=== PATIENT | male | born 1940 | race Hispanic/Latino ===

== ENCOUNTER → 2018-01-30 | Outpatient (CLI) | payer OTHER ==
[~2018-01-30] MED LIST: AMLODIPINE BESY10 MG PO; ASPIR 8181 MG PO; ATORVASTATIN CA40 MG PO; CLOPIDOGREL75 MG PO; FAMOTIDINE20 MG PO; HYDROCHLOROTHIA25 MG PO; IOPAMIDOL 370 MG/ML 200 ML INFUS..BTL INJ ONE; ISOSORBIDE MONO60 MG PO; KLOR-CON 1010 MEQ PO; LASIX20 MG PO; LEVAQUIN500 MG PO; LEVEMIR100 UNIT/1 SQ; LISINOPRIL10 MG PO; METOPROLOL TART25 MG PO; NITROGLYCERIN0.4 MG SL; NOVOLOG100 UNITS1 SQ; POTASSIUM PO; SODIUM CHLORIDE 0.9% 100 ML 100 ML ONE; SODIUM CHLORIDE 0.9% 250ML 250 ML ONE; SODIUM CHLORIDE 0.9% 500ML 500 ML ONE; TAMSULOSIN HCL0.4 MG PO; VITAMIN D PO
[2018-01-30 08:06] LABS: CREATININE, SERUM 1.9 mg/dL (0.72-1.25)
--- NOTE | 2018-01-30 14:52 | Diagnostic Imaging Report ---
PROCEDURE:CTA ABD/PEL/BILATERAL LOWER EXT RUNOFF COMPARISON:None. INDICATIONS:Pseudoaneurysm TECHNIQUE: Multi-detector CT technology with Dose Reduction was employed. Images were obtained after the administration of 100 cc intravenously. For optimization of anatomic evaluation, multiplanar and volume rendering reconstructions were performed. Advanced 3-D off-line postprocessing were performed on a dedicated stand-alone workstation under the direct supervision of the interpreting physician. ESTIMATED DOSE: DLP: 1221 mGy-cm FINDINGS: Aortic and visceral branch vessels: There is a small to moderate amount of plaque throughout the abdominal aorta and branch vessels. There is no aortic aneurysm or dissection. Suprarenal abdominal aorta measures up to 2.5 cm and the infrarenal abdominal aorta measures up to 1.9 cm. The celiac, inferior mesenteric, and renal arteries are patent without significant narrowing. There is a focal dissection flap at the origin of the superior mesenteric artery (series 3, image 28) with mild luminal narrowing. There is a replaced hepatic artery off the SMA which gives rise to the right and left hepatic arteries. There are two right and a single left renal artery. Pelvic vessels: Right common iliac artery: There is a focal dissection flap of the distal right common iliac artery extending into the proximal right external iliac artery (series 3, image 72). The bilateral common, external and internal iliac arteries are patent with scattered atherosclerotic changes. No significant areas of narrowing. Right lower extremity: There is a partially thrombosed pseudoaneurysm arising from the right common femoral artery measuring up to 2.6 x 3.4 x 3.1 cm (AP x TV x SI) on axial series 3 image 106 and coronal series 403 image 59. The neck is not well opacified but measures approximately 2 mm in width and 8 mm in length. The right common femoral, superficial femoral, deep femoral, and popliteal arteries are patent. Mild atherosclerotic changes in the distal popliteal artery. There is a 3 vessel patent run off to the right leg. Left lower extremity: The left common femoral, superficial femoral, deep femoral, and popliteal arteries are patent. Mild atherosclerotic changes in the distal popliteal artery. There is a 3 vessel patent run off to the left leg. There is subcutaneous edema throughout the left lower leg and foot. Surgical clips are present in the left medial thigh. Abdominal and Pelvic soft-tissues and organs: Lung bases: Coronary atherosclerosis. Liver: No focal hepatic lesions on arterial phase imaging. No biliary ductal dilatation. Spleen: No splenomegaly. Pancreas: No pancreatic ductal dilatation. Subcentimeter hypodensity in the pancreatic head, likely side branch IPMN. Adrenal Glands: No evidence of nodule. Kidneys: No evidence of hydronephrosis or stone. A 3 cm hypodense cyst (18 HU) is present in the left mid pole kidney. Lymph nodes: No lymphadenopathy. GI: No bowel distention or wall thickening. Normal appendix. Peritoneum/Retroperitoneum: No free air or fluid. Pelvis: Bladder is unremarkable. Musculoskeletal: Fat containing ventral hernia. Subcutaneous stranding/edema is present in the anterior abdominal wall. Scattered degenerative endplate changes in the lumbar spine. Grade 1 anterolisthesis of L4 on L5. 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 Neck measuring 2 mm in width and approximately 8 mm in length. 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 Incidental focal dissection involving the distal right common iliac artery extending into the proximal right external iliac artery. Scattered atherosclerotic changes as above without significant visceral or lower extremity vascular narrowing or aneurysm. Three vessel runoff to bilateral lower extremities. Dictated by: ANGELA REESE M.D. on 01/30/2018 at 10:38 Electronically approved by: ANGELA REESE M.D. on 01/30/2018 at 10:38
== END ==
LOC: CT 07:20
DX: I72.8 Aneurysm of other specified arteries (principal)
CPT/HCPCS: 36415; 75635; 82565; 82948; 84520; J7040; J7050; Q9967

== ENCOUNTER 2019-09-19 15:37 | Inpatient (IN) | payer OTHER ==
[~2019-09-19] VITALS: Ht 170.2 cm; Wt 86.0 kg
[~2019-09-19 15:37] MED LIST changes: -IOPAMIDOL 370 MG/ML 200 ML INFUS..BTL INJ ONE; -SODIUM CHLORIDE 0.9% 100 ML 100 ML ONE; -SODIUM CHLORIDE 0.9% 250ML 250 ML ONE; -SODIUM CHLORIDE 0.9% 500ML 500 ML ONE
--- OUTSIDE RECORDS SUMMARY | 2019-09-19 15:42 | XMS REPORT | Summary of Care ---
Author Author VENU FLOR Organization Unknown Address Unknown Phone Unavailable Care Team Providers Care Graphite Grinder Name Role Phone IVY Oliveira, DAYSI Unavailable Unavailable VENU FLOR Unavailable Unavailable TAQUERIA TOLLIVER MD Unavailable Unavailable DAYSI HAYNES MD Unavailable Unavailable BRYAN KOCH, TREY Mendenhall Unavailable Unavailable HEMATGREGORY KOCH [place], KEYA Unavailable Unavailable JUANCARLOS KOCH, GRANT Grover Unavailable Unavailable Unavailable Unavailable Functional Status Name Dates Details Functional status health issues are not documented Status: Name Dates Details Cognitive status health issues are not documented Status: Problems Name Dates Details Diabetes mellitus (250.00, E11.9) Status: Active Atrial fibrillation (427.31, I48.91) Status: Active Fatigue (780.79, R53.83) Status: Active CKD (chronic kidney disease) (585.9, N18.9) Status: Active Type 2 diabetes mellitus with other circulatory complication, 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 Active Levemir FlexTouch 100 UNIT/ML Subcutaneous Solution Pen-injector INJECT 38-40 UNIT EVERY NIGHT; may titrate up to 60 units a day * Quantity: 4 Refills: 1 IVY M.D., DAYSI Active 5 x 3 ML Pen NovoLOG FlexPen 100 UNIT/ML Subcutaneous Solution Pen-injector INJECT 13-16 UNIT Before meals; 2 for snacks; CF 40; up to 80 units a day * Quantity: 5 Refills: 1 IVY M.D., DAYSI Active 5 x 3 ML Pen Atorvastatin Calcium 80 MG Oral Tablet Per inspector paper products * Refills: 0 IVY M.D., DAYSI Active Vitamin D 50 MCG (1999) Oral Tablet TAKE 1 TABLET DAILY * Refills: 0 Active Furosemide 40 MG Oral Tablet * Refills: 0 IVY M.D., DAYSI Active Xarelto 15 MG Oral Tablet * Refills: 0 DAYSI HAYNES M.D. * Start : 18-May-2017 Active Metoprolol Tartrate 25 MG Oral Tablet * Refills: 0 DAYSI HAYNES M.D. * Start : 18-May-2017 Active Pen [place] 32G X 4 MM 6 a day * Quantity: 500 Refills: 4 DAYSI HAYNES M.D. * Start : 18-May-2017 Active OneTouch Verio In Vitro Strip CHECK BLOOD GLUCOSE 3-4 TIMES A DAY * Quantity: 300 Refills: 3 DAYSI HAYNES M.D. * Start : 18-May-2017 Active OneTouch Delica Lancets 33G USE DIRECTED THREE TIMES DAILY OR FOUR TIMES DAILY * Quantity: 4 Refills: 0 DAYSI HAYNES M.D. * Start : 18-May-2017 Active Each Clopidogrel Bisulfate 75 MG Oral Tablet * Refills: 0 DAYSI HAYNES M.D. * Start : 06-Nov-2017 Active Tylenol with Codeine #3 300-30 MG Oral Tablet Not taking * Refills: 0 DAYSI HAYNES M.D. * Start : 06-Feb-2018 Active Nitroglycerin 0.4 MG Sublingual Tablet Sublingual * Refills: 0 DAYSI HAYNES M.D. * Start : 06-Feb-2018 Active Ranexa 500 MG Oral Tablet Extended Release 12 Hour * Refills: 0 DAYSI HAYNES M.D. * Start : 06-Feb-2018 Active Famotidine 20 MG Oral Tablet * Refills: 0 DAYSI HAYNES M.D. * Start : 06-Feb-2018 Active hydrALAZINE HCl - 25 MG Oral Tablet * Refills: 0 DAYSI HAYNES M.D. * Start : 25-May-2018 Active Aspirin Adult Low Dose 81 MG Oral Tablet Delayed Release * Refills: 0 DAYSI HAYNES M.D. * Start : 24-Dec-2018 Active metOLazone 5 MG Oral Tablet * Refills: 0 DAYSI HAYNES M.D. * Start : 24-Dec-2018 Active Potassium Chloride ER 10 MEQ Oral Capsule Extended Release * Refills: 0 DAYSI HAYNES M.D. * Start : 24-Dec-2018 Active Ferrous Sulfate 325 (65 Fe) MG Oral Tablet * Refills: 0 IVY M.D., DAYSI * Start : 24-Dec-2018 Active Allopurinol 100 MG Oral Tablet * Refills: 0 IVY Oliveira, DAYSI * Start : 17-May-2019 Active Colcrys 0.6 MG Oral Tablet * Refills: 0 IVY Oliveira, DAYSI * Start : 17-May-2019 Active Allergies and Adverse Reactions Name Dates Details No Known Drug Allergies (Allergy) Status: Active Past Medical History Name Dates Details History of BPH (V13.89, Z87.438) Status: Resolved History of coronary atherosclerosis (V12.59, Z86.79) Status: Resolved Procedures Procedure Dates Details [[facility]] HEMOGLOBIN A1c Date: 17-May-2019 [[facility]] LIPID PANEL Date: 17-May-2019 History of Coronary artery bypass graft Completed History of Percutaneous transluminal coronary angioplasty Completed History of Prostate resection transurethral Completed History of PTCA Completed History of Implantable Cardioverter-Defibrillator Completed Immunization Name Dates Details Influenza Comments: Approx [id number] Influenza on: 09-May-2019 Family History Name Dates Details Family history of diabetes mellitus (V18.0, Z83.3) Status: Active Name Dates Details Family history of coronary artery disease (V17.3, Z82.49) Status: Active Name Dates Details Family history of diabetes mellitus (V18.0, Z83.3) Status: Active Name Dates Details Family history of diabetes mellitus (V18.0, Z83.3) Status: Active Social History Name Dates Details - Status: Name Dates Details Never smoker Vital Signs Date Test Result Details No Known Vitals to report Results Date Description Value Details 22-Feb-20196:00 Positive Retinal Eye Exam (Diabetic) Positive Diabetic Eye Screening [id number] (Abnormal) Plan of Care Name Dates Details Planned Observations Planned Goals not documented Planned Encounters Appointment; VENU FLOR On: 20-Jun-2019 9:00 Appointment; GRANT BAUER M.D. On: 22-Jul-2019 13:45 Appointment; DAYSI HAYNES M.D. On: 11-Sep-2019 14:45 Instructions Name Dates Details Instructions not documented Encounters Appointment; DAYSI HAYNES M.D. Encounter Diagnosis: Problem not documented On: 08-Aug-2017 14:15 Appointment; DAYSI HAYNES M.D. Encounter Diagnosis: Problem not documented On: 06-Nov-2017 15:15 Appointment; DAYSI HAYNES M.D. Encounter Diagnosis: Problem not documented On: 06-Feb-2018 15:15 Appointment; DAYSI HAYNES M.D. Encounter Diagnosis: Problem not documented On: 25-May-2018 13:30 Appointment; DAYSI HAYNES M.D. Encounter Diagnosis: Problem not documented On: 23-Aug-2018 14:15 Appointment; DAYSI HAYNES M.D. Encounter Diagnosis: Problem not documented On: 24-Dec-2018 13:00 Appointment; KEYA MAGALLON Encounter Diagnosis: Problem not documented On: 05-Feb-2019 9:45 Appointment; JOANA, RAJAT Encounter Diagnosis: Problem not documented On: 26-Mar-2019 14:30 Appointment; DAYSI HAYNES M.D. Encounter Diagnosis: Problem not documented On: 17-May-2019 13:00 Appointment; VENU FLOR Encounter Diagnosis: Problem not documented On: 18-Jun-2019 10:30
--- OUTSIDE RECORDS SUMMARY | 2019-09-19 15:42 | XMS REPORT ---
[facility] Address Unknown Phone Unavailable Care Team Providers Care Public Health Educator Name Role Phone NICOLA MCCALL Unavailable Unavailable Payers Payer Name Policy Type Policy Number Effective Date Expiration Date Problems This patient has no known problems. Allergies, Adverse Reactions, Alerts Allergy Name Allergy Type Status Severity Reaction(s) Onset Date Inactive Date Treating Clinician Comments No Known Allergies DA Active U 2019-08-31 00:00:00 No Known Allergies DA Active U 2019-08-30 00:00:00 No Known Allergies DA Active U 2018-01-30 00:00:00 Medications This patient has no known medications. Results Test Description Test Time Test Comments Text Results Atomic Results Result Comments GLUBED 2019-09-12 11:45:00 GLUBED (test code=GLUBED) 137 mg/dL 74-106 Performed by certified dog food shredder operator at [facility] BASIC METABOLIC [id number] 07:30:00* Test Item Value Reference Range Comments SODIUM (test code=NA) 133 mmol/L 136-145 POTASSIUM (test code=K) 4.3 mmol/L 3.5-5.1 CHLORIDE (test code=CL) 101.0 mmol/L 98-107 CARBON DIOXIDE (test code=CO2) 23.0 mmol/L 21-32 ANION GAP (test code=GAP) 13.3 10-20 GLUCOSE (test code=GLU) 120 mg/dL 74-106 BLOOD UREA NITROGEN (test code=BUN) 84 mg/dL 7-18 GLOMERULAR FILTRATION RATE (test code=GFR) 25 mL/min >=60 Estimated GFR by using Modified MDRD formula.Chronic kidney disease is defined as either kidney damageor GFR <60 mL/min/1.73 m2 for >3 months. CREATININE (test code=CREAT) 2.50 mg/dL 0.7-1.3 BUN/CREATININE RATIO (test code=BUN/CREA) 33.6 10-20 CALCIUM (test code=CA) 8.3 mg/dL 8.5-10.1 BASIC METABOLIC [id number] 07:25:00* Test Item Value Reference Range Comments SODIUM (test code=NA) 133 mmol/L 136-145 POTASSIUM (test code=K) 4.3 mmol/L 3.5-5.1 CHLORIDE (test code=CL) 101.0 mmol/L 98-107 CARBON DIOXIDE (test code=CO2) mmol/L 21-32 ANION GAP (test code=GAP) 10-20 GLUCOSE (test code=GLU) mg/dL 74-106 BLOOD UREA NITROGEN (test code=BUN) mg/dL 7-18 GLOMERULAR FILTRATION RATE (test code=GFR) mL/min >=60 CREATININE (test code=CREAT) mg/dL 0.7-1.3 BUN/CREATININE RATIO (test code=BUN/CREA) 10-20 CALCIUM (test code=CA) mg/dL 8.5-10.1 CBC W/AUTO [id number] 06:58:00* Test Item Value Reference Range Comments WHITE BLOOD CELL (test code=WBC) 15.8 K/mm3 4.5-12.5 RED BLOOD CELL (test code=RBC) 3.17 mill/mm3 4.0-5.8 HEMOGLOBIN (test code=HGB) 9.5 gram/dL 13.0-17.5 HEMATOCRIT (test code=HCT) 28.6 % 42.0-52.0 MEAN CELL VOLUME (test code=MCV) 90.2 fL 80-98 MEAN CELL HGB (test code=MCH) 30.0 picogram 27.0-33.0 MEAN CELL HGB CONCETRATION (test code=MCHC) 33.2 gram/dL 33.0-36.0 RED CELL DISTRIBUTION WIDTH (test code=RDW) 17.3 % 11.6-16.2 RED CELL DISTRIBUTION WIDTH SD (test code=RDW-SD) 55.2 fL 37.0-51.0 PLATELET COUNT (test code=PLT) 208 K/mm3 150-450 MEAN PLATELET VOLUME (test code=MPV) 12.7 fL 6.7-11.0 NEUTROPHIL % (test code=NT%) 76.0 % 39.0-69.0 IMMATURE GRANULOCYTE % (test code=IG%) 2.0 % 0.0-5.0 LYMPHOCYTE % (test code=LY%) 8.5 % 25.0-55.0 MONOCYTE % (test code=MO%) 11.1 % 0.0-10.0 EOSINOPHIL % (test code=EO%) 2.3 % 0.0-5.0 BASOPHIL % (test code=BA%) 0.1 % 0.0-1.0 NUCLEATED RBC % (test code=NRBC%) 0.9 % 0-0 NEUTROPHIL # (test code=NT#) 12.03 K/mm3 1.8-7.7 IMMATURE GRANULOCYTE # (test code=IG#) 0.31 x10 3/uL 0-0.03 LYMPHOCYTE # (test code=LY#) 1.34 K/mm3 1.0-5.0 MONOCYTE # (test code=MO#) 1.76 K/mm3 0-0.8 EOSINOPHIL # (test code=EO#) 0.37 K/mm3 0.0-0.5 BASOPHIL # (test code=BA#) 0.02 K/mm3 0.0-0.2 NUCLEATED RBC # (test code=NRBC#) 0.15 K/mm3 0.0-0.1 MANUAL DIFF REQUIRED (test code=MDIFF) NO [id number] 05:43:00* Test Item Value Reference Range Comments GLUBED (test code=GLUBED) 127 mg/dL 74-106 Performed by certified dog food shredder operator at [facility] [id number] 21:17:00* Test Item Value Reference Range Comments GLUBED (test code=GLUBED) 251 mg/dL 74-106 Performed by certified dog food shredder operator at [facility] [id number] 14:58:00* Test Item Value Reference Range Comments GLUBED (test code=GLUBED) 131 mg/dL 74-106 Performed by certified dog food shredder operator at [facility] [id number] 10:57:00* Test Item Value Reference Range Comments GLUBED (test code=GLUBED) 131 mg/dL 74-106 Performed by certified dog food shredder operator at [facility] URINALYSIS [id number] 10:11:00* Test Item Value Reference Range Comments UA COLOR (test code=COLU) YELLOW YELLOW UA APPEARANCE (test code=APPU) CLEAR CLEAR UA GLUCOSE DIPSTICK (test code=DGLUU) NEGATIVE mg/dL NEGATIVE UA BILIRUBIN DIPSTICK (test code=BILU) NEGATIVE mg/dL NEGATIVE UA KETONE DIPSTICK (test code=KETU) NEGATIVE mg/dL NEGATIVE UA SPECIFIC GRAVITY (test code=SGU) 1.013 1.001-1.035 UA BLOOD DIPSTICK (test code=TIFF) 0.1 mg/dL (1+) mg/dL NEGATIVE UA PH DIPSTICK (test code=CRISTOFER) 5.0 5.0-8.0 UA PROTEIN DIPSTICK (test code=PROU) NEGATIVE mg/dL NEGATIVE UA UROBILINIOGEN DIPSTICK (test code=URO) Normal mg/dL NEGATIVE UA NITRITE DIPSTICK (test code=GENET) NEGATIVE NEGATIVE UA LEUKOCYTE ESTERASE W REFLEX (test code=LEUUR) 250 Isael/uL (2+) Isael/uL NEGATIVE UA WBC (test code=WBCU) 21-50 per HPF 0-5 UA RBC (test code=RBCU) 6-10 #/HPF 0-5 UA EPITHELIAL CELLS (test code=EPIU) FEW per HPF FEW UA BACTERIA (test code=BACU) FEW #/HPF NONE SPECIMEN COMMENTS: CLEAN CATCHUrine Source? Clean CatchURINALYSIS COMPLETE 2019-09-11 10:10:00* Test Item Value Reference Range Comments UA COLOR (test code=COLU) YELLOW YELLOW UA APPEARANCE (test code=APPU) CLEAR CLEAR UA GLUCOSE DIPSTICK (test code=DGLUU) NEGATIVE mg/dL NEGATIVE UA BILIRUBIN DIPSTICK (test code=BILU) NEGATIVE mg/dL NEGATIVE UA KETONE DIPSTICK (test code=KETU) NEGATIVE mg/dL NEGATIVE UA SPECIFIC GRAVITY (test code=SGU) 1.013 1.001-1.035 UA BLOOD DIPSTICK (test code=TIFF) 0.1 mg/dL (1+) mg/dL NEGATIVE UA PH DIPSTICK (test code=CRISTOFER) 5.0 5.0-8.0 UA PROTEIN DIPSTICK (test code=PROU) NEGATIVE mg/dL NEGATIVE UA UROBILINIOGEN DIPSTICK (test code=URO) Normal mg/dL NEGATIVE UA NITRITE DIPSTICK (test code=GENET) NEGATIVE NEGATIVE UA LEUKOCYTE ESTERASE W REFLEX (test code=LEUUR) 250 Isael/uL (2+) Isael/uL NEGATIVE UA WBC (test code=WBCU) per HPF 0-5 UA RBC (test code=RBCU) per HPF 0-5 UA EPITHELIAL CELLS (test code=EPIU) per HPF Few UA BACTERIA (test code=BACU) per HPF NONE SPECIMEN COMMENTS: CLEAN CATCHUrine Source? Clean CatchCBC W/MANUAL DIFF 2019-09-11 06:46:00* Test Item Value Reference Range Comments WHITE BLOOD CELL (test code=WBC) 20.0 K/mm3 4.5-12.5 RED BLOOD CELL (test code=RBC) 3.48 mill/mm3 4.0-5.8 HEMOGLOBIN (test code=HGB) 10.3 gram/dL 13.0-17.5 HEMATOCRIT (test code=HCT) 31.4 % 42.0-52.0 MEAN CELL VOLUME (test code=MCV) 90.2 fL 80-98 MEAN CELL HGB (test code=MCH) 29.6 picogram 27.0-33.0 MEAN CELL HGB CONCETRATION (test code=MCHC) 32.8 gram/dL 33.0-36.0 RED CELL DISTRIBUTION WIDTH (test code=RDW) 16.9 % 11.6-16.2 RED CELL DISTRIBUTION WIDTH SD (test code=RDW-SD) 53.8 fL 37.0-51.0 PLATELET COUNT (test code=PLT) 242 K/mm3 150-450 MEAN PLATELET VOLUME (test code=MPV) 12.5 fL 6.7-11.0 NEUTROPHIL % (test code=NT%) 71.0 % 39.0-69.0 IMMATURE GRANULOCYTE % (test code=IG%) 2.2 % 0.0-5.0 LYMPHOCYTE % (test code=LY%) 13.2 % 25.0-55.0 MONOCYTE % (test code=MO%) 11.4 % 0.0-10.0 EOSINOPHIL % (test code=EO%) 2.0 % 0.0-5.0 BASOPHIL % (test code=BA%) 0.2 % 0.0-1.0 NUCLEATED RBC % (test code=NRBC%) 1.8 % 0-0 NEUTROPHIL # (test code=NT#) 14.21 K/mm3 1.8-7.7 IMMATURE GRANULOCYTE # (test code=IG#) 0.43 x10 3/uL 0-0.03 LYMPHOCYTE # (test code=LY#) 2.63 K/mm3 1.0-5.0 MONOCYTE # (test code=MO#) 2.27 K/mm3 0-0.8 EOSINOPHIL # (test code=EO#) 0.39 K/mm3 0.0-0.5 BASOPHIL # (test code=BA#) 0.04 K/mm3 0.0-0.2 NUCLEATED RBC # (test code=NRBC#) 0.36 K/mm3 0.0-0.1 MANUAL DIFF REQUIRED (test code=MDIFF) DIFF NEEDED STAIN ACCEPTABILITY (test code=STN ACCEPTABLE) STAIN ACCEPTABLE TOTAL CELLS COUNTED (test code=TCC) 114 #CELLS SEGMENTED NEUTROPHILS (test code=SEG) 75.4 % 39-69 BAND NEUTROPHIL (test code=BAND) 0 % 0-10 LYMPHOCYTE (test code=LYMPH) 11.4 % 25-55 REACTIVE LYMPH (test code=RELYMPH) 0 % MONOCYTE (test code=MON) 7.9 % 0-10 EOSINOPHIL (test code=EOS) 5.3 % 0.0-5.0 BASOPHIL (test code=BASO) 0 % 0-1.0 METAMYELOCYTE (test code=META) 0 % 0-0 MYELOCYTE (test code=MYELO) 0 % 0.0-0.0 PROMYELOCYTE (test code=PROM) 0 % 0-0 POLYCHROMASIA (test code=POLC) 2+ ANISOCYTOSIS (test code=ANISO) 1+ MICROCYTOSIS (test code=MICR) 1+ PLATELET ESTIMATE (test code=PLTEST) ADEQUATE PLATELET MORPHOLOGY (test code=PLTMORPH) NORMAL IMMATURE FORMS (test code=IMMAT) 0 % 0-0 CBC W/MANUAL [id number] 06:35:00* Test Item Value Reference Range Comments WHITE BLOOD CELL (test code=WBC) 20.0 K/mm3 4.5-12.5 RED BLOOD CELL (test code=RBC) 3.48 mill/mm3 4.0-5.8 HEMOGLOBIN (test code=HGB) 10.3 gram/dL 13.0-17.5 HEMATOCRIT (test code=HCT) 31.4 % 42.0-52.0 MEAN CELL VOLUME (test code=MCV) 90.2 fL 80-98 MEAN CELL HGB (test code=MCH) 29.6 picogram 27.0-33.0 MEAN CELL HGB CONCETRATION (test code=MCHC) 32.8 gram/dL 33.0-36.0 RED CELL DISTRIBUTION WIDTH (test code=RDW) 16.9 % 11.6-16.2 RED CELL DISTRIBUTION WIDTH SD (test code=RDW-SD) 53.8 fL 37.0-51.0 PLATELET COUNT (test code=PLT) 242 K/mm3 150-450 MEAN PLATELET VOLUME (test code=MPV) 12.5 fL 6.7-11.0 NEUTROPHIL % (test code=NT%) 71.0 % 39.0-69.0 IMMATURE GRANULOCYTE % (test code=IG%) 2.2 % 0.0-5.0 LYMPHOCYTE % (test code=LY%) 13.2 % 25.0-55.0 MONOCYTE % (test code=MO%) 11.4 % 0.0-10.0 EOSINOPHIL % (test code=EO%) 2.0 % 0.0-5.0 BASOPHIL % (test code=BA%) 0.2 % 0.0-1.0 NUCLEATED RBC % (test code=NRBC%) 1.8 % 0-0 NEUTROPHIL # (test code=NT#) 14.21 K/mm3 1.8-7.7 IMMATURE GRANULOCYTE # (test code=IG#) 0.43 x10 3/uL 0-0.03 LYMPHOCYTE # (test code=LY#) 2.63 K/mm3 1.0-5.0 MONOCYTE # (test code=MO#) 2.27 K/mm3 0-0.8 EOSINOPHIL # (test code=EO#) 0.39 K/mm3 0.0-0.5 BASOPHIL # (test code=BA#) 0.04 K/mm3 0.0-0.2 NUCLEATED RBC # (test code=NRBC#) 0.36 K/mm3 0.0-0.1 MANUAL DIFF REQUIRED (test code=MDIFF) DIFF NEEDED STAIN ACCEPTABILITY (test code=STN ACCEPTABLE) TOTAL CELLS COUNTED (test code=TCC) #CELLS SEGMENTED NEUTROPHILS (test code=SEG) % 39-69 LYMPHOCYTE (test code=LYMPH) % 25-55 MONOCYTE (test code=MON) % 0-10 EOSINOPHIL (test code=EOS) % 0.0-5.0 CABOT RINGS (test code=CAB) MORPHOLOGY COMMENT (test code=MOC) PLATELET ESTIMATE (test code=PLTEST) PLATELET MORPHOLOGY (test code=PLTMORPH) CBC W/MANUAL [id number] 06:35:00* Test Item Value Reference Range Comments WHITE BLOOD CELL (test code=WBC) 20.0 K/mm3 4.5-12.5 RED BLOOD CELL (test code=RBC) 3.48 mill/mm3 4.0-5.8 HEMOGLOBIN (test code=HGB) 10.3 gram/dL 13.0-17.5 HEMATOCRIT (test code=HCT) 31.4 % 42.0-52.0 MEAN CELL VOLUME (test code=MCV) 90.2 fL 80-98 MEAN CELL HGB (test code=MCH) 29.6 picogram 27.0-33.0 MEAN CELL HGB CONCETRATION (test code=MCHC) 32.8 gram/dL 33.0-36.0 RED CELL DISTRIBUTION WIDTH (test code=RDW) 16.9 % 11.6-16.2 RED CELL DISTRIBUTION WIDTH SD (test code=RDW-SD) 53.8 fL 37.0-51.0 PLATELET COUNT (test code=PLT) 242 K/mm3 150-450 MEAN PLATELET VOLUME (test code=MPV) 12.5 fL 6.7-11.0 NEUTROPHIL % (test code=NT%) 71.0 % 39.0-69.0 IMMATURE GRANULOCYTE % (test code=IG%) 2.2 % 0.0-5.0 LYMPHOCYTE % (test code=LY%) 13.2 % 25.0-55.0 MONOCYTE % (test code=MO%) 11.4 % 0.0-10.0 EOSINOPHIL % (test code=EO%) 2.0 % 0.0-5.0 BASOPHIL % (test code=BA%) 0.2 % 0.0-1.0 NUCLEATED RBC % (test code=NRBC%) 1.8 % 0-0 NEUTROPHIL # (test code=NT#) 14.21 K/mm3 1.8-7.7 IMMATURE GRANULOCYTE # (test code=IG#) 0.43 x10 3/uL 0-0.03 LYMPHOCYTE # (test code=LY#) 2.63 K/mm3 1.0-5.0 MONOCYTE # (test code=MO#) 2.27 K/mm3 0-0.8 EOSINOPHIL # (test code=EO#) 0.39 K/mm3 0.0-0.5 BASOPHIL # (test code=BA#) 0.04 K/mm3 0.0-0.2 NUCLEATED RBC # (test code=NRBC#) 0.36 K/mm3 0.0-0.1 MANUAL DIFF REQUIRED (test code=MDIFF) DIFF NEEDED STAIN ACCEPTABILITY (test code=STN ACCEPTABLE) TOTAL CELLS COUNTED (test code=TCC) #CELLS SEGMENTED NEUTROPHILS (test code=SEG) % 39-69 LYMPHOCYTE (test code=LYMPH) % 25-55 MONOCYTE (test code=MON) % 0-10 EOSINOPHIL (test code=EOS) % 0.0-5.0 CABOT RINGS (test code=CAB) MORPHOLOGY COMMENT (test code=MOC) PLATELET ESTIMATE (test code=PLTEST) PLATELET MORPHOLOGY (test code=PLTMORPH) CBC W/MANUAL [id number] 06:35:00* Test Item Value Reference Range Comments WHITE BLOOD CELL (test code=WBC) 20.0 K/mm3 4.5-12.5 RED BLOOD CELL (test code=RBC) 3.48 mill/mm3 4.0-5.8 HEMOGLOBIN (test code=HGB) 10.3 gram/dL 13.0-17.5 HEMATOCRIT (test code=HCT) 31.4 % 42.0-52.0 MEAN CELL VOLUME (test code=MCV) 90.2 fL 80-98 MEAN CELL HGB (test code=MCH) 29.6 picogram 27.0-33.0 MEAN CELL HGB CONCETRATION (test code=MCHC) 32.8 gram/dL 33.0-36.0 RED CELL DISTRIBUTION WIDTH (test code=RDW) 16.9 % 11.6-16.2 RED CELL DISTRIBUTION WIDTH SD (test code=RDW-SD) 53.8 fL 37.0-51.0 PLATELET COUNT (test code=PLT) 242 K/mm3 150-450 MEAN PLATELET VOLUME (test code=MPV) 12.5 fL 6.7-11.0 NEUTROPHIL % (test code=NT%) 71.0 % 39.0-69.0 IMMATURE GRANULOCYTE % (test code=IG%) 2.2 % 0.0-5.0 LYMPHOCYTE % (test code=LY%) 13.2 % 25.0-55.0 MONOCYTE % (test code=MO%) 11.4 % 0.0-10.0 EOSINOPHIL % (test code=EO%) 2.0 % 0.0-5.0 BASOPHIL % (test code=BA%) 0.2 % 0.0-1.0 NUCLEATED RBC % (test code=NRBC%) 1.8 % 0-0 NEUTROPHIL # (test code=NT#) 14.21 K/mm3 1.8-7.7 IMMATURE GRANULOCYTE # (test code=IG#) 0.43 x10 3/uL 0-0.03 LYMPHOCYTE # (test code=LY#) 2.63 K/mm3 1.0-5.0 MONOCYTE # (test code=MO#) 2.27 K/mm3 0-0.8 EOSINOPHIL # (test code=EO#) 0.39 K/mm3 0.0-0.5 BASOPHIL # (test code=BA#) 0.04 K/mm3 0.0-0.2 NUCLEATED RBC # (test code=NRBC#) 0.36 K/mm3 0.0-0.1 MANUAL DIFF REQUIRED (test code=MDIFF) DIFF NEEDED STAIN ACCEPTABILITY (test code=STN ACCEPTABLE) TOTAL CELLS COUNTED (test code=TCC) #CELLS SEGMENTED NEUTROPHILS (test code=SEG) % 39-69 LYMPHOCYTE (test code=LYMPH) % 25-55 MONOCYTE (test code=MON) % 0-10 EOSINOPHIL (test code=EOS) % 0.0-5.0 MORPHOLOGY COMMENT (test code=MOC) PLATELET ESTIMATE (test code=PLTEST) PLATELET MORPHOLOGY (test code=PLTMORPH) CBC W/MANUAL [id number] 06:35:00* Test Item Value Reference Range Comments WHITE BLOOD CELL (test code=WBC) 20.0 K/mm3 4.5-12.5 RED BLOOD CELL (test code=RBC) 3.48 mill/mm3 4.0-5.8 HEMOGLOBIN (test code=HGB) 10.3 gram/dL 13.0-17.5 HEMATOCRIT (test code=HCT) 31.4 % 42.0-52.0 MEAN CELL VOLUME (test code=MCV) 90.2 fL 80-98 MEAN CELL HGB (test code=MCH) 29.6 picogram 27.0-33.0 MEAN CELL HGB CONCETRATION (test code=MCHC) 32.8 gram/dL 33.0-36.0 RED CELL DISTRIBUTION WIDTH (test code=RDW) 16.9 % 11.6-16.2 RED CELL DISTRIBUTION WIDTH SD (test code=RDW-SD) 53.8 fL 37.0-51.0 PLATELET COUNT (test code=PLT) 242 K/mm3 150-450 MEAN PLATELET VOLUME (test code=MPV) 12.5 fL 6.7-11.0 NEUTROPHIL % (test code=NT%) 71.0 % 39.0-69.0 IMMATURE GRANULOCYTE % (test code=IG%) 2.2 % 0.0-5.0 LYMPHOCYTE % (test code=LY%) 13.2 % 25.0-55.0 MONOCYTE % (test code=MO%) 11.4 % 0.0-10.0 EOSINOPHIL % (test code=EO%) 2.0 % 0.0-5.0 BASOPHIL % (test code=BA%) 0.2 % 0.0-1.0 NUCLEATED RBC % (test code=NRBC%) 1.8 % 0-0 NEUTROPHIL # (test code=NT#) 14.21 K/mm3 1.8-7.7 IMMATURE GRANULOCYTE # (test code=IG#) 0.43 x10 3/uL 0-0.03 LYMPHOCYTE # (test code=LY#) 2.63 K/mm3 1.0-5.0 MONOCYTE # (test code=MO#) 2.27 K/mm3 0-0.8 EOSINOPHIL # (test code=EO#) 0.39 K/mm3 0.0-0.5 BASOPHIL # (test code=BA#) 0.04 K/mm3 0.0-0.2 NUCLEATED RBC # (test code=NRBC#) 0.36 K/mm3 0.0-0.1 MANUAL DIFF REQUIRED (test code=MDIFF) DIFF NEEDED STAIN ACCEPTABILITY (test code=STN ACCEPTABLE) TOTAL CELLS COUNTED (test code=TCC) #CELLS SEGMENTED NEUTROPHILS (test code=SEG) % 39-69 LYMPHOCYTE (test code=LYMPH) % 25-55 MONOCYTE (test code=MON) % 0-10 MORPHOLOGY COMMENT (test code=MOC) PLATELET ESTIMATE (test code=PLTEST) PLATELET MORPHOLOGY (test code=PLTMORPH) CBC W/MANUAL [id number] 06:35:00* Test Item Value Reference Range Comments WHITE BLOOD CELL (test code=WBC) 20.0 K/mm3 4.5-12.5 RED BLOOD CELL (test code=RBC) 3.48 mill/mm3 4.0-5.8 HEMOGLOBIN (test code=HGB) 10.3 gram/dL 13.0-17.5 HEMATOCRIT (test code=HCT) 31.4 % 42.0-52.0 MEAN CELL VOLUME (test code=MCV) 90.2 fL 80-98 MEAN CELL HGB (test code=MCH) 29.6 picogram 27.0-33.0 MEAN CELL HGB CONCETRATION (test code=MCHC) 32.8 gram/dL 33.0-36.0 RED CELL DISTRIBUTION WIDTH (test code=RDW) 16.9 % 11.6-16.2 RED CELL DISTRIBUTION WIDTH SD (test code=RDW-SD) 53.8 fL 37.0-51.0 PLATELET COUNT (test code=PLT) 242 K/mm3 150-450 MEAN PLATELET VOLUME (test code=MPV) 12.5 fL 6.7-11.0 NEUTROPHIL % (test code=NT%) 71.0 % 39.0-69.0 IMMATURE GRANULOCYTE % (test code=IG%) 2.2 % 0.0-5.0 LYMPHOCYTE % (test code=LY%) 13.2 % 25.0-55.0 MONOCYTE % (test code=MO%) 11.4 % 0.0-10.0 EOSINOPHIL % (test code=EO%) 2.0 % 0.0-5.0 BASOPHIL % (test code=BA%) 0.2 % 0.0-1.0 NUCLEATED RBC % (test code=NRBC%) 1.8 % 0-0 NEUTROPHIL # (test code=NT#) 14.21 K/mm3 1.8-7.7 IMMATURE GRANULOCYTE # (test code=IG#) 0.43 x10 3/uL 0-0.03 LYMPHOCYTE # (test code=LY#) 2.63 K/mm3 1.0-5.0 MONOCYTE # (test code=MO#) 2.27 K/mm3 0-0.8 EOSINOPHIL # (test code=EO#) 0.39 K/mm3 0.0-0.5 BASOPHIL # (test code=BA#) 0.04 K/mm3 0.0-0.2 NUCLEATED RBC # (test code=NRBC#) 0.36 K/mm3 0.0-0.1 MANUAL DIFF REQUIRED (test code=MDIFF) DIFF NEEDED STAIN ACCEPTABILITY (test code=STN ACCEPTABLE) TOTAL CELLS COUNTED (test code=TCC) #CELLS SEGMENTED NEUTROPHILS (test code=SEG) % 39-69 LYMPHOCYTE (test code=LYMPH) % 25-55 MONOCYTE (test code=MON) % 0-10 EOSINOPHIL (test code=EOS) % 0.0-5.0 CABOT RINGS (test code=CAB) MORPHOLOGY COMMENT (test code=MOC) PLATELET ESTIMATE (test code=PLTEST) PLATELET MORPHOLOGY (test code=PLTMORPH) BASIC METABOLIC [id number] 06:23:00* Test Item Value Reference Range Comments SODIUM (test code=NA) 130 mmol/L 136-145 POTASSIUM (test code=K) 3.6 mmol/L 3.5-5.1 CHLORIDE (test code=CL) 98.0 mmol/L 98-107 CARBON DIOXIDE (test code=CO2) 24.0 mmol/L 21-32 ANION GAP (test code=GAP) 11.6 10-20 GLUCOSE (test code=GLU) 66 mg/dL 74-106 BLOOD UREA NITROGEN (test code=BUN) 98 mg/dL 7-18 GLOMERULAR FILTRATION RATE (test code=GFR) 23 mL/min >=60 Estimated GFR by using Modified MDRD formula.Chronic kidney disease is defined as either kidney damageor GFR <60 mL/min/1.73 m2 for >3 months. CREATININE (test code=CREAT) 2.70 mg/dL 0.7-1.3 BUN/CREATININE RATIO (test code=BUN/CREA) 36.3 10-20 CALCIUM (test code=CA) 8.4 mg/dL 8.5-10.1 BASIC METABOLIC [id number] 06:14:00* Test Item Value Reference Range Comments SODIUM (test code=NA) 130 mmol/L 136-145 POTASSIUM (test code=K) 3.6 mmol/L 3.5-5.1 CHLORIDE (test code=CL) 98.0 mmol/L 98-107 CARBON DIOXIDE (test code=CO2) mmol/L 21-32 ANION GAP (test code=GAP) 10-20 GLUCOSE (test code=GLU) mg/dL 74-106 BLOOD UREA NITROGEN (test code=BUN) mg/dL 7-18 GLOMERULAR FILTRATION RATE (test code=GFR) mL/min >=60 CREATININE (test code=CREAT) mg/dL 0.7-1.3 BUN/CREATININE RATIO (test code=BUN/CREA) 10-20 CALCIUM (test code=CA) mg/dL 8.5-10.1 [id number] 05:32:00* Test Item Value Reference Range Comments GLUBED (test code=GLUBED) 60 mg/dL 74-106 Performed by certified dog food shredder operator at [facility] [id number] 21:07:00* Test Item Value Reference Range Comments GLUBED (test code=GLUBED) 95 mg/dL 74-106 Performed by certified dog food shredder operator at [facility] [id number] 16:28:00* Test Item Value Reference Range Comments GLUBED (test code=GLUBED) 172 mg/dL 74-106 Performed by certified dog food shredder operator at [facility] [id number] 16:28:00* Test Item Value Reference Range Comments GLUBED (test code=GLUBED) 120 mg/dL 74-106 Performed by certified dog food shredder operator at [facility] BASIC METABOLIC [id number] 06:16:00* Test Item Value Reference Range Comments SODIUM (test code=NA) 132 mmol/L 136-145 POTASSIUM (test code=K) 3.4 mmol/L 3.5-5.1 CHLORIDE (test code=CL) 99.0 mmol/L 98-107 CARBON DIOXIDE (test code=CO2) 23.0 mmol/L 21-32 ANION GAP (test code=GAP) 13.4 10-20 GLUCOSE (test code=GLU) 80 mg/dL 74-106 BLOOD UREA NITROGEN (test code=BUN) 107 mg/dL 7-18 GLOMERULAR FILTRATION RATE (test code=GFR) 18 mL/min >=60 Estimated GFR by using Modified MDRD formula.Chronic kidney disease is defined as either kidney damageor GFR <60 mL/min/1.73 m2 for >3 months. CREATININE (test code=CREAT) 3.30 mg/dL 0.7-1.3 BUN/CREATININE RATIO (test code=BUN/CREA) 32.4 10-20 CALCIUM (test code=CA) 8.4 mg/dL 8.5-10.1 FE W/TOTAL IRON BINDING CAP.2019-09-10 06:16:00* Test Item Value Reference Range Comments SERUM IRON (test code=IRON) 15 ug/dL 50-175 TOTAL IRON BINDING CAPACITY (test code=TIBC) 286 mcg/dL 250-450 IRON SATURATION (test code=FESAT) 5.24 % 13-45 [id number] 06:16:00* Test Item Value Reference Range Comments FERRITIN (test code=SILVIA) 55 ng/mL 8-388 CBC W/MANUAL [id number] 06:12:00* Test Item Value Reference Range Comments WHITE BLOOD CELL (test code=WBC) 18.0 K/mm3 4.5-12.5 RED BLOOD CELL (test code=RBC) 3.32 mill/mm3 4.0-5.8 HEMOGLOBIN (test code=HGB) 9.8 gram/dL 13.0-17.5 HEMATOCRIT (test code=HCT) 29.6 % 42.0-52.0 MEAN CELL VOLUME (test code=MCV) 89.2 fL 80-98 MEAN CELL HGB (test code=MCH) 29.5 picogram 27.0-33.0 MEAN CELL HGB CONCETRATION (test code=MCHC) 33.1 gram/dL 33.0-36.0 RED CELL DISTRIBUTION WIDTH (test code=RDW) 17.2 % 11.6-16.2 RED CELL DISTRIBUTION WIDTH SD (test code=RDW-SD) 53.7 fL 37.0-51.0 PLATELET COUNT (test code=PLT) 214 K/mm3 150-450 MEAN PLATELET VOLUME (test code=MPV) 12.0 fL 6.7-11.0 NEUTROPHIL % (test code=NT%) 70.4 % 39.0-69.0 IMMATURE GRANULOCYTE % (test code=IG%) 1.7 % 0.0-5.0 LYMPHOCYTE % (test code=LY%) 13.0 % 25.0-55.0 MONOCYTE % (test code=MO%) 12.6 % 0.0-10.0 EOSINOPHIL % (test code=EO%) 2.1 % 0.0-5.0 BASOPHIL % (test code=BA%) 0.2 % 0.0-1.0 NUCLEATED RBC % (test code=NRBC%) 2.3 % 0-0 NEUTROPHIL # (test code=NT#) 12.64 K/mm3 1.8-7.7 IMMATURE GRANULOCYTE # (test code=IG#) 0.30 x10 3/uL 0-0.03 LYMPHOCYTE # (test code=LY#) 2.33 K/mm3 1.0-5.0 MONOCYTE # (test code=MO#) 2.27 K/mm3 0-0.8 EOSINOPHIL # (test code=EO#) 0.38 K/mm3 0.0-0.5 BASOPHIL # (test code=BA#) 0.03 K/mm3 0.0-0.2 NUCLEATED RBC # (test code=NRBC#) 0.42 K/mm3 0.0-0.1 MANUAL DIFF REQUIRED (test code=MDIFF) DIFF NEEDED STAIN ACCEPTABILITY (test code=STN ACCEPTABLE) STAIN ACCEPTABLE TOTAL CELLS COUNTED (test code=TCC) 115 #CELLS SEGMENTED NEUTROPHILS (test code=SEG) 73.2 % 39-69 BAND NEUTROPHIL (test code=BAND) 0 % 0-10 LYMPHOCYTE (test code=LYMPH) 17.0 % 25-55 REACTIVE LYMPH (test code=RELYMPH) 0 % MONOCYTE (test code=MON) 7.1 % 0-10 EOSINOPHIL (test code=EOS) 2.7 % 0.0-5.0 BASOPHIL (test code=BASO) 0 % 0-1.0 METAMYELOCYTE (test code=META) 0 % 0-0 MYELOCYTE (test code=MYELO) 0 % 0.0-0.0 PROMYELOCYTE (test code=PROM) 0 % 0-0 POLYCHROMASIA (test code=POLC) 1+ POIKILOCYTOSIS (test code=POIK) 1+ ANISOCYTOSIS (test code=ANISO) 1+ MACROCYTOSIS (test code=MACR) 1+ OVALOCYTES (test code=OVAL) 1+ MORPHOLOGY COMMENT (test code=MOC) TEST NOT PERFORMED PLATELET ESTIMATE (test code=PLTEST) ADEQUATE PLATELET MORPHOLOGY (test code=PLTMORPH) NORMAL IMMATURE FORMS (test code=IMMAT) 0 % 0-0 BASIC METABOLIC [id number] 06:07:00* Test Item Value Reference Range Comments SODIUM (test code=NA) 132 mmol/L 136-145 POTASSIUM (test code=K) 3.4 mmol/L 3.5-5.1 CHLORIDE (test code=CL) 99.0 mmol/L 98-107 CARBON DIOXIDE (test code=CO2) mmol/L 21-32 ANION GAP (test code=GAP) 10-20 GLUCOSE (test code=GLU) mg/dL 74-106 BLOOD UREA NITROGEN (test code=BUN) mg/dL 7-18 GLOMERULAR FILTRATION RATE (test code=GFR) mL/min >=60 CREATININE (test code=CREAT) mg/dL 0.7-1.3 BUN/CREATININE RATIO (test code=BUN/CREA) 10-20 CALCIUM (test code=CA) mg/dL 8.5-10.1 FE W/TOTAL IRON BINDING CAP.2019-09-10 06:07:00* Test Item Value Reference Range Comments SERUM IRON (test code=IRON) ug/dL 50-175 TOTAL IRON BINDING CAPACITY (test code=TIBC) mcg/dL 250-450 IRON SATURATION (test code=FESAT) % 13-45 [id number] 06:07:00* Test Item Value Reference Range Comments FERRITIN (test code=SILVIA) ng/mL 8-388 CBC W/MANUAL [id number] 05:51:00* Test Item Value Reference Range Comments WHITE BLOOD CELL (test code=WBC) 18.0 K/mm3 4.5-12.5 RED BLOOD CELL (test code=RBC) 3.32 mill/mm3 4.0-5.8 HEMOGLOBIN (test code=HGB) 9.8 gram/dL 13.0-17.5 HEMATOCRIT (test code=HCT) 29.6 % 42.0-52.0 MEAN CELL VOLUME (test code=MCV) 89.2 fL 80-98 MEAN CELL HGB (test code=MCH) 29.5 picogram 27.0-33.0 MEAN CELL HGB CONCETRATION (test code=MCHC) 33.1 gram/dL 33.0-36.0 RED CELL DISTRIBUTION WIDTH (test code=RDW) 17.2 % 11.6-16.2 RED CELL DISTRIBUTION WIDTH SD (test code=RDW-SD) 53.7 fL 37.0-51.0 PLATELET COUNT (test code=PLT) 214 K/mm3 150-450 MEAN PLATELET VOLUME (test code=MPV) 12.0 fL 6.7-11.0 NEUTROPHIL % (test code=NT%) 70.4 % 39.0-69.0 IMMATURE GRANULOCYTE % (test code=IG%) 1.7 % 0.0-5.0 LYMPHOCYTE % (test code=LY%) 13.0 % 25.0-55.0 MONOCYTE % (test code=MO%) 12.6 % 0.0-10.0 EOSINOPHIL % (test code=EO%) 2.1 % 0.0-5.0 BASOPHIL % (test code=BA%) 0.2 % 0.0-1.0 NUCLEATED RBC % (test code=NRBC%) 2.3 % 0-0 NEUTROPHIL # (test code=NT#) 12.64 K/mm3 1.8-7.7 IMMATURE GRANULOCYTE # (test code=IG#) 0.30 x10 3/uL 0-0.03 LYMPHOCYTE # (test code=LY#) 2.33 K/mm3 1.0-5.0 MONOCYTE # (test code=MO#) 2.27 K/mm3 0-0.8 EOSINOPHIL # (test code=EO#) 0.38 K/mm3 0.0-0.5 BASOPHIL # (test code=BA#) 0.03 K/mm3 0.0-0.2 NUCLEATED RBC # (test code=NRBC#) 0.42 K/mm3 0.0-0.1 MANUAL DIFF REQUIRED (test code=MDIFF) DIFF NEEDED STAIN ACCEPTABILITY (test code=STN ACCEPTABLE) TOTAL CELLS COUNTED (test code=TCC) #CELLS SEGMENTED NEUTROPHILS (test code=SEG) % 39-69 LYMPHOCYTE (test code=LYMPH) % 25-55 MONOCYTE (test code=MON) % 0-10 EOSINOPHIL (test code=EOS) % 0.0-5.0 CABOT RINGS (test code=CAB) MORPHOLOGY COMMENT (test code=MOC) PLATELET ESTIMATE (test code=PLTEST) PLATELET MORPHOLOGY (test code=PLTMORPH) CBC W/MANUAL [id number] 05:51:00* Test Item Value Reference Range Comments WHITE BLOOD CELL (test code=WBC) 18.0 K/mm3 4.5-12.5 RED BLOOD CELL (test code=RBC) 3.32 mill/mm3 4.0-5.8 HEMOGLOBIN (test code=HGB) 9.8 gram/dL 13.0-17.5 HEMATOCRIT (test code=HCT) 29.6 % 42.0-52.0 MEAN CELL VOLUME (test code=MCV) 89.2 fL 80-98 MEAN CELL HGB (test code=MCH) 29.5 picogram 27.0-33.0 MEAN CELL HGB CONCETRATION (test code=MCHC) 33.1 gram/dL 33.0-36.0 RED CELL DISTRIBUTION WIDTH (test code=RDW) 17.2 % 11.6-16.2 RED CELL DISTRIBUTION WIDTH SD (test code=RDW-SD) 53.7 fL 37.0-51.0 PLATELET COUNT (test code=PLT) 214 K/mm3 150-450 MEAN PLATELET VOLUME (test code=MPV) 12.0 fL 6.7-11.0 NEUTROPHIL % (test code=NT%) 70.4 % 39.0-69.0 IMMATURE GRANULOCYTE % (test code=IG%) 1.7 % 0.0-5.0 LYMPHOCYTE % (test code=LY%) 13.0 % 25.0-55.0 MONOCYTE % (test code=MO%) 12.6 % 0.0-10.0 EOSINOPHIL % (test code=EO%) 2.1 % 0.0-5.0 BASOPHIL % (test code=BA%) 0.2 % 0.0-1.0 NUCLEATED RBC % (test code=NRBC%) 2.3 % 0-0 NEUTROPHIL # (test code=NT#) 12.64 K/mm3 1.8-7.7 IMMATURE GRANULOCYTE # (test code=IG#) 0.30 x10 3/uL 0-0.03 LYMPHOCYTE # (test code=LY#) 2.33 K/mm3 1.0-5.0 MONOCYTE # (test code=MO#) 2.27 K/mm3 0-0.8 EOSINOPHIL # (test code=EO#) 0.38 K/mm3 0.0-0.5 BASOPHIL # (test code=BA#) 0.03 K/mm3 0.0-0.2 NUCLEATED RBC # (test code=NRBC#) 0.42 K/mm3 0.0-0.1 MANUAL DIFF REQUIRED (test code=MDIFF) DIFF NEEDED STAIN ACCEPTABILITY (test code=STN ACCEPTABLE) TOTAL CELLS COUNTED (test code=TCC) #CELLS SEGMENTED NEUTROPHILS (test code=SEG) % 39-69 LYMPHOCYTE (test code=LYMPH) % 25-55 MONOCYTE (test code=MON) % 0-10 EOSINOPHIL (test code=EOS) % 0.0-5.0 CABOT RINGS (test code=CAB) MORPHOLOGY COMMENT (test code=MOC) PLATELET ESTIMATE (test code=PLTEST) PLATELET MORPHOLOGY (test code=PLTMORPH) CBC W/MANUAL [id number] 05:51:00* Test Item Value Reference Range Comments WHITE BLOOD CELL (test code=WBC) 18.0 K/mm3 4.5-12.5 RED BLOOD CELL (test code=RBC) 3.32 mill/mm3 4.0-5.8 HEMOGLOBIN (test code=HGB) 9.8 gram/dL 13.0-17.5 HEMATOCRIT (test code=HCT) 29.6 % 42.0-52.0 MEAN CELL VOLUME (test code=MCV) 89.2 fL 80-98 MEAN CELL HGB (test code=MCH) 29.5 picogram 27.0-33.0 MEAN CELL HGB CONCETRATION (test code=MCHC) 33.1 gram/dL 33.0-36.0 RED CELL DISTRIBUTION WIDTH (test code=RDW) 17.2 % 11.6-16.2 RED CELL DISTRIBUTION WIDTH SD (test code=RDW-SD) 53.7 fL 37.0-51.0 PLATELET COUNT (test code=PLT) 214 K/mm3 150-450 MEAN PLATELET VOLUME (test code=MPV) 12.0 fL 6.7-11.0 NEUTROPHIL % (test code=NT%) 70.4 % 39.0-69.0 IMMATURE GRANULOCYTE % (test code=IG%) 1.7 % 0.0-5.0 LYMPHOCYTE % (test code=LY%) 13.0 % 25.0-55.0 MONOCYTE % (test code=MO%) 12.6 % 0.0-10.0 EOSINOPHIL % (test code=EO%) 2.1 % 0.0-5.0 BASOPHIL % (test code=BA%) 0.2 % 0.0-1.0 NUCLEATED RBC % (test code=NRBC%) 2.3 % 0-0 NEUTROPHIL # (test code=NT#) 12.64 K/mm3 1.8-7.7 IMMATURE GRANULOCYTE # (test code=IG#) 0.30 x10 3/uL 0-0.03 LYMPHOCYTE # (test code=LY#) 2.33 K/mm3 1.0-5.0 MONOCYTE # (test code=MO#) 2.27 K/mm3 0-0.8 EOSINOPHIL # (test code=EO#) 0.38 K/mm3 0.0-0.5 BASOPHIL # (test code=BA#) 0.03 K/mm3 0.0-0.2 NUCLEATED RBC # (test code=NRBC#) 0.42 K/mm3 0.0-0.1 MANUAL DIFF REQUIRED (test code=MDIFF) DIFF NEEDED STAIN ACCEPTABILITY (test code=STN ACCEPTABLE) TOTAL CELLS COUNTED (test code=TCC) #CELLS SEGMENTED NEUTROPHILS (test code=SEG) % 39-69 LYMPHOCYTE (test code=LYMPH) % 25-55 MONOCYTE (test code=MON) % 0-10 EOSINOPHIL (test code=EOS) % 0.0-5.0 MORPHOLOGY COMMENT (test code=MOC) PLATELET ESTIMATE (test code=PLTEST) PLATELET MORPHOLOGY (test code=PLTMORPH) CBC W/MANUAL [id number] 05:51:00* Test Item Value Reference Range Comments WHITE BLOOD CELL (test code=WBC) 18.0 K/mm3 4.5-12.5 RED BLOOD CELL (test code=RBC) 3.32 mill/mm3 4.0-5.8 HEMOGLOBIN (test code=HGB) 9.8 gram/dL 13.0-17.5 HEMATOCRIT (test code=HCT) 29.6 % 42.0-52.0 MEAN CELL VOLUME (test code=MCV) 89.2 fL 80-98 MEAN CELL HGB (test code=MCH) 29.5 picogram 27.0-33.0 MEAN CELL HGB CONCETRATION (test code=MCHC) 33.1 gram/dL 33.0-36.0 RED CELL DISTRIBUTION WIDTH (test code=RDW) 17.2 % 11.6-16.2 RED CELL DISTRIBUTION WIDTH SD (test code=RDW-SD) 53.7 fL 37.0-51.0 PLATELET COUNT (test code=PLT) 214 K/mm3 150-450 MEAN PLATELET VOLUME (test code=MPV) 12.0 fL 6.7-11.0 NEUTROPHIL % (test code=NT%) 70.4 % 39.0-69.0 IMMATURE GRANULOCYTE % (test code=IG%) 1.7 % 0.0-5.0 LYMPHOCYTE % (test code=LY%) 13.0 % 25.0-55.0 MONOCYTE % (test code=MO%) 12.6 % 0.0-10.0 EOSINOPHIL % (test code=EO%) 2.1 % 0.0-5.0 BASOPHIL % (test code=BA%) 0.2 % 0.0-1.0 NUCLEATED RBC % (test code=NRBC%) 2.3 % 0-0 NEUTROPHIL # (test code=NT#) 12.64 K/mm3 1.8-7.7 IMMATURE GRANULOCYTE # (test code=IG#) 0.30 x10 3/uL 0-0.03 LYMPHOCYTE # (test code=LY#) 2.33 K/mm3 1.0-5.0 MONOCYTE # (test code=MO#) 2.27 K/mm3 0-0.8 EOSINOPHIL # (test code=EO#) 0.38 K/mm3 0.0-0.5 BASOPHIL # (test code=BA#) 0.03 K/mm3 0.0-0.2 NUCLEATED RBC # (test code=NRBC#) 0.42 K/mm3 0.0-0.1 MANUAL DIFF REQUIRED (test code=MDIFF) DIFF NEEDED STAIN ACCEPTABILITY (test code=STN ACCEPTABLE) TOTAL CELLS COUNTED (test code=TCC) #CELLS SEGMENTED NEUTROPHILS (test code=SEG) % 39-69 LYMPHOCYTE (test code=LYMPH) % 25-55 MONOCYTE (test code=MON) % 0-10 MORPHOLOGY COMMENT (test code=MOC) PLATELET ESTIMATE (test code=PLTEST) PLATELET MORPHOLOGY (test code=PLTMORPH) CBC W/MANUAL [id number] 05:51:00* Test Item Value Reference Range Comments WHITE BLOOD CELL (test code=WBC) 18.0 K/mm3 4.5-12.5 RED BLOOD CELL (test code=RBC) 3.32 mill/mm3 4.0-5.8 HEMOGLOBIN (test code=HGB) 9.8 gram/dL 13.0-17.5 HEMATOCRIT (test code=HCT) 29.6 % 42.0-52.0 MEAN CELL VOLUME (test code=MCV) 89.2 fL 80-98 MEAN CELL HGB (test code=MCH) 29.5 picogram 27.0-33.0 MEAN CELL HGB CONCETRATION (test code=MCHC) 33.1 gram/dL 33.0-36.0 RED CELL DISTRIBUTION WIDTH (test code=RDW) 17.2 % 11.6-16.2 RED CELL DISTRIBUTION WIDTH SD (test code=RDW-SD) 53.7 fL 37.0-51.0 PLATELET COUNT (test code=PLT) 214 K/mm3 150-450 MEAN PLATELET VOLUME (test code=MPV) 12.0 fL 6.7-11.0 NEUTROPHIL % (test code=NT%) 70.4 % 39.0-69.0 IMMATURE GRANULOCYTE % (test code=IG%) 1.7 % 0.0-5.0 LYMPHOCYTE % (test code=LY%) 13.0 % 25.0-55.0 MONOCYTE % (test code=MO%) 12.6 % 0.0-10.0 EOSINOPHIL % (test code=EO%) 2.1 % 0.0-5.0 BASOPHIL % (test code=BA%) 0.2 % 0.0-1.0 NUCLEATED RBC % (test code=NRBC%) 2.3 % 0-0 NEUTROPHIL # (test code=NT#) 12.64 K/mm3 1.8-7.7 IMMATURE GRANULOCYTE # (test code=IG#) 0.30 x10 3/uL 0-0.03 LYMPHOCYTE # (test code=LY#) 2.33 K/mm3 1.0-5.0 MONOCYTE # (test code=MO#) 2.27 K/mm3 0-0.8 EOSINOPHIL # (test code=EO#) 0.38 K/mm3 0.0-0.5 BASOPHIL # (test code=BA#) 0.03 K/mm3 0.0-0.2 NUCLEATED RBC # (test code=NRBC#) 0.42 K/mm3 0.0-0.1 MANUAL DIFF REQUIRED (test code=MDIFF) DIFF NEEDED STAIN ACCEPTABILITY (test code=STN ACCEPTABLE) TOTAL CELLS COUNTED (test code=TCC) #CELLS SEGMENTED NEUTROPHILS (test code=SEG) % 39-69 LYMPHOCYTE (test code=LYMPH) % 25-55 MONOCYTE (test code=MON) % 0-10 EOSINOPHIL (test code=EOS) % 0.0-5.0 CABOT RINGS (test code=CAB) MORPHOLOGY COMMENT (test code=MOC) PLATELET ESTIMATE (test code=PLTEST) PLATELET MORPHOLOGY (test code=PLTMORPH) [id number] 05:48:00* Test Item Value Reference Range Comments GLUBED (test code=GLUBED) 77 mg/dL 74-106 Performed by certified dog food shredder operator at [facility] [id number] 20:55:00* Test Item Value Reference Range Comments GLUBED (test code=GLUBED) 138 mg/dL 74-106 Performed by certified dog food shredder operator at [facility] [id number] 16:34:00* Test Item Value Reference Range Comments GLUBED (test code=GLUBED) 199 mg/dL 74-106 Performed by certified dog food shredder operator at [facility] [id number] 16:34:00* Test Item Value Reference Range Comments GLUBED (test code=GLUBED) 171 mg/dL 74-106 Performed by certified dog food shredder operator at [facility] BASIC METABOLIC [id number] 07:30:00* Test Item Value Reference Range Comments SODIUM (test code=NA) 131 mmol/L 136-145 POTASSIUM (test code=K) 3.8 mmol/L 3.5-5.1 CHLORIDE (test code=CL) 99.0 mmol/L 98-107 CARBON DIOXIDE (test code=CO2) 20.0 mmol/L 21-32 ANION GAP (test code=GAP) 15.8 10-20 GLUCOSE (test code=GLU) 175 mg/dL 74-106 BLOOD UREA NITROGEN (test code=BUN) 108 mg/dL 7-18 GLOMERULAR FILTRATION RATE (test code=GFR) 16 mL/min >=60 Estimated GFR by using Modified MDRD formula.Chronic kidney disease is defined as either kidney damageor GFR <60 mL/min/1.73 m2 for >3 months. CREATININE (test code=CREAT) 3.80 mg/dL 0.7-1.3 BUN/CREATININE RATIO (test code=BUN/CREA) 28.4 10-20 CALCIUM (test code=CA) 8.4 mg/dL 8.5-10.1 CBC W/AUTO [id number] 07:22:00* Test Item Value Reference Range Comments WHITE BLOOD CELL (test code=WBC) 14.3 K/mm3 4.5-12.5 RED BLOOD CELL (test code=RBC) 3.10 mill/mm3 4.0-5.8 HEMOGLOBIN (test code=HGB) 9.2 gram/dL 13.0-17.5 HEMATOCRIT (test code=HCT) 28.4 % 42.0-52.0 MEAN CELL VOLUME (test code=MCV) 91.6 fL 80-98 MEAN CELL HGB (test code=MCH) 29.7 picogram 27.0-33.0 MEAN CELL HGB CONCETRATION (test code=MCHC) 32.4 gram/dL 33.0-36.0 RED CELL DISTRIBUTION WIDTH (test code=RDW) 17.2 % 11.6-16.2 RED CELL DISTRIBUTION WIDTH SD (test code=RDW-SD) 55.6 fL 37.0-51.0 PLATELET COUNT (test code=PLT) 200 K/mm3 150-450 MEAN PLATELET VOLUME (test code=MPV) 12.3 fL 6.7-11.0 NEUTROPHIL % (test code=NT%) 75.8 % 39.0-69.0 IMMATURE GRANULOCYTE % (test code=IG%) 1.0 % 0.0-5.0 LYMPHOCYTE % (test code=LY%) 11.3 % 25.0-55.0 MONOCYTE % (test code=MO%) 11.3 % 0.0-10.0 EOSINOPHIL % (test code=EO%) 0.5 % 0.0-5.0 BASOPHIL % (test code=BA%) 0.1 % 0.0-1.0 NUCLEATED RBC % (test code=NRBC%) 2.9 % 0-0 NEUTROPHIL # (test code=NT#) 10.81 K/mm3 1.8-7.7 IMMATURE GRANULOCYTE # (test code=IG#) 0.15 x10 3/uL 0-0.03 LYMPHOCYTE # (test code=LY#) 1.62 K/mm3 1.0-5.0 MONOCYTE # (test code=MO#) 1.62 K/mm3 0-0.8 EOSINOPHIL # (test code=EO#) 0.07 K/mm3 0.0-0.5 BASOPHIL # (test code=BA#) 0.02 K/mm3 0.0-0.2 NUCLEATED RBC # (test code=NRBC#) 0.41 K/mm3 0.0-0.1 MANUAL DIFF REQUIRED (test code=MDIFF) NO BASIC METABOLIC [id number] 07:22:00* Test Item Value Reference Range Comments SODIUM (test code=NA) 131 mmol/L 136-145 POTASSIUM (test code=K) 3.8 mmol/L 3.5-5.1 CHLORIDE (test code=CL) 99.0 mmol/L 98-107 CARBON DIOXIDE (test code=CO2) mmol/L 21-32 ANION GAP (test code=GAP) 10-20 GLUCOSE (test code=GLU) mg/dL 74-106 BLOOD UREA NITROGEN (test code=BUN) mg/dL 7-18 GLOMERULAR FILTRATION RATE (test code=GFR) mL/min >=60 CREATININE (test code=CREAT) mg/dL 0.7-1.3 BUN/CREATININE RATIO (test code=BUN/CREA) 10-20 CALCIUM (test code=CA) mg/dL 8.5-10.1 [id number] 05:09:00* Test Item Value Reference Range Comments GLUBED (test code=GLUBED) 187 mg/dL 74-106 Performed by certified dog food shredder operator at [facility] [id number] 21:04:00* Test Item Value Reference Range Comments GLUBED (test code=GLUBED) 216 mg/dL 74-106 Performed by certified dog food shredder operator at [facility] [id number] 17:29:00* Test Item Value Reference Range Comments GLUBED (test code=GLUBED) 235 mg/dL 74-106 Performed by certified dog food shredder operator at [facility] [id number] 12:37:00* Test Item Value Reference Range Comments GLUBED (test code=GLUBED) 294 mg/dL 74-106 Performed by certified dog food shredder operator at [facility] BASIC METABOLIC [id number] 12:36:00* Test Item Value Reference Range Comments SODIUM (test code=NA) 131 mmol/L 136-145 POTASSIUM (test code=K) 4.2 mmol/L 3.5-5.1 CHLORIDE (test code=CL) 100.0 mmol/L 98-107 CARBON DIOXIDE (test code=CO2) 18.0 mmol/L 21-32 ANION GAP (test code=GAP) 17.2 10-20 GLUCOSE (test code=GLU) 343 mg/dL 74-106 BLOOD UREA NITROGEN (test code=BUN) 104 mg/dL 7-18 GLOMERULAR FILTRATION RATE (test code=GFR) 14 mL/min >=60 Estimated GFR by using Modified MDRD formula.Chronic kidney disease is defined as either kidney damageor GFR <60 mL/min/1.73 m2 for >3 months. CREATININE (test code=CREAT) 4.20 mg/dL 0.7-1.3 BUN/CREATININE RATIO (test code=BUN/CREA) 24.8 10-20 CALCIUM (test code=CA) 8.4 mg/dL 8.5-10.1 PT IS A HARD STICK NURSE WILLY IS AWARE ([id number]) V.LAB.09/08/19 0945 BASIC METABOLIC [id number] 12:31:00* Test Item Value Reference Range Comments SODIUM (test code=NA) 131 mmol/L 136-145 POTASSIUM (test code=K) 4.2 mmol/L 3.5-5.1 CHLORIDE (test code=CL) 100.0 mmol/L 98-107 CARBON DIOXIDE (test code=CO2) mmol/L 21-32 ANION GAP (test code=GAP) 10-20 GLUCOSE (test code=GLU) mg/dL 74-106 BLOOD UREA NITROGEN (test code=BUN) mg/dL 7-18 GLOMERULAR FILTRATION RATE (test code=GFR) mL/min >=60 CREATININE (test code=CREAT) mg/dL 0.7-1.3 BUN/CREATININE RATIO (test code=BUN/CREA) 10-20 CALCIUM (test code=CA) mg/dL 8.5-10.1 PT IS A HARD STICK NURSE WILLY IS AWARE ([id number]) V.LAB.09/08/19 0945 GLUBED 2019-09-08 05:38:00* Test Item Value Reference Range Comments GLUBED (test code=GLUBED) 265 mg/dL 74-106 Performed by certified dog food shredder operator at [facility] [id number] 21:00:00* Test Item Value Reference Range Comments GLUBED (test code=GLUBED) 348 mg/dL 74-106 Performed by certified dog food shredder operator at [facility] [id number] 16:54:00* Test Item Value Reference Range Comments GLUBED (test code=GLUBED) 343 mg/dL 74-106 Performed by certified dog food shredder operator at [facility] [id number] 12:19:00* Test Item Value Reference Range Comments GLUBED (test code=GLUBED) 245 mg/dL 74-106 Performed by certified dog food shredder operator at [facility] [id number] 06:05:00* Test Item Value Reference Range Comments GLUBED (test code=GLUBED) 220 mg/dL 74-106 Performed by certified dog food shredder operator at [facility] BASIC METABOLIC [id number] 05:35:00* Test Item Value Reference Range Comments SODIUM (test code=NA) 137 mmol/L 136-145 POTASSIUM (test code=K) 4.4 mmol/L 3.5-5.1 CHLORIDE (test code=CL) 105.0 mmol/L 98-107 CARBON DIOXIDE (test code=CO2) 20.0 mmol/L 21-32 ANION GAP (test code=GAP) 16.4 10-20 GLUCOSE (test code=GLU) 209 mg/dL 74-106 BLOOD UREA NITROGEN (test code=BUN) 89 mg/dL 7-18 GLOMERULAR FILTRATION RATE (test code=GFR) 19 mL/min >=60 Estimated GFR by using Modified MDRD formula.Chronic kidney disease is defined as either kidney damageor GFR <60 mL/min/1.73 m2 for >3 months. CREATININE (test code=CREAT) 3.20 mg/dL 0.7-1.3 BUN/CREATININE RATIO (test code=BUN/CREA) 27.8 10-20 CALCIUM (test code=CA) 8.6 mg/dL 8.5-10.1 BASIC METABOLIC [id number] 05:23:00* Test Item Value Reference Range Comments SODIUM (test code=NA) 137 mmol/L 136-145 POTASSIUM (test code=K) 4.4 mmol/L 3.5-5.1 CHLORIDE (test code=CL) 105.0 mmol/L 98-107 CARBON DIOXIDE (test code=CO2) mmol/L 21-32 ANION GAP (test code=GAP) 10-20 GLUCOSE (test code=GLU) mg/dL 74-106 BLOOD UREA NITROGEN (test code=BUN) mg/dL 7-18 GLOMERULAR FILTRATION RATE (test code=GFR) mL/min >=60 CREATININE (test code=CREAT) mg/dL 0.7-1.3 BUN/CREATININE RATIO (test code=BUN/CREA) 10-20 CALCIUM (test code=CA) mg/dL 8.5-10.1 CBC W/AUTO [id number] 05:00:00* Test Item Value Reference Range Comments WHITE BLOOD CELL (test code=WBC) 9.3 K/mm3 4.5-12.5 RED BLOOD CELL (test code=RBC) 3.35 mill/mm3 4.0-5.8 HEMOGLOBIN (test code=HGB) 10.1 gram/dL 13.0-17.5 RESULT VERIFIED BY REPEAT ANALYSIS HEMATOCRIT (test code=HCT) 30.5 % 42.0-52.0 MEAN CELL VOLUME (test code=MCV) 91.0 fL 80-98 MEAN CELL HGB (test code=MCH) 30.1 picogram 27.0-33.0 MEAN CELL HGB CONCETRATION (test code=MCHC) 33.1 gram/dL 33.0-36.0 RED CELL DISTRIBUTION WIDTH (test code=RDW) 17.7 % 11.6-16.2 RED CELL DISTRIBUTION WIDTH SD (test code=RDW-SD) 55.5 fL 37.0-51.0 PLATELET COUNT (test code=PLT) 226 K/mm3 150-450 MEAN PLATELET VOLUME (test code=MPV) 12.7 fL 6.7-11.0 NEUTROPHIL % (test code=NT%) 87.3 % 39.0-69.0 IMMATURE GRANULOCYTE % (test code=IG%) 1.4 % 0.0-5.0 LYMPHOCYTE % (test code=LY%) 7.6 % 25.0-55.0 MONOCYTE % (test code=MO%) 3.6 % 0.0-10.0 EOSINOPHIL % (test code=EO%) 0.0 % 0.0-5.0 BASOPHIL % (test code=BA%) 0.1 % 0.0-1.0 NUCLEATED RBC % (test code=NRBC%) 1.1 % 0-0 RESULT VERIFIED BY REPEAT ANALYSIS NEUTROPHIL # (test code=NT#) 8.15 K/mm3 1.8-7.7 IMMATURE GRANULOCYTE # (test code=IG#) 0.13 x10 3/uL 0-0.03 LYMPHOCYTE # (test code=LY#) 0.71 K/mm3 1.0-5.0 MONOCYTE # (test code=MO#) 0.34 K/mm3 0-0.8 EOSINOPHIL # (test code=EO#) 0.00 K/mm3 0.0-0.5 BASOPHIL # (test code=BA#) 0.01 K/mm3 0.0-0.2 NUCLEATED RBC # (test code=NRBC#) 0.10 K/mm3 0.0-0.1 [id number] 21:13:00* Test Item Value Reference Range Comments GLUBED (test code=GLUBED) 218 mg/dL 74-106 Performed by certified dog food shredder operator at [facility] [id number] 18:12:00* Test Item Value Reference Range Comments GLUBED (test code=GLUBED) 170 mg/dL 74-106 Performed by certified dog food shredder operator at [facility] [id number] 15:12:00* Test Item Value Reference Range Comments GLUBED (test code=GLUBED) 153 mg/dL 74-106 Performed by certified dog food shredder operator at [facility] [id number] 12:11:00* Test Item Value Reference Range Comments GLUBED (test code=GLUBED) 169 mg/dL 74-106 Performed by certified dog food shredder operator at [facility] BASIC METABOLIC [id number] 08:33:00* Test Item Value Reference Range Comments SODIUM (test code=NA) 134 mmol/L 136-145 POTASSIUM (test code=K) 3.6 mmol/L 3.5-5.1 CHLORIDE (test code=CL) 102.0 mmol/L 98-107 CARBON DIOXIDE (test code=CO2) 22.0 mmol/L 21-32 ANION GAP (test code=GAP) 13.6 10-20 GLUCOSE (test code=GLU) 204 mg/dL 74-106 BLOOD UREA NITROGEN (test code=BUN) 90 mg/dL 7-18 GLOMERULAR FILTRATION RATE (test code=GFR) 20 mL/min >=60 Estimated GFR by using Modified MDRD formula.Chronic kidney disease is defined as either kidney damageor GFR <60 mL/min/1.73 m2 for >3 months. CREATININE (test code=CREAT) 3.10 mg/dL 0.7-1.3 BUN/CREATININE RATIO (test code=BUN/CREA) 29.0 10-20 CALCIUM (test code=CA) 8.7 mg/dL 8.5-10.1 CBC W/AUTO [id number] 08:27:00* Test Item Value Reference Range Comments WHITE BLOOD CELL (test code=WBC) 15.7 K/mm3 4.5-12.5 RED BLOOD CELL (test code=RBC) 2.49 mill/mm3 4.0-5.8 HEMOGLOBIN (test code=HGB) 7.6 gram/dL 13.0-17.5 HEMATOCRIT (test code=HCT) 23.6 % 42.0-52.0 MEAN CELL VOLUME (test code=MCV) 94.8 fL 80-98 MEAN CELL HGB (test code=MCH) 30.5 picogram 27.0-33.0 MEAN CELL HGB CONCETRATION (test code=MCHC) 32.2 gram/dL 33.0-36.0 RED CELL DISTRIBUTION WIDTH (test code=RDW) 17.9 % 11.6-16.2 RED CELL DISTRIBUTION WIDTH SD (test code=RDW-SD) 58.3 fL 37.0-51.0 PLATELET COUNT (test code=PLT) 242 K/mm3 150-450 MEAN PLATELET VOLUME (test code=MPV) 12.5 fL 6.7-11.0 NEUTROPHIL % (test code=NT%) 77.1 % 39.0-69.0 IMMATURE GRANULOCYTE % (test code=IG%) 1.1 % 0.0-5.0 LYMPHOCYTE % (test code=LY%) 9.2 % 25.0-55.0 MONOCYTE % (test code=MO%) 11.6 % 0.0-10.0 EOSINOPHIL % (test code=EO%) 0.6 % 0.0-5.0 BASOPHIL % (test code=BA%) 0.4 % 0.0-1.0 NUCLEATED RBC % (test code=NRBC%) 0.7 % 0-0 NEUTROPHIL # (test code=NT#) 12.11 K/mm3 1.8-7.7 IMMATURE GRANULOCYTE # (test code=IG#) 0.18 x10 3/uL 0-0.03 LYMPHOCYTE # (test code=LY#) 1.44 K/mm3 1.0-5.0 MONOCYTE # (test code=MO#) 1.82 K/mm3 0-0.8 EOSINOPHIL # (test code=EO#) 0.09 K/mm3 0.0-0.5 BASOPHIL # (test code=BA#) 0.06 K/mm3 0.0-0.2 NUCLEATED RBC # (test code=NRBC#) 0.11 K/mm3 0.0-0.1 [id number] 07:40:00* Test Item Value Reference Range Comments GLUBED (test code=GLUBED) 218 mg/dL 74-106 Performed by certified dog food shredder operator at [facility] [id number] 20:29:00* Test Item Value Reference Range Comments GLUBED (test code=GLUBED) 188 mg/dL 74-106 Performed by certified dog food shredder operator at [facility] [id number] 16:52:00* Test Item Value Reference Range Comments GLUBED (test code=GLUBED) 138 mg/dL 74-106 Performed by certified dog food shredder operator at [facility] [id number] 11:46:00* Test Item Value Reference Range Comments GLUBED (test code=GLUBED) 167 mg/dL 74-106 Performed by certified dog food shredder operator at [facility] BASIC METABOLIC [id number] 11:26:00* Test Item Value Reference Range Comments SODIUM (test code=NA) 134 mmol/L 136-145 POTASSIUM (test code=K) 3.5 mmol/L 3.5-5.1 CHLORIDE (test code=CL) 101.0 mmol/L 98-107 CARBON DIOXIDE (test code=CO2) 25.0 mmol/L 21-32 ANION GAP (test code=GAP) 11.5 10-20 GLUCOSE (test code=GLU) 190 mg/dL 74-106 BLOOD UREA NITROGEN (test code=BUN) 89 mg/dL 7-18 GLOMERULAR FILTRATION RATE (test code=GFR) 19 mL/min >=60 Estimated GFR by using Modified MDRD formula.Chronic kidney disease is defined as either kidney damageor GFR <60 mL/min/1.73 m2 for >3 months. CREATININE (test code=CREAT) 3.20 mg/dL 0.7-1.3 BUN/CREATININE RATIO (test code=BUN/CREA) 27.8 10-20 CALCIUM (test code=CA) 8.1 mg/dL 8.5-10.1 BASIC METABOLIC [id number] 11:23:00* Test Item Value Reference Range Comments SODIUM (test code=NA) 134 mmol/L 136-145 POTASSIUM (test code=K) 3.5 mmol/L 3.5-5.1 CHLORIDE (test code=CL) 101.0 mmol/L 98-107 CARBON DIOXIDE (test code=CO2) mmol/L 21-32 ANION GAP (test code=GAP) 10-20 GLUCOSE (test code=GLU) mg/dL 74-106 BLOOD UREA NITROGEN (test code=BUN) mg/dL 7-18 GLOMERULAR FILTRATION RATE (test code=GFR) mL/min >=60 CREATININE (test code=CREAT) mg/dL 0.7-1.3 BUN/CREATININE RATIO (test code=BUN/CREA) 10-20 CALCIUM (test code=CA) 8.1 mg/dL 8.5-10.1 [id number] 08:47:00* Test Item Value Reference Range Comments GLUBED (test code=GLUBED) 156 mg/dL 74-106 Performed by certified dog food shredder operator at [facility] [id number] 20:37:00* Test Item Value Reference Range Comments GLUBED (test code=GLUBED) 164 mg/dL 74-106 Performed by certified dog food shredder operator at [facility] [id number] 17:15:00* Test Item Value Reference Range Comments GLUBED (test code=GLUBED) 197 mg/dL 74-106 Performed by certified dog food shredder operator at [facility] [id number] 12:18:00* Test Item Value Reference Range Comments GLUBED (test code=GLUBED) 237 mg/dL 74-106 Performed by certified dog food shredder operator at [facility] BASIC METABOLIC [id number] 10:21:00* Test Item Value Reference Range Comments SODIUM (test code=NA) 133 mmol/L 136-145 POTASSIUM (test code=K) 3.7 mmol/L 3.5-5.1 CHLORIDE (test code=CL) 100.0 mmol/L 98-107 CARBON DIOXIDE (test code=CO2) 24.0 mmol/L 21-32 ANION GAP (test code=GAP) 12.7 10-20 GLUCOSE (test code=GLU) 173 mg/dL 74-106 BLOOD UREA NITROGEN (test code=BUN) 78 mg/dL 7-18 GLOMERULAR FILTRATION RATE (test code=GFR) 17 mL/min >=60 Estimated GFR by using Modified MDRD formula.Chronic kidney disease is defined as either kidney damageor GFR <60 mL/min/1.73 m2 for >3 months. CREATININE (test code=CREAT) 3.50 mg/dL 0.7-1.3 BUN/CREATININE RATIO (test code=BUN/CREA) 22.3 10-20 CALCIUM (test code=CA) 8.5 mg/dL 8.5-10.1 BASIC METABOLIC [id number] 10:17:00* Test Item Value Reference Range Comments SODIUM (test code=NA) 133 mmol/L 136-145 POTASSIUM (test code=K) 3.7 mmol/L 3.5-5.1 CHLORIDE (test code=CL) 100.0 mmol/L 98-107 CARBON DIOXIDE (test code=CO2) mmol/L 21-32 ANION GAP (test code=GAP) 10-20 GLUCOSE (test code=GLU) mg/dL 74-106 BLOOD UREA NITROGEN (test code=BUN) mg/dL 7-18 GLOMERULAR FILTRATION RATE (test code=GFR) mL/min >=60 CREATININE (test code=CREAT) mg/dL 0.7-1.3 BUN/CREATININE RATIO (test code=BUN/CREA) 10-20 CALCIUM (test code=CA) mg/dL 8.5-10.1 CBC W/AUTO [id number] 09:46:00* Test Item Value Reference Range Comments WHITE BLOOD CELL (test code=WBC) 16.5 K/mm3 4.5-12.5 RED BLOOD CELL (test code=RBC) 2.38 mill/mm3 4.0-5.8 HEMOGLOBIN (test code=HGB) 7.3 gram/dL 13.0-17.5 HEMATOCRIT (test code=HCT) 22.3 % 42.0-52.0 MEAN CELL VOLUME (test code=MCV) 93.7 fL 80-98 MEAN CELL HGB (test code=MCH) 30.7 picogram 27.0-33.0 MEAN CELL HGB CONCETRATION (test code=MCHC) 32.7 gram/dL 33.0-36.0 RED CELL DISTRIBUTION WIDTH (test code=RDW) 17.1 % 11.6-16.2 RED CELL DISTRIBUTION WIDTH SD (test code=RDW-SD) 56.0 fL 37.0-51.0 PLATELET COUNT (test code=PLT) 194 K/mm3 150-450 MEAN PLATELET VOLUME (test code=MPV) 12.2 fL 6.7-11.0 NEUTROPHIL % (test code=NT%) 74.0 % 39.0-69.0 IMMATURE GRANULOCYTE % (test code=IG%) 1.0 % 0.0-5.0 LYMPHOCYTE % (test code=LY%) 10.9 % 25.0-55.0 MONOCYTE % (test code=MO%) 11.7 % 0.0-10.0 EOSINOPHIL % (test code=EO%) 2.1 % 0.0-5.0 BASOPHIL % (test code=BA%) 0.3 % 0.0-1.0 NUCLEATED RBC % (test code=NRBC%) 0.2 % 0-0 NEUTROPHIL # (test code=NT#) 12.24 K/mm3 1.8-7.7 IMMATURE GRANULOCYTE # (test code=IG#) 0.16 x10 3/uL 0-0.03 LYMPHOCYTE # (test code=LY#) 1.81 K/mm3 1.0-5.0 MONOCYTE # (test code=MO#) 1.93 K/mm3 0-0.8 EOSINOPHIL # (test code=EO#) 0.34 K/mm3 0.0-0.5 BASOPHIL # (test code=BA#) 0.05 K/mm3 0.0-0.2 NUCLEATED RBC # (test code=NRBC#) 0.04 K/mm3 0.0-0.1 [id number] 08:17:00* Test Item Value Reference Range Comments GLUBED (test code=GLUBED) 154 mg/dL 74-106 Performed by certified dog food shredder operator at [facility] [id number] 20:57:00* Test Item Value Reference Range Comments GLUBED (test code=GLUBED) 214 mg/dL 74-106 Performed by certified dog food shredder operator at [facility] [id number] 15:50:00* Test Item Value Reference Range Comments GLUBED (test code=GLUBED) 180 mg/dL 74-106 Performed by certified dog food shredder operator at [facility] - US RETRO [id number] 14:58:00 Name: TRACI ZAMORA [facility] : 1940 Age/S: 78 / M [address] Unit #: [id number] Loc: [place] [address] Phys: Jt Low MD Acct: [id number] Dis Date: Status: ADM IN PHONE #: [phone] Exam Date: 09/03/2019 1230 FAX #: [phone] Reason: ОЛЬГА EXAMS: CPT CODE: [id number] US RETRO LTD [id number] REASON FOR EXAM: ОЛЬГА EXAM ORDER DATE: 09/03/2019 10:35 AM Attending M.D.: Jt Low MD PROCEDURE: - US RETRO LTD Comparison: CT of the abdomen and pelvis August 30, 2019 FINDINGS: Right kidney: parenchyma echogenicity: Normal echogenicity size: 10.2 x 4.6 x 4.4 cm. stones: none cysts/masses: none hydronephrosis: none Left kidney: parenchyma echogenicity: Normal echogenicity size: 10.8 x 4.5 x 4.4 cm. stones: none cysts/masses: Simple cyst measures up to 3.4 cm in size. This is likely benign and does not warrant further evaluation. hydronephrosis: none Urinary Bladder: Intraluminal masses/debris: Christopher balloon is present Wall thickness: Normal Outpouching: None IMPRESSION: Simple cortical cysts in the left kidney is likely benign. Otherwise sonographically unremarkable kidneys. Location: [facility] at 1458 Reported and signed by: Jez Lake MD PAGE 1 Signed Report (CONTINUED) Name: TRACI ZAMORA [facility] : 1940 Age/S: 78 / M [address] Unit #: [id number] Loc: [place] [address] Phys: Jt Low MD Acct: [id number] Dis Date: Status: ADM IN PHONE #: [phone] Exam Date: 09/03/2019 1230 FAX #: [phone] Reason: ОЛЬГА EXAMS: CPT CODE: [id number] [facility] [address] <Continued> CC: Taurus Stevenson; Jt Low MD; Parveen Sandoval Technologist: Sharri Kidd RDMS Trnflb Date/Time: 09/03/2019 (6525) [email or web address] Orig Print D/T: S: 09/03/2019 (3110) Probe: PAGE 2 Signed Report [id number] 11:56:00* Test Item Value Reference Range Comments GLUBED (test code=GLUBED) 212 mg/dL 74-106 Performed by certified dog food shredder operator at [facility] BASIC METABOLIC [id number] 10:05:00* Test Item Value Reference Range Comments SODIUM (test code=NA) 133 mmol/L 136-145 POTASSIUM (test code=K) 4.1 mmol/L 3.5-5.1 CHLORIDE (test code=CL) 98.0 mmol/L 98-107 CARBON DIOXIDE (test code=CO2) 24.0 mmol/L 21-32 ANION GAP (test code=GAP) 15.1 10-20 GLUCOSE (test code=GLU) 225 mg/dL 74-106 BLOOD UREA NITROGEN (test code=BUN) 76 mg/dL 7-18 RESULT VERIFIED BY REPEAT ANALYSIS GLOMERULAR FILTRATION RATE (test code=GFR) 14 mL/min >=60 Estimated GFR by using Modified MDRD formula.Chronic kidney disease is defined as either kidney damageor GFR <60 mL/min/1.73 m2 for >3 months. CREATININE (test code=CREAT) 4.10 mg/dL 0.7-1.3 BUN/CREATININE RATIO (test code=BUN/CREA) 18.5 10-20 CALCIUM (test code=CA) 8.5 mg/dL 8.5-10.1 BASIC METABOLIC [id number] 09:52:00* Test Item Value Reference Range Comments SODIUM (test code=NA) 133 mmol/L 136-145 POTASSIUM (test code=K) 4.1 mmol/L 3.5-5.1 CHLORIDE (test code=CL) 98.0 mmol/L 98-107 CARBON DIOXIDE (test code=CO2) mmol/L 21-32 ANION GAP (test code=GAP) 10-20 GLUCOSE (test code=GLU) mg/dL 74-106 BLOOD UREA NITROGEN (test code=BUN) mg/dL 7-18 GLOMERULAR FILTRATION RATE (test code=GFR) mL/min >=60 CREATININE (test code=CREAT) mg/dL 0.7-1.3 BUN/CREATININE RATIO (test code=BUN/CREA) 10-20 CALCIUM (test code=CA) mg/dL 8.5-10.1 CBC W/AUTO [id number] 09:18:00* Test Item Value Reference Range Comments WHITE BLOOD CELL (test code=WBC) 17.8 K/mm3 4.5-12.5 RED BLOOD CELL (test code=RBC) 2.46 mill/mm3 4.0-5.8 HEMOGLOBIN (test code=HGB) 7.5 gram/dL 13.0-17.5 HEMATOCRIT (test code=HCT) 22.6 % 42.0-52.0 MEAN CELL VOLUME (test code=MCV) 91.9 fL 80-98 MEAN CELL HGB (test code=MCH) 30.5 picogram 27.0-33.0 MEAN CELL HGB CONCETRATION (test code=MCHC) 33.2 gram/dL 33.0-36.0 RED CELL DISTRIBUTION WIDTH (test code=RDW) 16.7 % 11.6-16.2 RED CELL DISTRIBUTION WIDTH SD (test code=RDW-SD) 54.7 fL 37.0-51.0 PLATELET COUNT (test code=PLT) 189 K/mm3 150-450 MEAN PLATELET VOLUME (test code=MPV) 12.5 fL 6.7-11.0 NEUTROPHIL % (test code=NT%) 69.0 % 39.0-69.0 IMMATURE GRANULOCYTE % (test code=IG%) 0.9 % 0.0-5.0 LYMPHOCYTE % (test code=LY%) 17.6 % 25.0-55.0 MONOCYTE % (test code=MO%) 10.5 % 0.0-10.0 EOSINOPHIL % (test code=EO%) 1.5 % 0.0-5.0 BASOPHIL % (test code=BA%) 0.5 % 0.0-1.0 NUCLEATED RBC % (test code=NRBC%) 0.2 % 0-0 NEUTROPHIL # (test code=NT#) 12.28 K/mm3 1.8-7.7 IMMATURE GRANULOCYTE # (test code=IG#) 0.16 x10 3/uL 0-0.03 LYMPHOCYTE # (test code=LY#) 3.12 K/mm3 1.0-5.0 MONOCYTE # (test code=MO#) 1.87 K/mm3 0-0.8 EOSINOPHIL # (test code=EO#) 0.26 K/mm3 0.0-0.5 BASOPHIL # (test code=BA#) 0.08 K/mm3 0.0-0.2 NUCLEATED RBC # (test code=NRBC#) 0.03 K/mm3 0.0-0.1 MANUAL DIFF REQUIRED (test code=MDIFF) NO [id number] 08:48:00* Test Item Value Reference Range Comments GLUBED (test code=GLUBED) 222 mg/dL 74-106 Performed by certified dog food shredder operator at [facility] HGB [id number] 01:58:00* Test Item Value Reference Range Comments HEMOGLOBIN (test code=HGB) 8.4 gram/dL 13.0-17.5 HEMATOCRIT (test code=HCT) 25.6 % 42.0-52.0 [id number] 21:32:00* Test Item Value Reference Range Comments GLUBED (test code=GLUBED) 263 mg/dL 74-106 Performed by certified dog food shredder operator at [facility] HGB [id number] 19:14:00* Test Item Value Reference Range Comments HEMOGLOBIN (test code=HGB) 8.9 gram/dL 13.0-17.5 HEMATOCRIT (test code=HCT) 26.6 % 42.0-52.0 [id number] 18:47:00* Test Item Value Reference Range Comments GLUBED (test code=GLUBED) 260 mg/dL 74-106 Performed by certified dog food shredder operator at [facility] URINALYSIS [id number] 14:21:00* Test Item Value Reference Range Comments UA COLOR (test code=COLU) BLOODY YELLOW UA APPEARANCE (test code=APPU) BLOODY CLEAR UA GLUCOSE DIPSTICK (test code=DGLUU) INTER. SUBSTANCE mg/dL NEGATIVE UA BILIRUBIN DIPSTICK (test code=BILU) INTERFERING SUBST. NEGATIVE UA KETONE DIPSTICK (test code=KETU) INTERFERING SUBST. mg/dL NEGATIVE UA SPECIFIC GRAVITY (test code=SGU) INTER. SUBSTANCE 1.001-1.035 UA BLOOD DIPSTICK (test code=TIFF) 3+ (Large) NEGATIVE UA PH DIPSTICK (test code=CRISTOFER) INTER. SUBSTANCE 5.0-8.0 UA PROTEIN DIPSTICK (test code=PROU) INTERFERING SUBST. mg/dL Neg-15 UA UROBILINIOGEN DIPSTICK (test code=URO) INTERFERING SUBST. mg/dL 0.0-0.2 UA NITRITE DIPSTICK (test code=GENET) INTERFERING SUBST. NEGATIVE UA LEUKOCYTE ESTERASE W REFLEX (test code=LEUUR) INTERFERING SUBST NEGATIVE UA WBC (test code=WBCU) >100 per HPF 0-5 UA RBC (test code=RBCU) TNTC per HPF 0-5 UA EPITHELIAL CELLS (test code=EPIU) None seen per HPF Few UA BACTERIA (test code=BACU) FEW per HPF NONE Urine Source? CatheterURINALYSIS [id number] 14:19:00* Test Item Value Reference Range Comments UA COLOR (test code=COLU) BLOODY YELLOW UA APPEARANCE (test code=APPU) BLOODY CLEAR UA GLUCOSE DIPSTICK (test code=DGLUU) INTER. SUBSTANCE mg/dL NEGATIVE UA BILIRUBIN DIPSTICK (test code=BILU) INTERFERING SUBST. NEGATIVE UA KETONE DIPSTICK (test code=KETU) INTERFERING SUBST. mg/dL NEGATIVE UA SPECIFIC GRAVITY (test code=SGU) INTER. SUBSTANCE 1.001-1.035 UA BLOOD DIPSTICK (test code=TIFF) 3+ (Large) NEGATIVE UA PH DIPSTICK (test code=CRISTOFER) INTER. SUBSTANCE 5.0-8.0 UA PROTEIN DIPSTICK (test code=PROU) INTERFERING SUBST. mg/dL Neg-15 UA UROBILINIOGEN DIPSTICK (test code=URO) INTERFERING SUBST. mg/dL 0.0-0.2 UA NITRITE DIPSTICK (test code=GENET) INTERFERING SUBST. NEGATIVE UA LEUKOCYTE ESTERASE W REFLEX (test code=LEUUR) INTERFERING SUBST NEGATIVE UA WBC (test code=WBCU) per HPF 0-5 UA RBC (test code=RBCU) per HPF 0-5 UA EPITHELIAL CELLS (test code=EPIU) per HPF Few UA BACTERIA (test code=BACU) per HPF NONE Urine Source? CatheterBASIC METABOLIC [id number] 10:18:00* Test Item Value Reference Range Comments SODIUM (test code=NA) 134 mmol/L 136-145 POTASSIUM (test code=K) 3.5 mmol/L 3.5-5.1 CHLORIDE (test code=CL) 98.0 mmol/L 98-107 CARBON DIOXIDE (test code=CO2) 26.0 mmol/L 21-32 ANION GAP (test code=GAP) 13.5 10-20 GLUCOSE (test code=GLU) 229 mg/dL 74-106 BLOOD UREA NITROGEN (test code=BUN) 63 mg/dL 7-18 GLOMERULAR FILTRATION RATE (test code=GFR) 18 mL/min >=60 Estimated GFR by using Modified MDRD formula.Chronic kidney disease is defined as either kidney damageor GFR <60 mL/min/1.73 m2 for >3 months. CREATININE (test code=CREAT) 3.40 mg/dL 0.7-1.3 BUN/CREATININE RATIO (test code=BUN/CREA) 18.5 10-20 CALCIUM (test code=CA) 8.8 mg/dL 8.5-10.1 PROTHROMBIN [id number] 10:09:00* Test Item Value Reference Range Comments PROTHROMBIN TIME PATIENT (test code=PTP) 20.1 seconds 9.0-14.0 INTERNATIONAL NORMAL RATIO (test code=INR) 1.7 0.8-1.2 The therapeutic range for oral anticoagulant therapy formost indications is an international normalized ratio (INR)of between 2.0 and 3.0. The recommended therapeutic INRrange for various clinical situations is listed below: Clinical Situation INR range Pulmonary e mbolism treatment (2.0-3.0)Venous thrombosis treatmentVenous thrombosis prophylaxis (high risk surgery)Prevention of systemic embolism from: Acute myocardial infarction Valvular heart disease Atrial fibrillation Mechanical prosthetic heart valves (2.5-3.5) IS PATIENT ON ANTICOAGULANTS? YLIST ANTICOAGULANTS xareltoTHROMBOPLASTIN TIME [id number] 10:09:00* Test Item Value Reference Range Comments THROMBOPLASTIN TIME PARTIAL (test code=PTT) 33.0 seconds 25.0-36.5 IS PATIENT ON ANTICOAGULANTS? YLIST ANTICOAGULANTS xareltoCBC W/AUTO DIFF 2019-09-02 10:08:00* Test Item Value Reference Range Comments WHITE BLOOD CELL (test code=WBC) 12.8 K/mm3 4.5-12.5 RED BLOOD CELL (test code=RBC) 3.02 mill/mm3 4.0-5.8 HEMOGLOBIN (test code=HGB) 9.1 gram/dL 13.0-17.5 HEMATOCRIT (test code=HCT) 27.4 % 42.0-52.0 MEAN CELL VOLUME (test code=MCV) 90.7 fL 80-98 MEAN CELL HGB (test code=MCH) 30.1 picogram 27.0-33.0 MEAN CELL HGB CONCETRATION (test code=MCHC) 33.2 gram/dL 33.0-36.0 RED CELL DISTRIBUTION WIDTH (test code=RDW) 16.8 % 11.6-16.2 RED CELL DISTRIBUTION WIDTH SD (test code=RDW-SD) 55.5 fL 37.0-51.0 PLATELET COUNT (test code=PLT) 206 K/mm3 150-450 MEAN PLATELET VOLUME (test code=MPV) 12.1 fL 6.7-11.0 NEUTROPHIL % (test code=NT%) 74.9 % 39.0-69.0 IMMATURE GRANULOCYTE % (test code=IG%) 0.8 % 0.0-5.0 LYMPHOCYTE % (test code=LY%) 13.4 % 25.0-55.0 MONOCYTE % (test code=MO%) 9.5 % 0.0-10.0 EOSINOPHIL % (test code=EO%) 1.1 % 0.0-5.0 BASOPHIL % (test code=BA%) 0.3 % 0.0-1.0 NUCLEATED RBC % (test code=NRBC%) 0.0 % 0-0 NEUTROPHIL # (test code=NT#) 9.58 K/mm3 1.8-7.7 IMMATURE GRANULOCYTE # (test code=IG#) 0.10 x10 3/uL 0-0.03 LYMPHOCYTE # (test code=LY#) 1.71 K/mm3 1.0-5.0 MONOCYTE # (test code=MO#) 1.22 K/mm3 0-0.8 EOSINOPHIL # (test code=EO#) 0.14 K/mm3 0.0-0.5 BASOPHIL # (test code=BA#) 0.04 K/mm3 0.0-0.2 NUCLEATED RBC # (test code=NRBC#) 0.00 K/mm3 0.0-0.1 MANUAL DIFF REQUIRED (test code=MDIFF) NO URINALYSIS [id number] 05:32:00* Test Item Value Reference Range Comments UA COLOR (test code=COLU) RED YELLOW UA APPEARANCE (test code=APPU) TURBID CLEAR UA GLUCOSE DIPSTICK (test code=DGLUU) 30 (Trace) mg/dL NEGATIVE UA BILIRUBIN DIPSTICK (test code=BILU) NEGATIVE mg/dL NEGATIVE UA KETONE DIPSTICK (test code=KETU) NEGATIVE mg/dL NEGATIVE UA SPECIFIC GRAVITY (test code=SGU) 1.009 1.001-1.035 UA BLOOD DIPSTICK (test code=TIFF) >1.0 mg/dL NEGATIVE UA PH DIPSTICK (test code=CRISTOFER) 6.5 5.0-8.0 UA PROTEIN DIPSTICK (test code=PROU) 200 (2+) mg/dL NEGATIVE UA UROBILINIOGEN DIPSTICK (test code=URO) Normal mg/dL NEGATIVE UA NITRITE DIPSTICK (test code=GENET) NEGATIVE NEGATIVE UA LEUKOCYTE ESTERASE W REFLEX (test code=LEUUR) 75 Isael/uL (1+) Isael/uL NEGATIVE UA WBC (test code=WBCU) 5-10 per HPF 0-5 UA RBC (test code=RBCU) >200 #/HPF 0-5 UA EPITHELIAL CELLS (test code=EPIU) None seen per HPF FEW UA BACTERIA (test code=BACU) NONE SEEN #/HPF NONE Urine Source? Clean CatchBASIC METABOLIC [id number] 18:13:00* Test Item Value Reference Range Comments SODIUM (test code=NA) 136 mmol/L 136-145 POTASSIUM (test code=K) 3.7 mmol/L 3.5-5.1 CHLORIDE (test code=CL) 102.0 mmol/L 98-107 CARBON DIOXIDE (test code=CO2) 27.0 mmol/L 21-32 ANION GAP (test code=GAP) 10.7 10-20 GLUCOSE (test code=GLU) 266 mg/dL 74-106 BLOOD UREA NITROGEN (test code=BUN) 45 mg/dL 7-18 GLOMERULAR FILTRATION RATE (test code=GFR) 24 mL/min >=60 Estimated GFR by using Modified MDRD formula.Chronic kidney disease is defined as either kidney damageor GFR <60 mL/min/1.73 m2 for >3 months. CREATININE (test code=CREAT) 2.60 mg/dL 0.7-1.3 BUN/CREATININE RATIO (test code=BUN/CREA) 17.3 10-20 CALCIUM (test code=CA) 8.6 mg/dL 8.5-10.1 CBC W/AUTO [id number] 17:48:00* Test Item Value Reference Range Comments WHITE BLOOD CELL (test code=WBC) 9.9 K/mm3 4.5-12.5 RED BLOOD CELL (test code=RBC) 3.50 mill/mm3 4.0-5.8 HEMOGLOBIN (test code=HGB) 10.5 gram/dL 13.0-17.5 HEMATOCRIT (test code=HCT) 32.2 % 42.0-52.0 MEAN CELL VOLUME (test code=MCV) 92.0 fL 80-98 MEAN CELL HGB (test code=MCH) 30.0 picogram 27.0-33.0 MEAN CELL HGB CONCETRATION (test code=MCHC) 32.6 gram/dL 33.0-36.0 RED CELL DISTRIBUTION WIDTH (test code=RDW) 16.5 % 11.6-16.2 RED CELL DISTRIBUTION WIDTH SD (test code=RDW-SD) 54.7 fL 37.0-51.0 PLATELET COUNT (test code=PLT) 192 K/mm3 150-450 MEAN PLATELET VOLUME (test code=MPV) 11.4 fL 6.7-11.0 NEUTROPHIL % (test code=NT%) 68.7 % 39.0-69.0 IMMATURE GRANULOCYTE % (test code=IG%) 0.6 % 0.0-5.0 LYMPHOCYTE % (test code=LY%) 16.6 % 25.0-55.0 MONOCYTE % (test code=MO%) 10.9 % 0.0-10.0 EOSINOPHIL % (test code=EO%) 2.8 % 0.0-5.0 BASOPHIL % (test code=BA%) 0.4 % 0.0-1.0 NUCLEATED RBC % (test code=NRBC%) 0.0 % 0-0 NEUTROPHIL # (test code=NT#) 6.77 K/mm3 1.8-7.7 IMMATURE GRANULOCYTE # (test code=IG#) 0.06 x10 3/uL 0-0.03 LYMPHOCYTE # (test code=LY#) 1.64 K/mm3 1.0-5.0 MONOCYTE # (test code=MO#) 1.07 K/mm3 0-0.8 EOSINOPHIL # (test code=EO#) 0.28 K/mm3 0.0-0.5 BASOPHIL # (test code=BA#) 0.04 K/mm3 0.0-0.2 NUCLEATED RBC # (test code=NRBC#) 0.00 K/mm3 0.0-0.1 URINALYSIS [id number] 17:41:00* Test Item Value Reference Range Comments UA COLOR (test code=COLU) BLOODY YELLOW UA APPEARANCE (test code=APPU) CLOUDY CLEAR UA GLUCOSE DIPSTICK (test code=DGLUU) 70-100 (1+) mg/dL NEGATIVE UA BILIRUBIN DIPSTICK (test code=BILU) NEGATIVE NEGATIVE UA KETONE DIPSTICK (test code=KETU) 2+ mg/dL NEGATIVE UA SPECIFIC GRAVITY (test code=SGU) 1.010 1.001-1.035 UA BLOOD DIPSTICK (test code=TIFF) 3+ (Large) NEGATIVE UA PH DIPSTICK (test code=CRISTOFER) 7.0 5.0-8.0 UA PROTEIN DIPSTICK (test code=PROU) >=300 (3+) mg/dL Neg-15 UA UROBILINIOGEN DIPSTICK (test code=URO) >=8.0 mg/dL 0.0-0.2 UA NITRITE DIPSTICK (test code=GENET) POSITIVE NEGATIVE UA LEUKOCYTE ESTERASE W REFLEX (test code=LEUUR) 3+ NEGATIVE UA WBC (test code=WBCU) 0-5 per HPF 0-5 UA RBC (test code=RBCU) TNTC per HPF 0-5 UA EPITHELIAL CELLS (test code=EPIU) None seen per HPF Few UA BACTERIA (test code=BACU) TRACE per HPF NONE Urine Source? Clean CatchURINALYSIS [id number] 17:26:00* Test Item Value Reference Range Comments UA COLOR (test code=COLU) BLOODY YELLOW UA APPEARANCE (test code=APPU) CLOUDY CLEAR UA GLUCOSE DIPSTICK (test code=DGLUU) 70-100 (1+) mg/dL NEGATIVE UA BILIRUBIN DIPSTICK (test code=BILU) NEGATIVE NEGATIVE UA KETONE DIPSTICK (test code=KETU) 2+ mg/dL NEGATIVE UA SPECIFIC GRAVITY (test code=SGU) 1.010 1.001-1.035 UA BLOOD DIPSTICK (test code=TIFF) 3+ (Large) NEGATIVE UA PH DIPSTICK (test code=CRISTOFER) 7.0 5.0-8.0 UA PROTEIN DIPSTICK (test code=PROU) >=300 (3+) mg/dL Neg-15 UA UROBILINIOGEN DIPSTICK (test code=URO) >=8.0 mg/dL 0.0-0.2 UA NITRITE DIPSTICK (test code=GENET) POSITIVE NEGATIVE UA LEUKOCYTE ESTERASE W REFLEX (test code=LEUUR) 3+ NEGATIVE UA WBC (test code=WBCU) per HPF 0-5 UA RBC (test code=RBCU) per HPF 0-5 UA EPITHELIAL CELLS (test code=EPIU) per HPF Few UA BACTERIA (test code=BACU) per HPF NONE Urine Source? Clean Catch- CT ABD PELVIS W/O [id number] 18:50:00 Name: TRACI ZAMORA [facility] : 1940 Age/S: 78 / M [address] Unit #: [id number] [place]: [place] [address] Phys: Fernando Gardiner DO Acct: [id number] Dis Date: Status: REG ER PHONE #: Exam Date: 08/30/2019 1755 FAX #: [phone] Reason: hematuria EXAMS: CPT CODE: [id number] CT ABD PELVIS W/O CONT [id number] EXAM: CT of the abdomen a nd pelvis without contrast; INFORMATION: Hematuria; TECHNIQUE AND FINDINGS: CT dose reduction protocol; 5 mm cuts throug h the abdomen and pelvis without contrast; renal stone protocol; The kidneys of normal size and shape. There is a 3 cm cyst along the posterior aspect of the midportion of the left kidney. There is no evidence of renal or ureteral stones; no evidence of hydronephrosis or hydroureters. No evidence of bladder stones but small amount of dense material in the bladder floor consistent with blood. Liver, previously system, spleen, ferrera creas and adrenal glands are unremarkable. No acute bowel abnormalit ies. No pelvic mass lesions. There is a fat-containing periumbilical hernia. There is stranding within subcutaneous tissues in the lower anter ior abdominal wall. This may be secondary to subcutaneous injections. Calcified plaques in the abdominal aorta and the iliac arteries. Lung ba ses are clear. IMPRESSION: 1. No evidence of renal or ur eteral stones or of obstructive uropathy. 2. Left renal cyst. 3. Small amount of blood on the bladder floor; the cause is not clear. 4. Fat-containing periumbilical hernia. Location code: [facility] at 1850 Reported and signed by: John Harrell M.D. CC: Taurus Stevenson; Fernando Gardiner DO Technologist:RT WOODY(R) CT CTDI: DLP: Trnscb Date/Time: 08/30/2019 (1849) Rick Orig Print D/T: S: 08/30/2019 (1852) PAGE 1 Signed Report URINALYSIS [id number] 17:38:00* Test Item Value Reference Range Comments UA COLOR (test code=COLU) BLOODY YELLOW UA APPEARANCE (test code=APPU) BLOODY CLEAR UA GLUCOSE DIPSTICK (test code=DGLUU) TRACE mg/dL NEGATIVE UA BILIRUBIN DIPSTICK (test code=BILU) NEGATIVE NEGATIVE UA KETONE DIPSTICK (test code=KETU) NEGATIVE mg/dL NEGATIVE UA SPECIFIC GRAVITY (test code=SGU) 1.020 1.001-1.035 UA BLOOD DIPSTICK (test code=TIFF) 3+ (Large) NEGATIVE UA PH DIPSTICK (test code=CRISTOFER) 6.5 5.0-8.0 UA PROTEIN DIPSTICK (test code=PROU) >=300 (3+) mg/dL Neg-15 UA UROBILINIOGEN DIPSTICK (test code=URO) 0.2 mg/dL 0.0-0.2 UA NITRITE DIPSTICK (test code=GENET) NEGATIVE NEGATIVE UA LEUKOCYTE ESTERASE W REFLEX (test code=LEUUR) NEGATIVE NEGATIVE UA WBC (test code=WBCU) 6-10 per HPF 0-5 UA RBC (test code=RBCU) TNTC per HPF 0-5 UA EPITHELIAL CELLS (test code=EPIU) Few (2-5/hpf) per HPF Few UA BACTERIA (test code=BACU) FEW per HPF NONE UA MUCUS (test code=MUCU) FEW per LPF NONE-FEW Urine Source? Clean CatchURINALYSIS [id number] 17:31:00* Test Item Value Reference Range Comments UA COLOR (test code=COLU) BLOODY YELLOW UA APPEARANCE (test code=APPU) BLOODY CLEAR UA GLUCOSE DIPSTICK (test code=DGLUU) TRACE mg/dL NEGATIVE UA BILIRUBIN DIPSTICK (test code=BILU) NEGATIVE NEGATIVE UA KETONE DIPSTICK (test code=KETU) NEGATIVE mg/dL NEGATIVE UA SPECIFIC GRAVITY (test code=SGU) 1.020 1.001-1.035 UA BLOOD DIPSTICK (test code=TIFF) 3+ (Large) NEGATIVE UA PH DIPSTICK (test code=CRISTOFER) 6.5 5.0-8.0 UA PROTEIN DIPSTICK (test code=PROU) >=300 (3+) mg/dL Neg-15 UA UROBILINIOGEN DIPSTICK (test code=URO) 0.2 mg/dL 0.0-0.2 UA NITRITE DIPSTICK (test code=GENET) NEGATIVE NEGATIVE UA LEUKOCYTE ESTERASE W REFLEX (test code=LEUUR) NEGATIVE NEGATIVE UA WBC (test code=WBCU) per HPF 0-5 UA RBC (test code=RBCU) per HPF 0-5 UA EPITHELIAL CELLS (test code=EPIU) per HPF Few UA BACTERIA (test code=BACU) per HPF NONE Urine Source? Clean CatchBASIC METABOLIC [id number] 17:30:00* Test Item Value Reference Range Comments SODIUM (test code=NA) 138 mmol/L 136-145 POTASSIUM (test code=K) 4.0 mmol/L 3.5-5.1 CHLORIDE (test code=CL) 103.0 mmol/L 98-107 CARBON DIOXIDE (test code=CO2) 29.0 mmol/L 21-32 ANION GAP (test code=GAP) 10.0 10-20 GLUCOSE (test code=GLU) 119 mg/dL 74-106 BLOOD UREA NITROGEN (test code=BUN) 45 mg/dL 7-18 GLOMERULAR FILTRATION RATE (test code=GFR) 24 mL/min >=60 Estimated GFR by using Modified MDRD formula.Chronic kidney disease is defined as either kidney damageor GFR <60 mL/min/1.73 m2 for >3 months. CREATININE (test code=CREAT) 2.60 mg/dL 0.7-1.3 BUN/CREATININE RATIO (test code=BUN/CREA) 17.3 10-20 CALCIUM (test code=CA) 8.5 mg/dL 8.5-10.1 BASIC METABOLIC [id number] 17:23:00* Test Item Value Reference Range Comments SODIUM (test code=NA) 138 mmol/L 136-145 POTASSIUM (test code=K) 4.0 mmol/L 3.5-5.1 CHLORIDE (test code=CL) 103.0 mmol/L 98-107 CARBON DIOXIDE (test code=CO2) mmol/L 21-32 ANION GAP (test code=GAP) 10-20 GLUCOSE (test code=GLU) mg/dL 74-106 BLOOD UREA NITROGEN (test code=BUN) mg/dL 7-18 GLOMERULAR FILTRATION RATE (test code=GFR) mL/min >=60 CREATININE (test code=CREAT) mg/dL 0.7-1.3 BUN/CREATININE RATIO (test code=BUN/CREA) 10-20 CALCIUM (test code=CA) 8.5 mg/dL 8.5-10.1 CBC W/O [id number] 17:16:00* Test Item Value Reference Range Comments WHITE BLOOD CELL (test code=WBC) 11.2 K/mm3 4.5-12.5 RED BLOOD CELL (test code=RBC) 3.63 mill/mm3 4.0-5.8 HEMOGLOBIN (test code=HGB) 10.9 gram/dL 13.0-17.5 HEMATOCRIT (test code=HCT) 33.3 % 42.0-52.0 MEAN CELL VOLUME (test code=MCV) 91.7 fL 80-98 MEAN CELL HGB (test code=MCH) 30.0 picogram 27.0-33.0 MEAN CELL HGB CONCETRATION (test code=MCHC) 32.7 gram/dL 33.0-36.0 RED CELL DISTRIBUTION WIDTH (test code=RDW) 16.5 % 11.6-16.2 PLATELET COUNT (test code=PLT) 212 K/mm3 150-450 MEAN PLATELET VOLUME (test code=MPV) 11.8 fL 6.7-11.0 - CT CHEST W/O [id number] 07:47:00 Name: TRACI ZAMORA [facility] : 1940 Age/S: 78 / M [address] [facility] #: [id number] Loc: [place] [address] Phys: Leonora Cook MD Acct: [id number] Dis Date: Status: REG CLI PHONE #: [phone] Exam Date: 07/22/2019 07 FAX #: [phone] Reason: COUGH EXAMS: CPT CODE: [id number] CT CHEST W/O CONTRAST 68626 HISTORY: Cough. COMPARISON: CT chest from October 17, 2018. CT chest without contrast: Automated exposure control. Location: TH. The lungs are clear of infiltrates, effusion or congestion. No bronchiectasis, honeycombing or fibrosis or endobronchial lesions. No parenchymal mass or nodules. Nodular scar in the right lower lobe is unchanged from previous exam. Unremarkable normal caliber atherosclerotic aorta and pulmonary arteries. Thyroid glands are poorly visible. Esophageal wall is not thickened. No pathologic adenopathy. Moderate cardiomegaly without pericardial effusion. Visualized upper abdomen is unremarkable. Subcutaneous tissues and the musculature are normal with left ICD with the leads in the right atrium and right ventricle. No lytic or blastic lesions are noted within the bony skeleton. DJD. IMPRESSION: No acute infiltrates, effusion or congestion. Nodular scar in the right lower lobe is unchanged in subpleural location. No mass or nod ules. No bronchiectasis, honeycombing or fibrosis. No pathologic adeno gladis. at 0 747 Reported and signed by: Guru Hirsch M.D. CC: Leonora Cook MD; Taurus Stevenson Technologist:Alicia Turner,RT(R),CT CTDI: DLP: Trnscb Date/Time: 07/22/2019 (0747) t.SDR.TH4 Orig Print D/T: S: 07/22/2019 (0751) PAGE 1 Signed Report BASIC METABOLIC [id number] 06:55:00* Test Item Value Reference Range Comments SODIUM (test code=NA) 140 mmol/L 136-145 RESULT VERIFIED BY REPEAT ANALYSIS POTASSIUM (test code=K) 3.4 mmol/L 3.5-5.1 CHLORIDE (test code=CL) 103.0 mmol/L 98-107 CARBON DIOXIDE (test code=CO2) 25.0 mmol/L 21-32 ANION GAP (test code=GAP) 15.4 10-20 GLUCOSE (test code=GLU) 126 mg/dL 74-106 BLOOD UREA NITROGEN (test code=BUN) 70 mg/dL 7-18 GLOMERULAR FILTRATION RATE (test code=GFR) 24 mL/min >=60 Estimated GFR by using Modified MDRD formula.Chronic kidney disease is defined as either kidney damageor GFR <60 mL/min/1.73 m2 for >3 months. CREATININE (test code=CREAT) 2.60 mg/dL 0.7-1.3 BUN/CREATININE RATIO (test code=BUN/CREA) 27.0 10-20 CALCIUM (test code=CA) 8.7 mg/dL 8.5-10.1 CBC W/AUTO [id number] 06:29:00* Test Item Value Reference Range Comments WHITE BLOOD CELL (test code=WBC) 11.0 K/mm3 4.5-12.5 RED BLOOD CELL (test code=RBC) 4.30 mill/mm3 4.0-5.8 HEMOGLOBIN (test code=HGB) 12.6 gram/dL 13.0-17.5 HEMATOCRIT (test code=HCT) 37.1 % 42.0-52.0 MEAN CELL VOLUME (test code=MCV) 86.3 fL 80-98 MEAN CELL HGB (test code=MCH) 29.3 picogram 27.0-33.0 MEAN CELL HGB CONCETRATION (test code=MCHC) 34.0 gram/dL 33.0-36.0 RED CELL DISTRIBUTION WIDTH (test code=RDW) 15.9 % 11.6-16.2 RED CELL DISTRIBUTION WIDTH SD (test code=RDW-SD) 49.8 fL 37.0-51.0 PLATELET COUNT (test code=PLT) 215 K/mm3 150-450 MEAN PLATELET VOLUME (test code=MPV) 13.2 fL 6.7-11.0 NEUTROPHIL % (test code=NT%) 59.7 % 39.0-69.0 IMMATURE GRANULOCYTE % (test code=IG%) 0.7 % 0.0-5.0 LYMPHOCYTE % (test code=LY%) 23.6 % 25.0-55.0 MONOCYTE % (test code=MO%) 13.9 % 0.0-10.0 EOSINOPHIL % (test code=EO%) 1.6 % 0.0-5.0 BASOPHIL % (test code=BA%) 0.5 % 0.0-1.0 NUCLEATED RBC % (test code=NRBC%) 0.0 % 0-0 NEUTROPHIL # (test code=NT#) 6.55 K/mm3 1.8-7.7 IMMATURE GRANULOCYTE # (test code=IG#) 0.08 x10 3/uL 0-0.03 LYMPHOCYTE # (test code=LY#) 2.59 K/mm3 1.0-5.0 MONOCYTE # (test code=MO#) 1.52 K/mm3 0-0.8 EOSINOPHIL # (test code=EO#) 0.17 K/mm3 0.0-0.5 BASOPHIL # (test code=BA#) 0.05 K/mm3 0.0-0.2 NUCLEATED RBC # (test code=NRBC#) 0.00 K/mm3 0.0-0.1 MANUAL DIFF REQUIRED (test code=MDIFF) NO [id number] 05:55:00* Test Item Value Reference Range Comments GLUBED (test code=GLUBED) 129 mg/dL 74-106 Performed by certified dog food shredder operator at [facility] [id number] 21:41:00* Test Item Value Reference Range Comments GLUBED (test code=GLUBED) 287 mg/dL 74-106 Performed by certified dog food shredder operator at [facility] [id number] 20:16:00* Test Item Value Reference Range Comments TROPONIN-I (test code=TROPI) 0.031 ng/mL 0-0.045 COMMENTS TO GYPSUM ROOFER: COLLECT 3 HOURS AFTER PREVIOUS [id number] 16:33:00* Test Item Value Reference Range Comments GLUBED (test code=GLUBED) 182 mg/dL 74-106 Performed by certified dog food shredder operator at [facility] [id number] 16:11:00* Test Item Value Reference Range Comments TROPONIN-I (test code=TROPI) 0.027 ng/mL 0-0.045 COMMENTS TO GYPSUM ROOFER: COLLECT 3 HOURS AFTER PREVIOUS SAMPLEB-TYPE NATRIURETIC [id number] 12:58:00* Test Item Value Reference Range Comments B-TYPE NATRIURETIC PEPTIDE (test code=BNP) 282.63 pgram/mL 0-100 PROTHROMBIN [id number] 11:18:00* Test Item Value Reference Range Comments PROTHROMBIN TIME PATIENT (test code=PTP) 33.1 seconds 9.0-14.0 RESULT VERIFIED BY REPEAT ANALYSIS INTERNATIONAL NORMAL RATIO (test code=INR) 2.8 0.8-1.2 The therapeutic range for oral anticoagulant therapy formost indications is an international normalized ratio (INR)of between 2.0 and 3.0. The recommended therapeutic INRrange for various clinical situations is listed below: Clinical Situation INR range Pulmonary e mbolism treatment (2.0-3.0)Venous thrombosis treatmentVenous thrombosis prophylaxis (high risk surgery)Prevention of systemic embolism from: Acute myocardial infarction Valvular heart disease Atrial fibrillation Mechanical prosthetic heart valves (2.5-3.5) IS PATIENT ON ANTICOAGULANTS? NTHROMBOPLASTIN TIME [id number] 11:18:00* Test Item Value Reference Range Comments THROMBOPLASTIN TIME PARTIAL (test code=PTT) 42.2 seconds 25.0-36.5 IS PATIENT ON ANTICOAGULANTS? NBASIC METABOLIC [id number] 11:10:00* Test Item Value Reference Range Comments SODIUM (test code=NA) 135 mmol/L 136-145 POTASSIUM (test code=K) 3.3 mmol/L 3.5-5.1 CHLORIDE (test code=CL) 98.0 mmol/L 98-107 CARBON DIOXIDE (test code=CO2) 24.0 mmol/L 21-32 ANION GAP (test code=GAP) 16.3 10-20 GLUCOSE (test code=GLU) 274 mg/dL 74-106 BLOOD UREA NITROGEN (test code=BUN) 66 mg/dL 7-18 GLOMERULAR FILTRATION RATE (test code=GFR) 20 mL/min >=60 Estimated GFR by using Modified MDRD formula.Chronic kidney disease is defined as either kidney damageor GFR <60 mL/min/1.73 m2 for >3 months. CREATININE (test code=CREAT) 3.00 mg/dL 0.7-1.3 BUN/CREATININE RATIO (test code=BUN/CREA) 22.4 10-20 CALCIUM (test code=CA) 8.9 mg/dL 8.5-10.1 [id number] 11:10:00* Test Item Value Reference Range Comments TROPONIN-I (test code=TROPI) 0.019 ng/mL 0-0.045 TROPONIN I [id number] 11:08:00* Test Item Value Reference Range Comments TROPONIN I RAPID (test code=TROPIRAP) 0.00 ng/mL <0.08 Please Note New Reference Range 0.00-0.079 ng/mL - Negative>or=0.08 ng/mL - Positive The use of serial sampling and testing protocol is arecommended practice.An elevated troponin level alone is often not sufficient fordiagnosis of myocardial infarction. Troponin results obtained by different assays may vary.Evaluation of the extent of myocardial damage based onincrease of troponin would be valid only if similarmethodology is used. BASIC METABOLIC [id number] 11:00:00* Test Item Value Reference Range Comments SODIUM (test code=NA) 135 mmol/L 136-145 POTASSIUM (test code=K) 3.3 mmol/L 3.5-5.1 CHLORIDE (test code=CL) 98.0 mmol/L 98-107 CARBON DIOXIDE (test code=CO2) mmol/L 21-32 ANION GAP (test code=GAP) 10-20 GLUCOSE (test code=GLU) mg/dL 74-106 BLOOD UREA NITROGEN (test code=BUN) mg/dL 7-18 GLOMERULAR FILTRATION RATE (test code=GFR) mL/min >=60 CREATININE (test code=CREAT) mg/dL 0.7-1.3 BUN/CREATININE RATIO (test code=BUN/CREA) 10-20 CALCIUM (test code=CA) mg/dL 8.5-10.1 [id number] 11:00:00* Test Item Value Reference Range Comments TROPONIN-I (test code=TROPI) ng/mL 0-0.045 CBC W/O [id number] 10:56:00* Test Item Value Reference Range Comments WHITE BLOOD CELL (test code=WBC) 11.2 K/mm3 4.5-12.5 RED BLOOD CELL (test code=RBC) 4.32 mill/mm3 4.0-5.8 HEMOGLOBIN (test code=HGB) 12.9 gram/dL 13.0-17.5 HEMATOCRIT (test code=HCT) 37.0 % 42.0-52.0 MEAN CELL VOLUME (test code=MCV) 85.6 fL 80-98 MEAN CELL HGB (test code=MCH) 29.9 picogram 27.0-33.0 MEAN CELL HGB CONCETRATION (test code=MCHC) 34.9 gram/dL 33.0-36.0 RED CELL DISTRIBUTION WIDTH (test code=RDW) 15.9 % 11.6-16.2 PLATELET COUNT (test code=PLT) 195 K/mm3 150-450 MEAN PLATELET VOLUME (test code=MPV) 13.0 fL 6.7-11.0 - XR CHEST 1 [id number] 10:35:00 FAX: Taurus Espino MD [phone] [place]: St: REG FAX: Dilcia Gay [phone] Name: TRACI ZAMORA [facility] : 1940 Age/S: 78/M [address] [facility] #: [id number] Loc: [place] [address] Phys: Dilcia Shrestha MD Acct: [id number] Dis Date: Status: REG ER PHONE #: [phone] Exam Date: 05/14/2019 1010 FAX #: [phone] Reason: CHEST PAIN EXAMS: CPT CODE: [id number] XR CHEST 1 V [id number] REASON FOR EXAM: CHEST PAIN Exam Order Date: 05/14/2019 10:01 AM Ordering M.D.: Dilcia Shrestha MD PROCEDURE: - XR CHEST 1 V COMPARISON: Frontal chest x-ray March 12, 2019 FINDINGS: The lungs are clear. There is no pleural effusion or pneumothorax. Pulmonary vascularity is within normal limits. Cardiomediastinal silhouette is enlarged but stable in size. Left subclavian ICD/pacemaker is unchanged. Coronary stent is unchanged in position. Sternotomy wires and other musculoskeletal findings are stable from the prior exam. The visualized upper abdomen is within normal limits. IMPRESSION: No significant change from prior exam. Lungs are clear. Cardiomegaly is unchanged. Location: [facility] at 1035 Reported and signed by: Jez Lake MD CC: Taurus Stevenson; Dilcia Shrestha MD Technologist: SABIHA COHN RT(R) Trnscrd Date/Time/By: 05/14/2019 (1035) : By: ZoraidaRR31 Orig Print D/T: S: 05/14/2019 (8578) PAGE 1 Signed R eport [id number] 12:18:00* Test Item Value Reference Range Comments GLUBED (test code=GLUBED) 267 mg/dL 74-106 Performed by certified dog food shredder operator at [facility] [id number] 08:12:00* Test Item Value Reference Range Comments GLUBED (test code=GLUBED) 195 mg/dL 74-106 Performed by certified dog food shredder operator at [facility] [id number] 16:58:00* Test Item Value Reference Range Comments GLUBED (test code=GLUBED) 251 mg/dL 74-106 Performed by certified dog food shredder operator at [facility] [id number] 12:19:00* Test Item Value Reference Range Comments GLUBED (test code=GLUBED) 261 mg/dL 74-106 Performed by certified dog food shredder operator at [facility] [id number] 08:40:00* Test Item Value Reference Range Comments GLUBED (test code=GLUBED) 156 mg/dL 74-106 Performed by certified dog food shredder operator at [facility] [id number] 20:09:00* Test Item Value Reference Range Comments GLUBED (test code=GLUBED) 182 mg/dL 74-106 Performed by certified dog food shredder operator at [facility] - XR CHEST 1 [id number] 20:03:00 FAX: Taurus Espino MD [phone] [place]: St: [facility] FAX: Zahira Gabriel [phone] Name: TRAIC ZAMORA [facility] : 1940 Age/S: 78/M [address] [facility] #: [id number] Loc: V.40[address] [address] Phys: Zahira Lovett MD Acct: [id number] Dis Date: Status: ADM IN PHONE #: [phone] Exam Date: 03/12/2019 5727 FAX #: [phone] Reason: [id number] EXAMS: CPT CODE: [id number] XR CHEST 1 V 52087 EXAM: Chest x-ray, one view; INFORMATION: Pneumothorax; FINDINGS: Lungs are clear; no infiltrates, no edema; no effusions, no pneumothorax. The heart is enlarged. Both subclavian pacemaker in place. Status post median sternotomy. Aortic calcifications. IMPRESSION: 1. Cardiomegaly. 2. Otherwise, no evidence of active cardiopulmonary disease. Well-positioned left subclavian pacemaker and improvement compared with study from October 17, 2018. at 2002 Reported and signed by: John Harrell M.D. CC: Taurus Stevenson; Zahira Lovett MD Technologist: SABIHA COHN, (R); RAYMUNDO RG Trnflrd Date/Time/By: 03/12/2019 (2002) : By: ZoraidaGRW Orig Print D/T: S: 03/12/2019 (2005) PAGE 1 Signed Report GLUBED 2019-03-12 16:48:00* Test Item Value Reference Range Comments GLUBED (test code=GLUBED) 113 mg/dL 74-106 [facility]~ [id number] 13:40:00* Test Item Value Reference Range Comments GLUBED (test code=GLUBED) 132 mg/dL 74-106 Performed by certified dog food shredder operator at [facility] PROTHROMBIN [id number] 13:31:00* Test Item Value Reference Range Comments PROTHROMBIN TIME PATIENT (test code=PTP) 13.0 seconds 9.0-14.0 INTERNATIONAL NORMAL RATIO (test code=INR) 1.1 0.8-1.2 The therapeutic range for oral anticoagulant therapy formost indications is an international normalized ratio (INR)of between 2.0 and 3.0. The recommended therapeutic INRrange for various clinical situations is listed below: Clinical Situation INR range Pulmonary e mbolism treatment (2.0-3.0)Venous thrombosis treatmentVenous thrombosis prophylaxis (high risk surgery)Prevention of systemic embolism from: Acute myocardial infarction Valvular heart disease Atrial fibrillation Mechanical prosthetic heart valves (2.5-3.5) IS PATIENT ON ANTICOAGULANTS? YLIST ANTICOAGULANTS ASPIRINTHROMBOPLASTIN TIME [id number] 13:31:00* Test Item Value Reference Range Comments THROMBOPLASTIN TIME PARTIAL (test code=PTT) 31.2 seconds 25.0-36.5 IS PATIENT ON ANTICOAGULANTS? YLIST ANTICOAGULANTS ASPIRINBASIC METABOLIC [id number] 12:24:00* Test Item Value Reference Range Comments SODIUM (test code=NA) 140 mmol/L 136-145 POTASSIUM (test code=K) 4.3 mmol/L 3.5-5.1 CHLORIDE (test code=CL) 108.0 mmol/L 98-107 CARBON DIOXIDE (test code=CO2) 24.0 mmol/L 21-32 ANION GAP (test code=GAP) 12.3 10-20 GLUCOSE (test code=GLU) 177 mg/dL 74-106 BLOOD UREA NITROGEN (test code=BUN) 44 mg/dL 7-18 GLOMERULAR FILTRATION RATE (test code=GFR) 29 mL/min >=60 Estimated GFR by using Modified MDRD formula.Chronic kidney disease is defined as either kidney damageor GFR <60 mL/min/1.73 m2 for >3 months. CREATININE (test code=CREAT) 2.20 mg/dL 0.7-1.3 BUN/CREATININE RATIO (test code=BUN/CREA) 20.0 10-20 CALCIUM (test code=CA) 8.6 mg/dL 8.5-10.1 BASIC METABOLIC [id number] 12:21:00* Test Item Value Reference Range Comments SODIUM (test code=NA) 140 mmol/L 136-145 POTASSIUM (test code=K) 4.3 mmol/L 3.5-5.1 CHLORIDE (test code=CL) 108.0 mmol/L 98-107 CARBON DIOXIDE (test code=CO2) mmol/L 21-32 ANION GAP (test code=GAP) 10-20 GLUCOSE (test code=GLU) mg/dL 74-106 BLOOD UREA NITROGEN (test code=BUN) mg/dL 7-18 GLOMERULAR FILTRATION RATE (test code=GFR) mL/min >=60 CREATININE (test code=CREAT) mg/dL 0.7-1.3 BUN/CREATININE RATIO (test code=BUN/CREA) 10-20 CALCIUM (test code=CA) 8.6 mg/dL 8.5-10.1 PROTHROMBIN [id number] 12:20:00* Test Item Value Reference Range Comments PROTHROMBIN TIME PATIENT (test code=PTP) 23.5 seconds 9.0-14.0 INTERNATIONAL NORMAL RATIO (test code=INR) 2.0 0.8-1.2 The therapeutic range for oral anticoagulant therapy formost indications is an international normalized ratio (INR)of between 2.0 and 3.0. The recommended therapeutic INRrange for various clinical situations is listed below: Clinical Situation INR range Pulmonary e mbolism treatment (2.0-3.0)Venous thrombosis treatmentVenous thrombosis prophylaxis (high risk surgery)Prevention of systemic embolism from: Acute myocardial infarction Valvular heart disease Atrial fibrillation Mechanical prosthetic heart valves (2.5-3.5) THROMBOPLASTIN TIME [id number] 12:20:00* Test Item Value Reference Range Comments THROMBOPLASTIN TIME PARTIAL (test code=PTT) 41.9 seconds 25.0-36.5 CBC W/AUTO [id number] 12:04:00* Test Item Value Reference Range Comments WHITE BLOOD CELL (test code=WBC) 9.3 K/mm3 4.5-12.5 RED BLOOD CELL (test code=RBC) 4.34 mill/mm3 4.0-5.8 HEMOGLOBIN (test code=HGB) 11.9 gram/dL 13.0-17.5 HEMATOCRIT (test code=HCT) 37.1 % 42.0-52.0 MEAN CELL VOLUME (test code=MCV) 85.5 fL 80-98 MEAN CELL HGB (test code=MCH) 27.4 picogram 27.0-33.0 MEAN CELL HGB CONCETRATION (test code=MCHC) 32.1 gram/dL 33.0-36.0 RED CELL DISTRIBUTION WIDTH (test code=RDW) 15.5 % 11.6-16.2 RED CELL DISTRIBUTION WIDTH SD (test code=RDW-SD) 47.9 fL 37.0-51.0 PLATELET COUNT (test code=PLT) 217 K/mm3 150-450 MEAN PLATELET VOLUME (test code=MPV) 11.9 fL 6.7-11.0 NEUTROPHIL % (test code=NT%) 60.7 % 39.0-69.0 IMMATURE GRANULOCYTE % (test code=IG%) 0.8 % 0.0-5.0 LYMPHOCYTE % (test code=LY%) 24.1 % 25.0-55.0 MONOCYTE % (test code=MO%) 10.4 % 0.0-10.0 EOSINOPHIL % (test code=EO%) 3.2 % 0.0-5.0 BASOPHIL % (test code=BA%) 0.8 % 0.0-1.0 NUCLEATED RBC % (test code=NRBC%) 0.0 % 0-0 NEUTROPHIL # (test code=NT#) 5.67 K/mm3 1.8-7.7 IMMATURE GRANULOCYTE # (test code=IG#) 0.07 x10 3/uL 0-0.03 LYMPHOCYTE # (test code=LY#) 2.25 K/mm3 1.0-5.0 MONOCYTE # (test code=MO#) 0.97 K/mm3 0-0.8 EOSINOPHIL # (test code=EO#) 0.30 K/mm3 0.0-0.5 BASOPHIL # (test code=BA#) 0.07 K/mm3 0.0-0.2 NUCLEATED RBC # (test code=NRBC#) 0.00 K/mm3 0.0-0.1 MANUAL DIFF REQUIRED (test code=MDIFF) NO [id number] 16:26:00* Test Item Value Reference Range Comments GLUBED (test code=GLUBED) 120 mg/dL 74-106 Performed by certified dog food shredder operator at [facility] [id number] 12:12:00* Test Item Value Reference Range Comments GLUBED (test code=GLUBED) 137 mg/dL 74-106 Performed by certified dog food shredder operator at [facility] [id number] 08:39:00* Test Item Value Reference Range Comments GLUBED (test code=GLUBED) 120 mg/dL 74-106 Performed by certified dog food shredder operator at [facility] BLOOD UREA [id number] 05:33:00* Test Item Value Reference Range Comments BLOOD UREA NITROGEN (test code=BUN) 57 mg/dL 7-18 [id number] 05:33:00* Test Item Value Reference Range Comments CREATININE (test code=CREAT) 3.20 mg/dL 0.7-1.3 [id number] 21:08:00* Test Item Value Reference Range Comments GLUBED (test code=GLUBED) 129 mg/dL 74-106 Performed by certified dog food shredder operator at [facility] [id number] 16:52:00* Test Item Value Reference Range Comments GLUBED (test code=GLUBED) 166 mg/dL 74-106 Performed by certified dog food shredder operator at [facility] [id number] 11:54:00* Test Item Value Reference Range Comments GLUBED (test code=GLUBED) 214 mg/dL 74-106 Performed by certified dog food shredder operator at [facility] [id number] 08:33:00* Test Item Value Reference Range Comments GLUBED (test code=GLUBED) 73 mg/dL 74-106 Performed by certified dog food shredder operator at [facility] CBC W/AUTO [id number] 06:18:00* Test Item Value Reference Range Comments WHITE BLOOD CELL (test code=WBC) 11.2 K/mm3 4.5-12.5 RED BLOOD CELL (test code=RBC) 3.61 mill/mm3 4.0-5.8 HEMOGLOBIN (test code=HGB) 8.6 gram/dL 13.0-17.5 HEMATOCRIT (test code=HCT) 29.7 % 42.0-52.0 MEAN CELL VOLUME (test code=MCV) 82.3 fL 80-98 MEAN CELL HGB (test code=MCH) 23.8 picogram 27.0-33.0 MEAN CELL HGB CONCETRATION (test code=MCHC) 29.0 gram/dL 33.0-36.0 RED CELL DISTRIBUTION WIDTH (test code=RDW) 15.4 % 11.6-16.2 RED CELL DISTRIBUTION WIDTH SD (test code=RDW-SD) 45.7 fL 37.0-51.0 PLATELET COUNT (test code=PLT) 252 K/mm3 150-450 MEAN PLATELET VOLUME (test code=MPV) 12.0 fL 6.7-11.0 NEUTROPHIL % (test code=NT%) 60.4 % 39.0-69.0 IMMATURE GRANULOCYTE % (test code=IG%) 0.5 % 0.0-5.0 LYMPHOCYTE % (test code=LY%) 20.8 % 25.0-55.0 MONOCYTE % (test code=MO%) 14.8 % 0.0-10.0 EOSINOPHIL % (test code=EO%) 2.9 % 0.0-5.0 BASOPHIL % (test code=BA%) 0.6 % 0.0-1.0 NUCLEATED RBC % (test code=NRBC%) 0.0 % 0-0 NEUTROPHIL # (test code=NT#) 6.75 K/mm3 1.8-7.7 IMMATURE GRANULOCYTE # (test code=IG#) 0.06 x10 3/uL 0-0.03 LYMPHOCYTE # (test code=LY#) 2.33 K/mm3 1.0-5.0 MONOCYTE # (test code=MO#) 1.65 K/mm3 0-0.8 EOSINOPHIL # (test code=EO#) 0.32 K/mm3 0.0-0.5 BASOPHIL # (test code=BA#) 0.07 K/mm3 0.0-0.2 NUCLEATED RBC # (test code=NRBC#) 0.00 K/mm3 0.0-0.1 MANUAL DIFF REQUIRED (test code=MDIFF) NO, ONLY SCAN NEEDED DIFFERENTIAL [id number] 06:18:00* Test Item Value Reference Range Comments STAIN ACCEPTABILITY (test code=STN ACCEPTABLE) STAIN ACCEPTABLE HYPOCHROMIA (test code=HYPO) 1+ ANISOCYTOSIS (test code=ANISO) 1+ MICROCYTOSIS (test code=MICR) 1+ PLATELET ESTIMATE (test code=PLTEST) ADEQUATE PLATELET MORPHOLOGY (test code=PLTMORPH) CLUMPING PRESENT CBC W/AUTO [id number] 05:15:00* Test Item Value Reference Range Comments WHITE BLOOD CELL (test code=WBC) 11.2 K/mm3 4.5-12.5 RED BLOOD CELL (test code=RBC) 3.61 mill/mm3 4.0-5.8 HEMOGLOBIN (test code=HGB) 8.6 gram/dL 13.0-17.5 HEMATOCRIT (test code=HCT) 29.7 % 42.0-52.0 MEAN CELL VOLUME (test code=MCV) 82.3 fL 80-98 MEAN CELL HGB (test code=MCH) 23.8 picogram 27.0-33.0 MEAN CELL HGB CONCETRATION (test code=MCHC) 29.0 gram/dL 33.0-36.0 RED CELL DISTRIBUTION WIDTH (test code=RDW) 15.4 % 11.6-16.2 RED CELL DISTRIBUTION WIDTH SD (test code=RDW-SD) 45.7 fL 37.0-51.0 PLATELET COUNT (test code=PLT) 252 K/mm3 150-450 MEAN PLATELET VOLUME (test code=MPV) 12.0 fL 6.7-11.0 NEUTROPHIL % (test code=NT%) 60.4 % 39.0-69.0 IMMATURE GRANULOCYTE % (test code=IG%) 0.5 % 0.0-5.0 LYMPHOCYTE % (test code=LY%) 20.8 % 25.0-55.0 MONOCYTE % (test code=MO%) 14.8 % 0.0-10.0 EOSINOPHIL % (test code=EO%) 2.9 % 0.0-5.0 BASOPHIL % (test code=BA%) 0.6 % 0.0-1.0 NUCLEATED RBC % (test code=NRBC%) 0.0 % 0-0 NEUTROPHIL # (test code=NT#) 6.75 K/mm3 1.8-7.7 IMMATURE GRANULOCYTE # (test code=IG#) 0.06 x10 3/uL 0-0.03 LYMPHOCYTE # (test code=LY#) 2.33 K/mm3 1.0-5.0 MONOCYTE # (test code=MO#) 1.65 K/mm3 0-0.8 EOSINOPHIL # (test code=EO#) 0.32 K/mm3 0.0-0.5 BASOPHIL # (test code=BA#) 0.07 K/mm3 0.0-0.2 NUCLEATED RBC # (test code=NRBC#) 0.00 K/mm3 0.0-0.1 MANUAL DIFF REQUIRED (test code=MDIFF) NO, ONLY SCAN NEEDED DIFFERENTIAL [id number] 05:15:00* Test Item Value Reference Range Comments STAIN ACCEPTABILITY (test code=STN ACCEPTABLE) CABOT RINGS (test code=CAB) MORPHOLOGY COMMENT (test code=MOC) PLATELET ESTIMATE (test code=PLTEST) PLATELET MORPHOLOGY (test code=PLTMORPH) CBC W/AUTO [id number] 05:15:00* Test Item Value Reference Range Comments WHITE BLOOD CELL (test code=WBC) 11.2 K/mm3 4.5-12.5 RED BLOOD CELL (test code=RBC) 3.61 mill/mm3 4.0-5.8 HEMOGLOBIN (test code=HGB) 8.6 gram/dL 13.0-17.5 HEMATOCRIT (test code=HCT) 29.7 % 42.0-52.0 MEAN CELL VOLUME (test code=MCV) 82.3 fL 80-98 MEAN CELL HGB (test code=MCH) 23.8 picogram 27.0-33.0 MEAN CELL HGB CONCETRATION (test code=MCHC) 29.0 gram/dL 33.0-36.0 RED CELL DISTRIBUTION WIDTH (test code=RDW) 15.4 % 11.6-16.2 RED CELL DISTRIBUTION WIDTH SD (test code=RDW-SD) 45.7 fL 37.0-51.0 PLATELET COUNT (test code=PLT) 252 K/mm3 150-450 MEAN PLATELET VOLUME (test code=MPV) 12.0 fL 6.7-11.0 NEUTROPHIL % (test code=NT%) 60.4 % 39.0-69.0 IMMATURE GRANULOCYTE % (test code=IG%) 0.5 % 0.0-5.0 LYMPHOCYTE % (test code=LY%) 20.8 % 25.0-55.0 MONOCYTE % (test code=MO%) 14.8 % 0.0-10.0 EOSINOPHIL % (test code=EO%) 2.9 % 0.0-5.0 BASOPHIL % (test code=BA%) 0.6 % 0.0-1.0 NUCLEATED RBC % (test code=NRBC%) 0.0 % 0-0 NEUTROPHIL # (test code=NT#) 6.75 K/mm3 1.8-7.7 IMMATURE GRANULOCYTE # (test code=IG#) 0.06 x10 3/uL 0-0.03 LYMPHOCYTE # (test code=LY#) 2.33 K/mm3 1.0-5.0 MONOCYTE # (test code=MO#) 1.65 K/mm3 0-0.8 EOSINOPHIL # (test code=EO#) 0.32 K/mm3 0.0-0.5 BASOPHIL # (test code=BA#) 0.07 K/mm3 0.0-0.2 NUCLEATED RBC # (test code=NRBC#) 0.00 K/mm3 0.0-0.1 MANUAL DIFF REQUIRED (test code=MDIFF) NO, ONLY SCAN NEEDED DIFFERENTIAL [id number] 05:15:00* Test Item Value Reference Range Comments STAIN ACCEPTABILITY (test code=STN ACCEPTABLE) CABOT RINGS (test code=CAB) MORPHOLOGY COMMENT (test code=MOC) PLATELET ESTIMATE (test code=PLTEST) PLATELET MORPHOLOGY (test code=PLTMORPH) CBC W/AUTO [id number] 05:15:00* Test Item Value Reference Range Comments WHITE BLOOD CELL (test code=WBC) 11.2 K/mm3 4.5-12.5 RED BLOOD CELL (test code=RBC) 3.61 mill/mm3 4.0-5.8 HEMOGLOBIN (test code=HGB) 8.6 gram/dL 13.0-17.5 HEMATOCRIT (test code=HCT) 29.7 % 42.0-52.0 MEAN CELL VOLUME (test code=MCV) 82.3 fL 80-98 MEAN CELL HGB (test code=MCH) 23.8 picogram 27.0-33.0 MEAN CELL HGB CONCETRATION (test code=MCHC) 29.0 gram/dL 33.0-36.0 RED CELL DISTRIBUTION WIDTH (test code=RDW) 15.4 % 11.6-16.2 RED CELL DISTRIBUTION WIDTH SD (test code=RDW-SD) 45.7 fL 37.0-51.0 PLATELET COUNT (test code=PLT) 252 K/mm3 150-450 MEAN PLATELET VOLUME (test code=MPV) 12.0 fL 6.7-11.0 NEUTROPHIL % (test code=NT%) 60.4 % 39.0-69.0 IMMATURE GRANULOCYTE % (test code=IG%) 0.5 % 0.0-5.0 LYMPHOCYTE % (test code=LY%) 20.8 % 25.0-55.0 MONOCYTE % (test code=MO%) 14.8 % 0.0-10.0 EOSINOPHIL % (test code=EO%) 2.9 % 0.0-5.0 BASOPHIL % (test code=BA%) 0.6 % 0.0-1.0 NUCLEATED RBC % (test code=NRBC%) 0.0 % 0-0 NEUTROPHIL # (test code=NT#) 6.75 K/mm3 1.8-7.7 IMMATURE GRANULOCYTE # (test code=IG#) 0.06 x10 3/uL 0-0.03 LYMPHOCYTE # (test code=LY#) 2.33 K/mm3 1.0-5.0 MONOCYTE # (test code=MO#) 1.65 K/mm3 0-0.8 EOSINOPHIL # (test code=EO#) 0.32 K/mm3 0.0-0.5 BASOPHIL # (test code=BA#) 0.07 K/mm3 0.0-0.2 NUCLEATED RBC # (test code=NRBC#) 0.00 K/mm3 0.0-0.1 MANUAL DIFF REQUIRED (test code=MDIFF) NO, ONLY SCAN NEEDED DIFFERENTIAL [id number] 05:15:00* Test Item Value Reference Range Comments STAIN ACCEPTABILITY (test code=STN ACCEPTABLE) MORPHOLOGY COMMENT (test code=MOC) PLATELET ESTIMATE (test code=PLTEST) PLATELET MORPHOLOGY (test code=PLTMORPH) CBC W/AUTO [id number] 05:15:00* Test Item Value Reference Range Comments WHITE BLOOD CELL (test code=WBC) 11.2 K/mm3 4.5-12.5 RED BLOOD CELL (test code=RBC) 3.61 mill/mm3 4.0-5.8 HEMOGLOBIN (test code=HGB) 8.6 gram/dL 13.0-17.5 HEMATOCRIT (test code=HCT) 29.7 % 42.0-52.0 MEAN CELL VOLUME (test code=MCV) 82.3 fL 80-98 MEAN CELL HGB (test code=MCH) 23.8 picogram 27.0-33.0 MEAN CELL HGB CONCETRATION (test code=MCHC) 29.0 gram/dL 33.0-36.0 RED CELL DISTRIBUTION WIDTH (test code=RDW) 15.4 % 11.6-16.2 RED CELL DISTRIBUTION WIDTH SD (test code=RDW-SD) 45.7 fL 37.0-51.0 PLATELET COUNT (test code=PLT) 252 K/mm3 150-450 MEAN PLATELET VOLUME (test code=MPV) 12.0 fL 6.7-11.0 NEUTROPHIL % (test code=NT%) 60.4 % 39.0-69.0 IMMATURE GRANULOCYTE % (test code=IG%) 0.5 % 0.0-5.0 LYMPHOCYTE % (test code=LY%) 20.8 % 25.0-55.0 MONOCYTE % (test code=MO%) 14.8 % 0.0-10.0 EOSINOPHIL % (test code=EO%) 2.9 % 0.0-5.0 BASOPHIL % (test code=BA%) 0.6 % 0.0-1.0 NUCLEATED RBC % (test code=NRBC%) 0.0 % 0-0 NEUTROPHIL # (test code=NT#) 6.75 K/mm3 1.8-7.7 IMMATURE GRANULOCYTE # (test code=IG#) 0.06 x10 3/uL 0-0.03 LYMPHOCYTE # (test code=LY#) 2.33 K/mm3 1.0-5.0 MONOCYTE # (test code=MO#) 1.65 K/mm3 0-0.8 EOSINOPHIL # (test code=EO#) 0.32 K/mm3 0.0-0.5 BASOPHIL # (test code=BA#) 0.07 K/mm3 0.0-0.2 NUCLEATED RBC # (test code=NRBC#) 0.00 K/mm3 0.0-0.1 MANUAL DIFF REQUIRED (test code=MDIFF) NO, ONLY SCAN NEEDED DIFFERENTIAL [id number] 05:15:00* Test Item Value Reference Range Comments STAIN ACCEPTABILITY (test code=STN ACCEPTABLE) CABOT RINGS (test code=CAB) MORPHOLOGY COMMENT (test code=MOC) PLATELET ESTIMATE (test code=PLTEST) PLATELET MORPHOLOGY (test code=PLTMORPH) BASIC METABOLIC [id number] 05:07:00* Test Item Value Reference Range Comments SODIUM (test code=NA) 139 mmol/L 136-145 POTASSIUM (test code=K) 4.0 mmol/L 3.5-5.1 CHLORIDE (test code=CL) 104.0 mmol/L 98-107 CARBON DIOXIDE (test code=CO2) 28.0 mmol/L 21-32 ANION GAP (test code=GAP) 11.0 10-20 GLUCOSE (test code=GLU) 87 mg/dL 74-106 BLOOD UREA NITROGEN (test code=BUN) 51 mg/dL 7-18 GLOMERULAR FILTRATION RATE (test code=GFR) 22 mL/min >=60 Estimated GFR by using Modified MDRD formula.Chronic kidney disease is defined as either kidney damageor GFR <60 mL/min/1.73 m2 for >3 months. CREATININE (test code=CREAT) 2.80 mg/dL 0.7-1.3 BUN/CREATININE RATIO (test code=BUN/CREA) 18.2 10-20 CALCIUM (test code=CA) 8.8 mg/dL 8.5-10.1 BASIC METABOLIC [id number] 04:58:00* Test Item Value Reference Range Comments SODIUM (test code=NA) 139 mmol/L 136-145 POTASSIUM (test code=K) 4.0 mmol/L 3.5-5.1 CHLORIDE (test code=CL) 104.0 mmol/L 98-107 CARBON DIOXIDE (test code=CO2) mmol/L 21-32 ANION GAP (test code=GAP) 10-20 GLUCOSE (test code=GLU) mg/dL 74-106 BLOOD UREA NITROGEN (test code=BUN) mg/dL 7-18 GLOMERULAR FILTRATION RATE (test code=GFR) mL/min >=60 CREATININE (test code=CREAT) mg/dL 0.7-1.3 BUN/CREATININE RATIO (test code=BUN/CREA) 10-20 CALCIUM (test code=CA) mg/dL 8.5-10.1 [id number] 21:16:00* Test Item Value Reference Range Comments GLUBED (test code=GLUBED) 79 mg/dL 74-106 Performed by certified dog food shredder operator at [facility] [id number] 15:56:00* Test Item Value Reference Range Comments GLUBED (test code=GLUBED) 114 mg/dL 74-106 Performed by certified dog food shredder operator at [facility] [id number] 11:23:00* Test Item Value Reference Range Comments GLUBED (test code=GLUBED) 148 mg/dL 74-106 Performed by certified dog food shredder operator at [facility] [id number] 07:48:00* Test Item Value Reference Range Comments GLUBED (test code=GLUBED) 165 mg/dL 74-106 Performed by certified dog food shredder operator at [facility] [id number] 22:24:00* Test Item Value Reference Range Comments GLUBED (test code=GLUBED) 138 mg/dL 74-106 Performed by certified dog food shredder operator at [facility] [id number] 20:42:00* Test Item Value Reference Range Comments TROPONIN-I (test code=TROPI) 0.040 ng/mL 0-0.045 COMMENTS TO GYPSUM ROOFER: COLLECT 3 HOURS AFTER PREVIOUS [id number] 19:24:00* Test Item Value Reference Range Comments TROPONIN-I (test code=TROPI) 0.036 ng/mL 0-0.045 COMMENTS TO GYPSUM ROOFER: COLLECT 3 HOURS AFTER PREVIOUS SAMPLE- CT CHEST W/O [id number] 18:46:00 Name: TRACI ZAMORA [facility] : 1940 Age/S: 77 / M [address] Unit #: [id number] Loc: [place] [address] Phys: Parveen Sandoval MD Acct: [id number] Dis Date: Status: ADM IN PHONE #: [phone] Exam Date: 10/17/2018 1817 FAX #: [phone] Reason: PNEUMONIA / SOB EXAMS: CPT CODE: [id number] CT CHEST W/O CONTRAST 23225 REASON FOR EXAM: PNEUMONIA / SOB EXAM ORDER DATE: 10/17/2018 5:37 PM Ordering Tee: Parveen Baker MD PROCEDURE: - CT CHEST W/O CONTRAST FINDINGS: CT images of the chest were obtained without IV contrast. Reconstructed sagittal and coronal images of the chest were provided for interpretation. Dose modulation, iterative reconstruction, and/or weight based adjustment of the MA/KV was utilized to reduce the radiation dose to as low as reasonably achievable. The heart size is minimally enlarged. No evidence of pericardial effusion. The thoracic aorta is unremarkable. No evidence of mediastinal or hilar adenopathy. The lungs are clear. IMPRESSION: Minimal cardiomegaly and small bilateral pleural effusions larger on the right [employer] lly Signed by Tee Espana on 10/17/2018 at 1846 Reporte d and signed by: Wero Espana M.D. CC: Nicola Mccall MD; Rory Sandoval Technologist:Shahana Hodges RT(R) CTDI: DLP: Trnscb Date/Time: 10/17/2018 (1845) t.SDR.VTL Orig Print D/T: S: 10/17/2018 (185) CTDI: DLP: PAGE 1 Signed Report GLUBED 2018-10-17 16:57:00* Test Item Value Reference Range Comments GLUBED (test code=GLUBED) 108 mg/dL 74-106 Performed by certified dog food shredder operator at [facility] B-TYPE NATRIURETIC [id number] 13:39:00* Test Item Value Reference Range Comments B-TYPE NATRIURETIC PEPTIDE (test code=BNP) 1028.28 pgram/mL 0-100 BASIC METABOLIC [id number] 12:52:00* Test Item Value Reference Range Comments SODIUM (test code=NA) 138 mmol/L 136-145 POTASSIUM (test code=K) 4.0 mmol/L 3.5-5.1 CHLORIDE (test code=CL) 105.0 mmol/L 98-107 CARBON DIOXIDE (test code=CO2) 26.0 mmol/L 21-32 ANION GAP (test code=GAP) 11.0 10-20 GLUCOSE (test code=GLU) 106 mg/dL 74-106 BLOOD UREA NITROGEN (test code=BUN) 45 mg/dL 7-18 GLOMERULAR FILTRATION RATE (test code=GFR) 23 mL/min >=60 Estimated GFR by using Modified MDRD formula.Chronic kidney disease is defined as either kidney damageor GFR <60 mL/min/1.73 m2 for >3 months. CREATININE (test code=CREAT) 2.70 mg/dL 0.7-1.3 BUN/CREATININE RATIO (test code=BUN/CREA) 16.7 10-20 CALCIUM (test code=CA) 9.0 mg/dL 8.5-10.1 [id number] 12:52:00* Test Item Value Reference Range Comments TROPONIN-I (test code=TROPI) 0.033 ng/mL 0-0.045 CBC W/O [id number] 12:23:00* Test Item Value Reference Range Comments WHITE BLOOD CELL (test code=WBC) 9.8 K/mm3 4.5-12.5 RED BLOOD CELL (test code=RBC) 3.66 mill/mm3 4.0-5.8 HEMOGLOBIN (test code=HGB) 9.0 gram/dL 13.0-17.5 HEMATOCRIT (test code=HCT) 30.3 % 42.0-52.0 MEAN CELL VOLUME (test code=MCV) 82.8 fL 80-98 MEAN CELL HGB (test code=MCH) 24.6 picogram 27.0-33.0 MEAN CELL HGB CONCETRATION (test code=MCHC) 29.7 gram/dL 33.0-36.0 RED CELL DISTRIBUTION WIDTH (test code=RDW) 15.5 % 11.6-16.2 PLATELET COUNT (test code=PLT) 265 K/mm3 150-450 MEAN PLATELET VOLUME (test code=MPV) 11.6 fL 6.7-11.0 - XR CHEST 1 [id number] 12:19:00 FAX: Nicola Mclain MD [phone] [place]: B St: [facility] FAX: Prakash Gallardo MD [phone] Name: TRACI ZAMORA [facility] : 1940 Age/S: 77/M [address] [facility] Unit #: [id number] Loc: [place] [address] Phys: Prakash Gallardo MD Acct: [id number] Dis Date: Status: REG ER PHONE #: [phone] Exam Date: 10/17/2018 1155 FAX #: [phone] Reason: Shortness of Breath EXAMS: CPT CODE: [id number] XR CHEST 1 V 18089 HISTORY: Shortness of breath. COMPARISON: July 23, 2018. Patchy right lower lobe infiltrate. No effusion or congestion. Dependent changes. Moderate cardiomegaly. IMPRESSION: Patchy right lower lobe infiltrate. at 1219 Reported and signed by: Guru Hirsch M.D. CC: Nicola Mccall MD; Prakash Gallardo MD Technologist: Iliana Swain(R); STUDENT TECHNOLOGIST Trnscrd Date/Time/By: 10/17/2018 (6470) : By: [email or web address] Orig Print D/T: S: 10/17/2018 (9703) PAGE 1 Signed Report CTA ABD/PEL/RUN [id number] 10:38:00 [place] [address] Patient Name: TRACI ZAMORA MR #: [id number] : 1940 Age/Sex: 77/M Req #: [id number] Adm Physician: Ordered by: NICOLA MCCALL MD Report #: [id number] Location: [place] Room/Bed: Procedure: [id number] CT/CTA ABD/PEL/RUN OFF Exam D ate: 01/30/18 Exam Time: 904 REPORT STATUS: Si gned PROCEDURE: CTA ABD/PEL/BILATERAL LOWER EXT RUNOFF COMPARISON: Non e. INDICATIONS: Pseudoaneurysm TECHNIQUE: Multi-detector CT technology wi th Dose Reduction was employed. Images were obtained after the administration of 100 cc intravenously. For optimization of anatomic evaluation, multiplanar and volume rendering reconstructions were performed. Advanced 3-D off-line postprocessing were performed on a dedicated stand-alone workstation under the direct supervision of the interpreting physician. ESTIMATED DOSE: DLP: 12 21 mGy-cm FINDINGS: Aortic and visceral branch vessels: There is a small to moderate amount of plaque throughout the abdominal aorta and branch vessels. There is no aortic aneurysm or dissection. Suprarenal abdominal aor ta measures up to 2.5 cm and the infrarenal abdominal aorta measures up to 1. 9 cm. The celiac, inferior mesenteric, and renal arteries are patent wit hout significant narrowing. There is a focal dissection flap at the origin of the superior mesenteric artery (series 3, image 28) with mild luminal jacqueline rowing. There is a replaced hepatic artery off the SMA which gives rise to th e right and left hepatic arteries. There are two right and a single left elsa l artery. Pelvic vessels: Right common iliac artery: There is a focal d issection flap of the distal right common iliac artery extending into the pro ximal right external iliac artery (series 3, image 72). The bilateral common, external and internal iliac arteries are patent with scattered atheroscle rotic changes. No significant areas of narrowing. Right lower extremity: There is a partially thrombosed pseudoaneurysm arising from the right common femoral artery measuring up to 2.6 x 3.4 x 3.1 cm (AP x TV x SI) on axial se sugey 3 image 106 and coronal series 403 image 59. The neck is not well opacif ied but measures approximately 2 mm in width and 8 mm in length. The r ight common femoral, superficial femoral, deep femoral, and popliteal arterie s are patent. Mild atherosclerotic changes in the distal popliteal artery. Th ere is a 3 vessel patent run off to the right leg. Left lower extremity : The left common femoral, superficial femoral, deep femoral, and popli teal arteries are patent. Mild atherosclerotic changes in the distal poplitea l artery. There is a 3 vessel patent run off to the left leg. There is subcut aneous edema throughout the left lower leg and foot. Surgical clips are prese nt in the left medial thigh. Abdominal and Pelvic soft-tissues and organs : Lung bases: Coronary atherosclerosis. Liver: No focal hepatic lesions on arterial phase imaging. No biliary ductal dilatation. Spleen: No splenomeg devon. Pancreas: No pancreatic ductal dilatation. Subcentimeter hypodensity in the pancreatic head, likely side branch IPMN. Adrenal Glands: No eviden ce of nodule. Kidneys: No evidence of hydronephrosis or stone. A 3 cm hypodens e cyst (18 HU) is present in the left mid pole kidney. Lymph nodes: No lymphadenopathy. GI: No bowel distention or wall thickening. Normal appendix. Peritoneum/Retroperitoneum: No free air or fluid. Pelvis: Bladder is unrem arkable. Musculoskeletal: Fat containing ventral hernia. Subcutaneous s tranding/edema is present in the anterior abdominal wall. Scattered degenerat amparo endplate changes in the lumbar spine. Grade 1 anterolisthesis of L4 on L5 . 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 Neck measuring 2 mm in width and approximately 8 mm in length. 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 I ncidental focal dissection involving the distal right common iliac artery ext ending into the proximal right external iliac artery. Scattered atheros clerotic changes as above without significant visceral or lower extremity vas cular narrowing or aneurysm. Three vessel runoff to bilateral lower extremiti es. Dictated by: ANGELA REESE M.D. on 01/30/2018 at 10:38 Electroni agustina approved by: ANGELA REESE M.D. on 01/30/2018 at 10:38 Dictat ed By: ANGELA REESE MD 1038 Transcribed By: CONOR on 01/30/18 1038 COPY TO: NICOLA MCCALL MD
[2019-09-19] MEDS ORDERED: MORPHINE SULFATE INJ 4 MG/ML INJ 1ML IV STA (16:47)
[2019-09-19] MEDS ORDERED: ONDANSETRON HCL INJ 2MG/ML 2ML 2 MG/ML VIAL IV STA (16:47)
[2019-09-19] MEDS ORDERED: SODIUM CHLORIDE 0.9% 1000ML 1,000 ML IV STA (16:47)
[2019-09-19] MEDS ORDERED: VANCOMYCIN 1GM/NS 250 ML 250 ML IV STA (16:47)
[2019-09-19 17:34] LABS: BASOPHILS % 0.2 % (0.0-1.0); EOSINOPHILS # (AUTO) 0.1 (0.0-0.4); EOSINOPHILS % 0.6 % (0.0-6.0); HEMATOCRIT 34.8 % (38.2-49.6); HEMOGLOBIN 11.3 g/dL (14.0-18.0); LYMPHOCYTES # (AUTO) 1.3 (1.0-3.2); LYMPHOCYTES % 15.5 % (18.0-39.1); MEAN CORPUSCULAR HGB CONC 32.5 g/dL (31-35); MEAN CORPUSCULAR VOLUME 89.2 fL (81-99); MONOCYTES # (AUTO) 1.4 (0.2-0.8); MONOCYTES % 17.1 % (4.4-11.3); NEUTROPHILS # (AUTO) 5.5 (2.1-6.9); PLATELET COUNT 237 x10e3/uL (140-360); RED CELL DISTRIBUTION WIDTH 17.1 % (11.7-14.4)
[2019-09-19 17:56] LABS: ALBUMIN 2.6 g/dL (3.5-5.0); ALBUMIN/GLOBULIN RATIO 0.6 (0.8-2.0); ANION GAP 19.5 mmol/L (8-16); CALCIUM 9.1 mg/dL (8.4-10.2); CREATININE, SERUM 3.58 mg/dL (0.72-1.25); POTASSIUM 4.5 mmol/L (3.5-5.1)
--- NOTE | 2019-09-19 17:58 | Diagnostic Imaging Report ---
EXAMINATION: CHEST SINGLE (PORTABLE) INDICATION: ^ERMD ORDER ^Y COMPARISON: None FINDINGS: AP view TUBES and LINES: AICD is intact. LUNGS: Lungs are well inflated. There is no evidence of pneumonia or pulmonary edema. PLEURA: No pleural effusion or pneumothorax. HEART AND MEDIASTINUM: Cardiac size is moderately enlarged. BONES AND SOFT TISSUES: No acute osseous lesion. Soft tissues are unremarkable. Midline sternotomy wires are in place. UPPER ABDOMEN: No free air under the diaphragm. IMPRESSION: No acute thoracic abnormality. Signed by: Levi Camp MD on 09/19/2019 5:55 PM
[2019-09-19 18:04] LABS: CREATINE KINASE MB 4.3 ng/mL (0-5.0)
[2019-09-19] MEDS ORDERED: PROPOFOL IV EMULSION 10 MG/ML 20 ML VIAL ONE (18:11)
[2019-09-19] MEDS ORDERED: LIDOCAINE HCL 2% LOCAL INJ 5 ML SDV VIAL INJ ONE (18:11)
--- NOTE | 2019-09-19 18:55 | Diagnostic Imaging Report ---
EXAM: CT Abdomen and Pelvis WITHOUT contrast INDICATION: abd pain COMPARISON: None. TECHNIQUE: Abdomen and pelvis were scanned utilizing a multidetector helical scanner from the lung base to the pubic symphysis without administration of IV contrast. Absence of intravenous contrast decreases sensitivity for detection of focal lesions and vascular pathology. Coronal and sagittal reformations were obtained. Routine protocol was performed. IV CONTRAST: None ORAL CONTRAST: Water COMPLICATIONS: None RADIATION DOSE: Total DLP: 659.19 mGy-cm Estimated effective dose: (DLP x 0.015 x size factor) mSv CTDIvol has been reviewed. It is below the limits set by the Radiation Protocol Committee (RPC). FINDINGS: LINES and TUBES: None. LOWER THORAX: Unremarkable HEPATOBILIARY: No focal lesion No biliary ductal dilation. GALLBLADDER: No radio-opaque stones or sludge. No wall thickening. SPLEEN: No splenomegaly. PANCREAS: No focal masses or ductal dilatation. ADRENALS: No adrenal nodules KIDNEYS/URETERS: No hydronephrosis. 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 No stones. GI TRACT: Nondilated loops of the small bowel is seen with no definite transition point likely due to ileus or partial small bowel obstruction. There is a small ventral abdominal wall hernia containing a nonobstructed loop of transverse colon and omental fat. PELVIC ORGANS/BLADDER: Unremarkable. LYMPH NODES: No lymphadenopathy. VESSELS: Unremarkable. PERITONEUM / RETROPERITONEUM: No free air or fluid. BONES: Unremarkable. SOFT TISSUES: Ventral abdominal wall hernia as above described. IMPRESSION: 1. Nondilated loops of the small bowel with no definite transition point likely due to ileus or partial small bowel obstruction. 2. Small ventral abdominal wall hernia containing a nonobstructed loop of transverse colon and omental fat. Signed by: Levi Camp MD on 09/19/2019 6:53 PM
[2019-09-19] MEDS ORDERED: PIPERACILLIN/TAZO 2.25 GM 50 ML IV STA (19:05)
[2019-09-19] MEDS ORDERED: BENZOCAINE/TETRACAINE/BUTAMBEN AERO SPRAY 56 GM CAN TOP ONE (19:15)
[2019-09-19] MEDS ORDERED: METOPROLOL TARTRATE INJ 1 MG/ML VIAL IV ONE (19:30)
[2019-09-19 19:39] LABS: INR 3.63
[2019-09-19 19:40] LABS: PARTIAL THROMBOPLASTIN TIME 58.1 seconds (23.8-35.5)
[2019-09-19] MEDS ORDERED: ONDANSETRON HCL INJ 2MG/ML 2ML 2 MG/ML VIAL IV PRN (20:15)
[2019-09-19] MEDS: SODIUM CHLORIDE 0.9% 1000ML 1,000 ML IV SCH ×2 (21:10→22:22)
[2019-09-19 22:32] LABS: CLARITY,URINE SL CLOUDY (CLEAR); COLOR,URINE YELLOW (YELLOW)
[2019-09-19 22:33] LABS: BILIRUBIN,URINE NEGATIVE (NEGATIVE); KETONES,URINE NEGATIVE (NEGATIVE); LEUKOCYTE ESTERASE ,URINE NEGATIVE (NEGATIVE); NITRITE,URINE NEGATIVE (NEGATIVE); PROTEIN,URINE DIPSTICK NEGATIVE (NEGATIVE); URINE UROBILINOGEN 0.2 mg/dL (0.2 - 1)
--- NOTE | 2019-09-19 22:36 | NUR ---
16 fr NGT placed to lt nare, air bolus administered and ausculated over abd, noted brown colored gastric contents to tubing, placed on LIWS at this time, pt tolerated procedure well.
--- NOTE | 2019-09-19 22:40 | NUR ---
Dr. Vergara at bedside for pt eval at this time.
[2019-09-19 22:52] LABS: CREATINE KINASE MB 4.3 ng/mL (0-5.0)
--- NOTE | 2019-09-19 22:52 | NUR ---
Approx 300 cc output through NGT noted, remains on LIWS, Pt tolerating well.
[2019-09-19 22:53] LABS: BACTERIA,URINE MANY /HPF; EPITHELIAL CELLS,URINE FEW /LPF; RENAL EPITHELIAL CELLS,URINE FEW; TRANSITIONAL EPI CELLS,URINE FEW; WBC,URINE (MAN) >50 /HPF (0-5)
[2019-09-20] VITALS (11 sets, daily range): BP systolic 100–118; BP diastolic 58–76
[2019-09-20] MEDS: PIPERACILLIN/TAZO 2.25 GM 50 ML IV SCH ×4 (01:41→22:00)
--- NOTE | 2019-09-20 02:30 | NUR ---
pt received from er via stretcher. no ss of distress noted upon admission. pt made comfortable and oriented to rm. tele placed. ngt to liws. no co pain at time. hx obtained at time. will cont to follow poc. call amos within reach.
--- NOTE | 2019-09-20 02:56 | Consultation ---
DATE OF CONSULTATION: 09/19/2019 CHIEF COMPLAINT: Abdominal pain and vomiting. HISTORY OF PRESENT ILLNESS: This patient is a 78-year-old male with a 4-day history of periumbilical abdominal pain and vomiting, intolerant of any oral intake. The patient has also complained of constipation. No fevers. He was recently discharged from [facility] approximately 11 days ago after having had cystoscopy for hematuria. The patient has been taking Xarelto for his heart. PAST MEDICAL HISTORY: Significant for coronary artery disease, heart failure, metabolic syndrome involving hypertension, diabetes, hyperlipidemia. He also has chronic renal insufficiency, prostate strictured recent. PAST SURGICAL HISTORY: Positive coronary artery bypass, coronary artery stenting, recent TURP. ALLERGIES: HE HAS NO DRUG ALLERGIES. SOCIAL HABITS: Denies smoking or alcohol abuse. REVIEW OF SYSTEMS: No chest pain, mild shortness of breath. PHYSICAL EXAMINATION: VITAL SIGNS: The patient is mildly tachycardic at 110. Blood pressure is 102/68, temperature 97. GENERAL: He is awake, alert, in moderate discomfort. HEENT: Sclerae anicteric. NECK: Supple. LUNGS: Clear. HEART: Regular rate and rhythm. ABDOMEN: Soft. Does have gal-umbilical mass, which is nonreducible and mildly guarding to palpation. No rebound. EXTREMITIES: There is mild skin erythema overlying the mass. EXTREMITIES: Mild ankle edema. LABORATORY DATA: White cell count is 8, hemoglobin 11, platelet count of 237. Creatinine is 3.5 with lactic acid 1.5. INR of 3.6 with PT of 39. CT of the abdomen show partial small-bowel obstruction with incarcerated transverse colon. ASSESSMENT: Small bowel obstruction from incarcerated umbilical hernia. No evidence of strangulation. The patient is significantly dehydrated with renal insufficiency and anticoagulopathic. PLAN: Resuscitations with fluid, antibiotics, and NG tube decompression. The patient will need repair of the incarcerated umbilical hernia at this hospitalization when conditions improve medically and cardiac clearance. Jose Vergara MD DNL/MODL /[id number]
[2019-09-20] MEDS ORDERED: SYMBICORT 16010.2 GM INH (03:07)
[2019-09-20] MEDS ORDERED: PANTOPRAZOLE SO40 MG PO (03:07)
[2019-09-20] MEDS ORDERED: RANEXA500 MG PO (03:07)
[2019-09-20] MEDS ORDERED: IPRATROPIU0.2 MG/1 M NEB (03:07)
[2019-09-20] MEDS ORDERED: ALLOPURINOL100 MG PO (03:07)
[2019-09-20] MEDS ORDERED: XARELTO15 MG PO (03:07)
[2019-09-20] MEDS ORDERED: METOLAZONE5 MG PO (03:07)
[2019-09-20] MEDS ORDERED: FERROUS SULFAT325 MG PO (03:07)
--- NOTE | 2019-09-20 04:30 | NUR ---
pt resting. no ss of distress noted. call amos within reach.
[2019-09-20] MEDS: SODIUM CHLORIDE 0.9% 1000ML 1,000 ML IV SCH (06:06)
--- NOTE | 2019-09-20 06:07 | NUR ---
blood drawn and sent to lab per orders. pt tolerated well. no ss of distress noted. call amos within reach.
[2019-09-20 06:18] LABS: BASOPHILS % 0.3 % (0.0-1.0); EOSINOPHILS # (AUTO) 0.1 (0.0-0.4); EOSINOPHILS % 1.2 % (0.0-6.0); HEMATOCRIT 28.9 % (38.2-49.6); HEMOGLOBIN 9.6 g/dL (14.0-18.0); LYMPHOCYTES # (AUTO) 1.2 (1.0-3.2); LYMPHOCYTES % 15.2 % (18.0-39.1); MEAN CORPUSCULAR HEMOGLOBIN 29.6 pg (28-32); MEAN CORPUSCULAR HGB CONC 33.2 g/dL (31-35); MEAN CORPUSCULAR VOLUME 89.2 fL (81-99); MONOCYTES # (AUTO) 1.6 (0.2-0.8); MONOCYTES % 20.6 % (4.4-11.3); NEUTROPHILS # (AUTO) 4.7 (2.1-6.9); NEUTROPHILS % 62.2 % (38.7-80.0); PLATELET COUNT 175 x10e3/uL (140-360); RED BLOOD COUNT 3.24 x10e6/uL (4.3-5.7); RED CELL DISTRIBUTION WIDTH 16.8 % (11.7-14.4)
--- NOTE | 2019-09-20 06:37 | NUR ---
spoke to dr sandeep schroeder answering service for consult. awaiting return phone call. will notify oncoming nurse.
--- NOTE | 2019-09-20 06:54 | NUR ---
spoke to dr sandeep schroeder regarding new consult. no new orders given at time.
[2019-09-20 07:18] LABS: CREATINE KINASE MB 4.1 ng/mL (0-5.0)
[2019-09-20 07:35] LABS: ALBUMIN 2.1 g/dL (3.5-5.0); ALBUMIN/GLOBULIN RATIO 0.6 (0.8-2.0); ANION GAP 17.9 mmol/L (8-16); CREATININE, SERUM 3.65 mg/dL (0.72-1.25); POTASSIUM 3.9 mmol/L (3.5-5.1)
[2019-09-20 09:28] LABS: EOSINOPHILS % (MANUAL) 2 % (0-7); LYMPHOCYTES % (MANUAL) 17 % (19-48); MONOCYTES % (MANUAL) 15 % (3.4-9.0); NEUTROPHILS % (MANUAL) 66 % (40-74); PLATELET MORPHOLOGY COMMENT NORMAL; RBC MORPHOLOGY COMMENT NORMAL
[2019-09-20 09:29] LABS: PLATELET ESTIMATE ADEQUATE
[2019-09-20] MEDS ORDERED: FUROSEMIDE INJ 10 MG/ML 4 ML VIAL IV SCH (09:45)
[2019-09-20] MEDS ORDERED: DEXTROSE 50% SYRINGE 50 ML IV PRN (09:45)
[2019-09-20] MEDS ORDERED: HYDRALAZINE HCL 20 MG/ML VIAL IV PRN (09:45)
[2019-09-20] MEDS: INSULIN LISPRO 100 UNIT/1 ML 3ML VIAL SQ SCH ×2 (11:32→18:00)
--- NOTE | 2019-09-20 13:53 | Consultation ---
DATE OF CONSULTATION: 09/20/2019 HISTORY OF PRESENT ILLNESS: Mr. Bran Brock is a 78-year-old male with primary history of hypertension, CAD with previous stents in 2019, CABG in 1998, CHF, atrial fibrillation, on Xarelto with ICD implantation in 2019, hyperlipidemia, CKD, admitted complaining of abdominal hernia with redness to umbilical area, accompanied with nausea and vomiting. The patient denies any chest pain, dizziness, or palpitations. PAST MEDICAL HISTORY: Hypertension, CAD with stents, CABG, CHF, diabetes, atrial fibrillation, hyperlipidemia, CKD, asthma, UTIs, abdominal hernia. PAST SURGICAL HISTORY: Prostate stents and the patient has pacer/AICD placed in 2019. HOME MEDICATIONS: Cardiac medications includes rivaroxaban 15 mg p.o. daily, potassium 10 mEq daily, ranolazine 500 mg one tablet b.i.d., pantoprazole 40 mg daily, metoprolol 25 mg b.i.d., metolazone 5 mg daily, furosemide 20 mg b.i.d., isosorbide 60 mg daily, atorvastatin 40 mg daily. ALLERGIES: NO KNOWN DRUG ALLERGIES. SOCIAL HISTORY: Nonsmoker. No alcohol use. FAMILY HISTORY: Negative. PHYSICAL EXAMINATION: VITAL SIGNS: Temperature is 98.2, pulse is 98, respirations 18, blood pressure is 100/73, 100% oxygen saturation on 2 L nasal cannula. GENERAL APPEARANCE: The patient is well developed, well nourished, in no acute distress. Alert and oriented. HEENT: Head, normocephalic, atraumatic. Eyes, pupils are equally round and reactive to light and accommodation. Sclerae are nonicteric. Ears are normal. Oral cavity, mucosa is moist. Throat is clear. NECK AND THYROID: Neck is supple. Full range of motion. No lymphadenopathy. SKIN: Scattered bruising in the arms and redness to periumbilical area. CARDIOVASCULAR: Heart has irregular rate and rhythm. S1 and S2 are irregular. No murmurs. LUNGS: Diminished to lower lobes. Otherwise, no crackles or rhonchi heard on auscultation. ABDOMEN: Distended, tender. Hypoactive bowel sounds. Redness to periumbilical area. BACK: Normal inspection. SKIN: Warm and dry. EXTREMITIES: Bilateral +4 pitting edema. NEUROLOGIC: Nonfocal. Motor strength is normal to upper extremities. Mild weakness to lower extremities. Sensory exam is intact. Reflexes are normal. X-RAYS AND EKG: Initial EKG shows AFib with heart rate in the low 100s with nonspecific ST or T changes in the anterior and lateral leads. Chest x-ray impression, no acute thoracic abnormality. IMPRESSION AND PLAN: The patient is admitted originally for small bowel obstruction. Cardiac enzyme, troponin elevation, likely due to demand ischemia. The patient is cleared for surgery from cardiac standpoint. 1. Monitor on telemetry and monitor hemodynamics closely. 2. Stop Xarelto, last taken on 09/19/2019 to prepare for surgery. 3. Obtain echocardiogram. 4. Diurese and continue with AV gil agents for rate and rhythm control. Thank you for this consultation. We will continue to follow. Dictated by Ingris Peter NP MD Devika DixonZA/[place] /[id number]
[2019-09-20 15:30] LABS: CREATINE KINASE MB 4.3 ng/mL (0-5.0)
--- NOTE | 2019-09-20 17:15 | History and Physical ---
PRIMARY CARE PHYSICIAN: Taurus Stevenson MD. CONSULTANTS: 1. Jose Whiteside MD. 2. Jose tejeda MD. 3. Jack Christie MD. CHIEF COMPLAINT: Abdominal cellulitis, associated small bowel obstruction with the ventral hernia incarceration. HISTORY: This is a 78-year-old male recently discharged from the hospital at [facility] for urinary retention, hematuria. The patient did have a cystoscopy at this time. He did well. Christopher catheter was discontinued and the patient is urinating well. The patient was subsequently discharged home. At that time, he has chronic abdominal wall umbilical hernia that was not having problem. The patient now came in with abdominal wall redness along the area of the umbilical associated with also tenderness and swelling and redness. The CT scan showed nondilated loop of small bowel with no definite transition point, ileus or partial small bowel obstruction with the small ventral abdominal wall hernia containing the bowel loops of transverse colon and omental fat. The abdominal wall has redness and tenderness. The patient is admitted for treatment. PAST MEDICAL HISTORY: 1. Atrial fibrillation. 2. Chronic kidney disease. 3. Enlarged prostate, urinary retention. 4. Coronary artery disease with history of coronary artery bypass graft surgery. 5. Dyslipidemia. 6. Diabetes type 2, on insulin therapy. 7. Congestive heart failure. 8. Anticoagulant therapy for atrial fibrillation. SOCIAL HISTORY: The patient does not smoke or use alcohol. No recreational drug. ALLERGIES: NO KNOWN ALLERGIES. HOME MEDICATION: 1. Allopurinol. 2. Lipitor. 3. Multiple inhalers. 4. Pepcid. 5. Ferrous sulfate. 6. Furosemide. 7. NovoLog. 8. Levemir. 9. Isosorbide . 10. Metolazone. 11. Metoprolol tartrate. 12. Protonix. 13. Ranexa. 14. Xarelto. PHYSICAL EXAMINATION: VITAL SIGNS: Temperature is 98, blood pressure 100/73, pulse rate 98, and respirations 18. GENERAL: The patient is not in acute distress. He is awake. HEENT: Normocephalic and atraumatic. Pupils reactive. Anicteric. NG tube in place. NECK: Supple. PULMONARY: Diminished breath sounds bilaterally. CARDIOVASCULAR: Atrial fibrillation, rate control. ABDOMEN: Abdominal wall redness along the periumbilical area and also umbilical hernia associated with tenderness and distention. EXTREMITIES: No cyanosis or edema. NEUROLOGIC: No gross focal deficit. LABORATORY DATA: Sodium is 131, potassium 3.9, chloride 92, bicarb 25, BUN 21, creatinine 2.6, glucose 76. WBC 7.6, hemoglobin 9.6, hematocrit 29, and platelets 175. INR is 3.63. IMPRESSION: 1. Possible incarcerated abdominal hernia with small and large bowel loop and omental flap. 2. Abdominal wall cellulitis. 3. Chronically and multiple chronic baseline medical problems. PLAN: Continue with some home medication, IV antibiotics. Consultation with Cardiology and General Surgery. Followup with Xarelto. Allow the INR to trend down. Continue with antibiotic, IV fluid support. We will follow up with the patient closely. MD DELORIS Gonzalez/WESTON /[id number]
[2019-09-20] MEDS: METOPROLOL TARTRATE INJ 1 MG/ML VIAL IV PRN (18:00)
[2019-09-20] MEDS: BUDESONIDE/FORMOTEROL 160/4.5MCG INHALER INH SCH (19:00)
[2019-09-20] MEDS: INSULIN GLARGINE 100 UNITS/ML VIAL SQ SCH (19:58)
[2019-09-20] MEDS ORDERED: INSULIN DETEMIR SQ SCH (21:00)
[2019-09-20] MEDS: MORPHINE SULFATE INJ 4 MG/ML INJ 1ML IV PRN (23:35)
[2019-09-21] VITALS (8 sets, daily range): BP systolic 106–120; BP diastolic 73–81
[2019-09-21 05:15] LABS: BASOPHILS % 0.1 % (0.0-1.0); EOSINOPHILS # (AUTO) 0.2 (0.0-0.4); EOSINOPHILS % 2.1 % (0.0-6.0); HEMATOCRIT 31.4 % (38.2-49.6); HEMOGLOBIN 9.7 g/dL (14.0-18.0); LYMPHOCYTES # (AUTO) 1.7 (1.0-3.2); LYMPHOCYTES % 17.6 % (18.0-39.1); MEAN CORPUSCULAR HEMOGLOBIN 28.8 pg (28-32); MEAN CORPUSCULAR HGB CONC 30.9 g/dL (31-35); MEAN CORPUSCULAR VOLUME 93.2 fL (81-99); MONOCYTES # (AUTO) 1.4 (0.2-0.8); MONOCYTES % 14.9 % (4.4-11.3); NEUTROPHILS # (AUTO) 6.2 (2.1-6.9); NEUTROPHILS % 64.9 % (38.7-80.0); PLATELET COUNT 204 x10e3/uL (140-360); RED BLOOD COUNT 3.37 x10e6/uL (4.3-5.7); RED CELL DISTRIBUTION WIDTH 17.2 % (11.7-14.4)
[2019-09-21 05:39] LABS: INR 1.6; PROTHROMBIN TIME 20.2 seconds (11.9-14.5)
[2019-09-21 05:52] LABS: ANION GAP 26.3 mmol/L (8-16); CALCIUM 8.5 mg/dL (8.4-10.2); CREATININE, SERUM 3.75 mg/dL (0.72-1.25); POTASSIUM 4.3 mmol/L (3.5-5.1)
[2019-09-21] MEDS: INSULIN LISPRO 100 UNIT/1 ML 3ML VIAL SQ SCH ×4 (06:00→17:38)
[2019-09-21] MEDS: PIPERACILLIN/TAZO 2.25 GM 50 ML IV SCH ×3 (06:00→22:00)
[2019-09-21] MEDS: BUDESONIDE/FORMOTEROL 160/4.5MCG INHALER INH SCH ×2 (07:00→19:00)
--- NOTE | 2019-09-21 07:00 | NUR ---
Patient endorsed to next shift for continuity of care
[2019-09-21] MEDS ORDERED: POTASSIUM PHOSPHATE 20 MM in SODIUM CHLORIDE 0.9% 250ML 250 ML IV ONE (14:15)
[2019-09-21] MEDS ORDERED: SODIUM CHLORIDE 0.9% 1000ML 1,000 ML IV SCH (14:30)
[2019-09-21] MEDS: SODIUM BICARBONATE 8.4% 150 ML in DEXTROSE 5% 1,000 ML IV SCH (16:35)
--- NOTE | 2019-09-21 18:18 | NUR ---
pt remains stable vs with ST controlled. surgery pending with dr tejeda
[2019-09-21] MEDS: INSULIN GLARGINE 100 UNITS/ML VIAL SQ SCH (20:22)
[2019-09-21] MEDS: MORPHINE SULFATE INJ 4 MG/ML INJ 1ML IV PRN (21:40)
[2019-09-21] MEDS: METOPROLOL TARTRATE INJ 1 MG/ML VIAL IV PRN ×2 (21:40)
[2019-09-22] VITALS (14 sets, daily range): BP systolic 90–124; BP diastolic 52–85
--- NOTE | 2019-09-22 00:26 | NUR ---
Patient complained he cannot sleep, he feels anxious due to the ng tube, Dr. Sandoval was made aware and he ordered Benadryl 25mg ivp once.
[2019-09-22] MEDS ORDERED: DIPHENHYDRAMINE HCL INJ 50 MG/ML VIAL IV ONE (00:30)
[2019-09-22] MEDS: INSULIN LISPRO 100 UNIT/1 ML 3ML VIAL SQ SCH ×4 (01:15→18:36)
[2019-09-22 05:54] LABS: BASOPHILS % 0.4 % (0.0-1.0); EOSINOPHILS # (AUTO) 0.1 (0.0-0.4); EOSINOPHILS % 1.4 % (0.0-6.0); HEMATOCRIT 28.5 % (38.2-49.6); HEMOGLOBIN 9.1 g/dL (14.0-18.0); LYMPHOCYTES # (AUTO) 1.5 (1.0-3.2); LYMPHOCYTES % 18.9 % (18.0-39.1); MEAN CORPUSCULAR HEMOGLOBIN 29.4 pg (28-32); MEAN CORPUSCULAR HGB CONC 31.9 g/dL (31-35); MEAN CORPUSCULAR VOLUME 92.2 fL (81-99); MONOCYTES # (AUTO) 1.4 (0.2-0.8); NEUTROPHILS # (AUTO) 4.9 (2.1-6.9); NEUTROPHILS % 61.7 % (38.7-80.0); PLATELET COUNT 183 x10e3/uL (140-360); RED BLOOD COUNT 3.09 x10e6/uL (4.3-5.7); RED CELL DISTRIBUTION WIDTH 17.2 % (11.7-14.4)
[2019-09-22] MEDS: PIPERACILLIN/TAZO 2.25 GM 50 ML IV SCH ×3 (06:06→21:32)
[2019-09-22] MEDS: SODIUM BICARBONATE 8.4% 150 ML in DEXTROSE 5% 1,000 ML IV SCH ×2 (06:06→20:55)
[2019-09-22 06:10] LABS: INR 1.28; PROTHROMBIN TIME 16.8 seconds (11.9-14.5)
[2019-09-22 06:17] LABS: ALBUMIN 2.3 g/dL (3.5-5.0); ALBUMIN/GLOBULIN RATIO 0.6 (0.8-2.0); ANION GAP 23.9 mmol/L (8-16); CALCIUM 8.4 mg/dL (8.4-10.2); CREATININE, SERUM 4.49 mg/dL (0.72-1.25); MAGNESIUM 2.4 MG/DL (1.3-2.1); POTASSIUM 3.9 mmol/L (3.5-5.1)
[2019-09-22] MEDS: BUDESONIDE/FORMOTEROL 160/4.5MCG INHALER INH SCH ×2 (07:00→19:00)
[2019-09-22] MEDS ORDERED: HEPARIN SOD (PORCINE) 5,000 UNIT/ML VIAL SC SCH (09:00)
--- NOTE | 2019-09-22 09:00 | NUR ---
Met with pt and his . Educated on IMM later, and they both verbalized understanding. signed for pt, as he was feeling weak. Copy to patient, and original placed in chart
[2019-09-22] MEDS ORDERED: INSULIN GLARGINE 100 UNITS/ML VIAL SQ ONE (11:00)
[2019-09-22] MEDS: LEVALBUTEROL HCL SOLN NEBU 1.25 MG/3 ML NEB INH SCH ×3 (11:00→19:00)
[2019-09-22] MEDS ORDERED: LEVALBUTEROL HCL SOLN NEBU 1.25 MG/3 ML NEB INH PRN (11:00)
[2019-09-22] MEDS: IPRATROPIUM BROMIDE 0.02% 2.5 ML NEB NEB SCH ×3 (11:00→19:00)
[2019-09-22] MEDS ORDERED: METOPROLOL TARTRATE INJ 1 MG/ML VIAL IV PRN (11:15)
[2019-09-22] MEDS: METOPROLOL TARTRATE INJ 1 MG/ML VIAL IV SCH ×4 (13:02→20:55)
[2019-09-22] MEDS ORDERED: MIDAZOLAM HCL 2 MG/2 ML VIAL ONE (13:56)
[2019-09-22] MEDS ORDERED: ESMOLOL HCL 100MG/10ML 10 MG/ML VIAL ONE ×2 (13:56→16:16)
[2019-09-22] MEDS ORDERED: PROPOFOL IV EMULSION 10 MG/ML 20 ML VIAL ONE (13:56)
[2019-09-22] MEDS ORDERED: NALOXONE HCL INJ 0.4 MG/ML AMP ONE (13:56)
[2019-09-22] MEDS ORDERED: PHENYLEPHRINE HCL 1% 10 MG/ML VIAL ONE ×2 (13:56→15:08)
[2019-09-22] MEDS ORDERED: METOPROLOL TARTRATE INJ 1 MG/ML VIAL ONE (13:56)
[2019-09-22] MEDS ORDERED: KETAMINE HCL INJ 50 MG/ML 10 ML VIAL ONE (13:56)
[2019-09-22] MEDS ORDERED: FENTANYL CITRATE/PF 100MCG/2 ML INJ ONE (13:56)
[2019-09-22] MEDS ORDERED: HEPARIN SOD (PORCINE) 5,000 UNIT/ML VIAL ONE (14:43)
[2019-09-22] MEDS ORDERED: HEPARIN SOD/SOD CHLORIDE 1,000 ML ONE (14:44)
[2019-09-22] MEDS ORDERED: SODIUM CHLORIDE 0.9% 100 ML ONE (15:09)
[2019-09-22] MEDS ORDERED: BUPIVACAINE 0.25% 30ML SDV INJ ONE (15:35)
[2019-09-22] MEDS ORDERED: LIDOCAINE HCL 2% LOCAL INJ 5 ML SDV VIAL INJ ONE (15:37)
[2019-09-22] MEDS ORDERED: LIDOCAINE HCL 1% 30ML-PF VIAL ONE (15:38)
[2019-09-22] MEDS ORDERED: NITROGLYCERIN/D5W 200 MCG/ML 250 ML ONE (16:15)
--- NOTE | 2019-09-22 18:03 | Diagnostic Imaging Report ---
EXAMINATION: CHEST SINGLE (PORTABLE) INDICATION: Status post central line placement. COMPARISON: Chest radiograph 09/19/2019. FINDINGS: TUBES and LINES: Left-sided AICD with leads overlying the right atrium and right ventricle. Interval placement of enteric tube which loops and terminates in the gastric fundus. Interval placement of right IJ central venous catheter which terminates in the cavoatrial junction. LUNGS: Lungs are moderately inflated. There is no evidence of pneumonia or pulmonary edema. PLEURA: No pleural effusion or pneumothorax. HEART AND MEDIASTINUM: Cardiac size is mildly enlarged. There are atherosclerotic calcifications within the aorta. BONES AND SOFT TISSUES: No acute osseous abnormality. Status post median sternotomy. UPPER ABDOMEN: No free air under the diaphragm. IMPRESSION: Interval placement of right IJ central venous catheter which terminates in the cavoatrial junction. No evidence of pneumothorax. Interval placement of enteric tube which loops in the stomach and terminates in the gastric fundus. Signed by: Dr. Eliza Moreno MD on 09/22/2019 6:01 PM
--- NOTE | 2019-09-22 20:22 | Consultation ---
DATE OF CONSULTATION: 09/22/2019 HISTORY OF PRESENT ILLNESS: Mr. Bran Brock is known to our Nephrology Service, 78-year-old gentleman, underlying history of CKD 4, was recently at [facility] with worsening kidney function and multiple other issues and serum creatinine improved remarkably. He underwent cysto and retrograde procedure done by Urology at [facility]. This time presented with incarcerated umbilical hernia. Seen by Dr. Vergara. Plans for surgery noted. Today, the patient is awake, alert, looks else mildly short of breath. Denies any abdominal pain though. Just had a Christopher catheter placed good urine output with it. LABORATORY DATA: Show white count 8 and hemoglobin 9.1. Chemistry show sodium 136, potassium 3.9, chloride 93, bicarb 23, BUN 101, and creatinine 4.5. Urinalysis shows specific gravity 1.025, rbc's 6 to 10, wbc more than 50. Abdominal CT pelvis done on the shows no hydronephrosis with a small ventral abdominal hernia containing non-obstructed loop of transverse colon, omental fat. Now, his belly is very distended and on abdominal exam, the hernia does not correlate with the CT findings. The hernia appears worse than what the CT has shown. Nevertheless, chest x-ray initially was negative for any infiltrates or effusions. ALLERGIES: HE HAS NO APPARENT DRUG ALLERGIES. CURRENT MEDICATIONS: The patient on Zofran p.r.n., morphine p.r.n., and metoprolol p.r.n. He is on insulin and diphenhydramine p.r.n. He is on piperacillin-tazobactam 2.25 IV q.8. He is on dextrose with bicarbonate at 80 mL an hour. SOCIAL HISTORY: The patient is , has a very supportive . FAMILY HISTORY: Significant for diabetes. PHYSICAL EXAMINATION: GENERAL: The patient is awake, alert, and oriented, lying down, in no apparent distress. He is mildly short of breath, tachypneic. VITAL SIGNS: Blood pressure is 112/85, pulse rate 125, and respiratory rate 22. HEAD AND NECK: Cornea clear. Oral mucosa dry. An NG tube present. LUNGS: Rhonchi, end expiratory, left lower zone. Right lung field clear. HEART: S1 and S2 audible. ABDOMEN: Quite distended, definitely a firm mass, which is the hernia, mostly supraumbilical area, quite prominent. Did not do any deep palpation. EXTREMITIES: Lower extremity examination shows 1+ pretibial edema. IMPRESSION AND PLAN: [id number]-[id number] kidney failure, underlying chronic kidney disease 4, diabetes, and diabetic kidney disease. Initial urinalysis shows fairly concentrated urine. Currently on IV bicarbonate for acidosis. Worsening creatinine noted. Christopher catheter just placed, that is a good option. I agree with that. We need to decompress the urinary bladder. Continue with IV bicarbonate. I would recommend to proceed with surgery today if possible and I will discuss with Dr. Vergara to have a temporary dialysis catheter placed, just in case he may need dialysis. Currently, no acute indications. Discussed with the patient. Agree with antibiotics. Please see orders. MD CHU Chahal/WESTON /[id number]
[2019-09-22] MEDS: INSULIN GLARGINE 100 UNITS/ML VIAL SQ SCH (21:00)
--- NOTE | 2019-09-22 21:58 | Operative Report ---
DATE OF PROCEDURE: 09/22/2019 SURGEON: Jose Vergara MD PREOPERATIVE DIAGNOSIS: Incarcerated umbilical hernia. POSTOPERATIVE DIAGNOSIS: Incarcerated umbilical hernia. PROCEDURE: Repair of incarcerated umbilical hernia. ANESTHESIA: Monitored sedation. INDICATION: A 78-year-old male with several-day history of abdominal pain and vomiting with CT scan showing incarcerated hernia with obstruction. The patient has consented for repair under anesthesia with all attendant risks discussed including bleeding, infection, and . PROCEDURE FINDINGS: Incarcerated loops of bowel and omentum in the hernia sac. DESCRIPTION OF PROCEDURE: The patient was brought to the OR and given IV conscious sedation. Abdomen prepped with alcohol and draped in sterile fashion. Local anesthesia, 1% lidocaine with 0.25% bupivacaine was injected into the skin and subcu tissue at the intended incisions, which were then made in a curvilinear fashion above the umbilicus extending through subcu tissue down to the hernia sac, which was then opened, incarcerated omentum and loops of bowel encountered. Excess hernia sac was trimmed at the fascial edge. The fascial defect approximately 3 to 4 cm in diameter. It was enlarged laterally for another centimeters in order to reduce the incarcerating structure of small bowel, partial omentectomy was carried out to facilitate reduction. After the small bowel has been reduced intraperitoneally, it was noted to be viable. The fascial edge was then freshened up circumferentially by taking away excess hernia sac. The patient has a smaller umbilical hernia in the mid point of the umbilicus. However, due to the patient's overall high risk conditions, umbilical hernia with incarcerated omentum just below with no risks for incarceration and we proceeded to close the main fascial defect in a transverse direction with [id number] stitch using #1 Prolene suture. The subcutaneous tissue was approximated with 3-0 Vicryl. Skin was closed with cleveland. The patient tolerated the procedure well and transported in critical condition to ICU. BLOOD LOSS: Approximately 30 mL. Jose Vergara MD DNL/MODL /[id number]
[2019-09-23] VITALS (18 sets, daily range): BP systolic 55–125; BP diastolic 44–79
[2019-09-23] MEDS: INSULIN LISPRO 100 UNIT/1 ML 3ML VIAL SQ SCH ×5 (00:13→22:18)
[2019-09-23] MEDS: LEVALBUTEROL HCL SOLN NEBU 1.25 MG/3 ML NEB INH SCH ×4 (01:00→19:00)
[2019-09-23] MEDS: IPRATROPIUM BROMIDE 0.02% 2.5 ML NEB NEB SCH ×4 (01:00→19:00)
[2019-09-23] MEDS: METOPROLOL TARTRATE INJ 1 MG/ML VIAL IV SCH ×3 (01:00→07:00)
[2019-09-23] MEDS: PIPERACILLIN/TAZO 2.25 GM 50 ML IV SCH ×2 (05:30→14:00)
[2019-09-23 06:10] LABS: ALBUMIN 2.1 g/dL (3.5-5.0); ALBUMIN/GLOBULIN RATIO 0.6 (0.8-2.0); ANION GAP 17.2 mmol/L (8-16); CALCIUM 8.1 mg/dL (8.4-10.2); CREATININE, SERUM 5.54 mg/dL (0.72-1.25); POTASSIUM 3.2 mmol/L (3.5-5.1)
[2019-09-23] MEDS: BUDESONIDE/FORMOTEROL 160/4.5MCG INHALER INH SCH ×2 (07:00→19:00)
[2019-09-23] MEDS ORDERED: LIDOCAINE HCL 1% LOCAL INJ 20 ML VIAL ONE (11:40)
[2019-09-23] MEDS ORDERED: METOPROLOL TARTRATE 25 MG TAB PO ONE (11:45)
[2019-09-23] MEDS: DEXTROSE 5%/0.45% SOD CHL 1,000 ML IV SCH ×2 (15:00→22:30)
--- NOTE | 2019-09-23 15:44 | NUR ---
PT ARRIVED VIA BED FROM ICU, AA&OX3, RA, PT MADE AWARE OF NPO STATUS PENDING DIALYSIS CATH PLACEMENT, PT AND FAMILY VERBALIZED UNDERSTANDING , CALL LIGHT WITHIN REACH
[2019-09-23] MEDS: METOPROLOL TARTRATE 25 MG TAB PO SCH (17:00)
--- NOTE | 2019-09-23 17:21 | NUR ---
PT WHEELED OFF UNIT VIA BED FOR DIALYSIS LINE PLACEMENT, NO CHANGE IN CONDITION, FAMILY AT SIDE
--- NOTE | 2019-09-23 18:55 | NUR ---
BACK IN ROOM VIA BED, AA&OX3, RA, DIALYSIS CATH INTACT TO R SIDE OF NECK, PT DENIES PAIN A THIS TIME, CALL LIGHT WITHIN REACH
--- NOTE | 2019-09-23 19:00 | NUR ---
RECEIVED PATIENT IN BEDSIDE SHIFT REPORT. PATIENT A&OX3, RESTING IN BED AT THIS TIME. NO PAIN REPORTED. NO S&S OF DISTRESS NOTED. NEW R IJ TRIALYSIS CATHETER NOTED, DRESSING C/D/I. L HAND 20G IV ASYMPTOMATIC, INTACT, AND PATENT. ABDOMINAL SURGICAL DRESSING C/D/I. NUGENT DRAINING LIGHT JULIANA URINE TO GRAVITY, BAG HANGING ON SIDE OF BED, OFF OF FLOOR. FAMILY MEMBER AT BEDSIDE. PATIENT IS D/T HAVE STAT DIALYSIS, DIALYSIS NOTIFIED, REPORTED THEY WOULD BE HERE IN ABOUT 2 HOURS. BED LOCKED IN LOWEST POSITION, SIDE RAILS UPX2, CALL LIGHT IN REACH.
[2019-09-23] MEDS: INSULIN GLARGINE 100 UNITS/ML VIAL SQ SCH (22:18)
[2019-09-23] MEDS ORDERED: MANNITOL 25% 12.5GM/50ML 100 ML ONE (22:20)
[2019-09-24] VITALS (8 sets, daily range): BP systolic 92–115; BP diastolic 56–91
--- NOTE | 2019-09-24 00:39 | NUR ---
DIALYSIS COMPLETE AT THIS TIME. NO FLUID REMOVED PER DIALYSIS NURSE D/T LOW BLOOD PRESSURE. WILL CONTINUE TO MONITOR.
[2019-09-24] MEDS: PIPERACILLIN/TAZO 2.25 GM 50 ML IV SCH ×4 (00:52→23:07)
[2019-09-24] MEDS: LEVALBUTEROL HCL SOLN NEBU 1.25 MG/3 ML NEB INH SCH ×4 (01:00→19:00)
[2019-09-24] MEDS: IPRATROPIUM BROMIDE 0.02% 2.5 ML NEB NEB SCH ×4 (01:00→19:00)
[2019-09-24 06:48] LABS: ALBUMIN 1.9 g/dL (3.5-5.0); ALBUMIN/GLOBULIN RATIO 0.6 (0.8-2.0); ANION GAP 16.5 mmol/L (8-16); CALCIUM 7.6 mg/dL (8.4-10.2); CREATININE, SERUM 4.67 mg/dL (0.72-1.25); POTASSIUM 3.5 mmol/L (3.5-5.1)
[2019-09-24] MEDS: BUDESONIDE/FORMOTEROL 160/4.5MCG INHALER INH SCH ×2 (07:00→19:00)
--- NOTE | 2019-09-24 07:10 | NUR ---
RCD PT AT BED PT IS ALERT AND ORIENTED RESTING ON BED NO SIGNS OF ANY DISTRESS NOTED IV PATENT BED LOW AND LOCKED CALL LIGHT IN REACH
[2019-09-24] MEDS: INSULIN LISPRO 100 UNIT/1 ML 3ML VIAL SQ SCH ×4 (07:30→20:02)
[2019-09-24] MEDS: METOPROLOL TARTRATE 25 MG TAB PO SCH (09:00)
[2019-09-24] MEDS ORDERED: ISOSORBIDE MONONITRATE 30 MG TAB CR PO SCH (09:00)
[2019-09-24] MEDS ORDERED: EPINEPHRINE HCL SYRINGE ONE (13:43)
[2019-09-24] MEDS: BUMETANIDE INJ 0.25MG/ML 4ML VIAL IV SCH ×2 (15:07→23:07)
--- NOTE | 2019-09-24 15:47 | Diagnostic Imaging Report ---
EXAM: ABDOMEN-1VIEW (KUB) DATE: 09/24/2019 9:59 AM INDICATION: Postop emesis COMPARISON: CT abdomen/pelvis from 09/19/2019 FINDINGS: The diffusely distended, air-filled loops of small bowel are identified throughout the abdomen and pelvis measuring up to 4.9 cm in caliber. No abnormal intra-abdominal calcification is identified. Overlying skin cleveland noted. No acute osseous abnormality identified. IMPRESSION: Diffusely distended, air-filled loops of small bowel suggestive of ileus versus bowel obstruction. Signed by: Dr. Morales Avila MD on 09/24/2019 3:44 PM
--- NOTE | 2019-09-24 15:55 | NUR ---
DIALYSIS DONE AND REMOVED 2 LTRS
--- NOTE | 2019-09-24 16:00 | NUR ---
PABLO NUGENT BY ORDER
--- NOTE | 2019-09-24 17:32 | NUR ---
Nutrition Intervention Note RD Recommendation(s) for Physician: -Recommend to continue GI soft diet at this time as tolerated -Nepro BID for added nutrition Plan of Care: RD following, monitoring for tolerance and adequacy Nutrition reason for involvement: Length of stay and NPO/clear liquid diet for > [address] Assessment (09/24/19) Pt is a 78 year old male admitted with abdominal pain, cellulitis of abdominal wall, incarcerated hernia, non-STEMI, renal insufficiency, and SBO. Pt had repair of umbilical hernia on 09/21. Pt was receiving dialysis at time of visit and RD mainly spoke to family member at bedside. Pt had been on an NPO/clear liquid diet for > 4 days (since 09/18). Pt was advanced to a GI soft diet today. Family member reported pt consumed 25% of breakfast this morning and had vomited. Pt was interested in a nutrition supplement. Prior to admission, family member reported pt ate >50% of his meals. Pts weight usually fluctuates due to fluid and pt usually weighs 186 lbs without excess fluid per family member. Pt currently has a weight of 207 lbs in chart. Will continue to monitor. Principal Problems/Diagnoses: abdominal pain, cellulitis of abdominal wall, incarcerated hernia, non-STEMI, renal insufficiency, and SBO PMH: afib, CKD, dyslipidemia, enlarged prostate, CAD with history of coronary artery bypass graft, anticoagulant therapy for afib, CHF, and diabetes I/O: 600/250 GI: soft, round, tender abdomen, flatus present Skin: no pressure ulcers Labs: (09/24/19) Na 135, BUN 76, Creat 4.67. Glu 128, Ca 7.6 Meds: bumetanide, piperacillin/tazobactam, zofran, insulin, heparin, hydralazine Ht: 67 inches Wt: 207.5 lbs BMI: 32.5 kg/m2 IBW: 148 lbs Malnutrition Evaluation (09/24/2019) The patient does not meet criteria for a specified degree of malnutrition at this time. Will re-evaluate at follow-up as appropriate. Nutrition Prescription (Diet Order): GI soft diet Estimated Nutritional Needs: 1928-2192 calories/day (22-25 kcal/kg IBW) 81-101 g protein/day (1.2-1.5 g pro/kg IBW) Diet Adequacy: Not meeting calorie needs, Not meeting protein needs Tolerance: Family member reported that pt vomited this morning Diet Education Needs Assessment: RD is available for diet education as needed Nutrition Care Level: moderate Nutrition Diagnosis: Inadequate energy intake related to decreased ability to consume sufficient energy as evidenced pt being on NPO/clear liquid diet for > 4 days. Goal: Patient will meet 75-100% of estimated needs by follow up Progress: N/A Interventions: -fiber modified diet, Commercial beverage Monitoring/Evaluation: -Total energy intake, Total protein intake, Modified diet, Liquid supplement, Weight change Signed: Yola Marion RD, LD
--- NOTE | 2019-09-24 18:42 | NUR ---
PT RESTING ON BED BED SIDE REPORT GIVEN TO ONCOMING NURSE
--- NOTE | 2019-09-24 19:00 | NUR ---
RECEIVED PATIENT IN BEDSIDE SHIFT REPORT. PATIENT RESTING IN BED AT THIS TIME. NO PAIN REPORTED. NO S&S OF DISTRESS NOTED. PATIENT IS DUE TO VOID, STRICT I&O, PATIENT VERBALIZED UNDERSTANDING. FAMILY MEMBER AT BEDSIDE. BED LOCKED IN LOWEST POSITION, SIDE RAILS UPX2, CALL LIGHT IN REACH.
--- NOTE | 2019-09-24 19:02 | NUR ---
PAGED DR TABARES TO NOTIFY THE XRAY REPORT
--- NOTE | 2019-09-24 19:35 | NUR ---
READ KUB RESULTS TO MD TABARES, COVERING FOR MD WAGNER. RESULTS SHOWED ILEUS, NEW ORDERS TO MAKE PATIENT NPO, MD WILL ASSESS PATIENT IN AM. EXPLAINED NEW ORDER TO PATIENT AND FAMILY, VERBALIZED UNDERSTANDING.
[2019-09-24] MEDS: INSULIN GLARGINE 100 UNITS/ML VIAL SQ SCH (20:03)
--- NOTE | 2019-09-24 20:30 | NUR ---
PER MD ANDERSON, COVERING FOR MD DOAN, CAN USE TRIALYSIS CATHETER FOR IV HYDRATION.
[2019-09-25] VITALS (19 sets, daily range): BP systolic 90–123; BP diastolic 57–86
[2019-09-25] MEDS: LEVALBUTEROL HCL SOLN NEBU 1.25 MG/3 ML NEB INH SCH ×4 (01:00→19:00)
[2019-09-25] MEDS: IPRATROPIUM BROMIDE 0.02% 2.5 ML NEB NEB SCH ×4 (01:00→19:00)
--- NOTE | 2019-09-25 04:55 | NUR ---
PATIENT REPORTS HE ATTEMPTED TO URINATE AND WAS UNABLE TO. BLADDER SCAN SHOWED 237ML. PATIENT REPORTS HE WANTS TO KEEP TRYING, THE URGE IS NOT VERY STRONG. WILL REASSESS BEFORE SHIFT CHANGE AND INFORM MD.
[2019-09-25 05:43] LABS: BASOPHILS % 0.2 % (0.0-1.0); EOSINOPHILS # (AUTO) 0.2 (0.0-0.4); EOSINOPHILS % 1.8 % (0.0-6.0); HEMATOCRIT 27.9 % (38.2-49.6); HEMOGLOBIN 8.5 g/dL (14.0-18.0); LYMPHOCYTES # (AUTO) 1.7 (1.0-3.2); LYMPHOCYTES % 19.5 % (18.0-39.1); MEAN CORPUSCULAR HEMOGLOBIN 28.8 pg (28-32); MEAN CORPUSCULAR HGB CONC 30.5 g/dL (31-35); MEAN CORPUSCULAR VOLUME 94.6 fL (81-99); MONOCYTES # (AUTO) 1.3 (0.2-0.8); MONOCYTES % 15.5 % (4.4-11.3); NEUTROPHILS # (AUTO) 5.3 (2.1-6.9); NEUTROPHILS % 61.8 % (38.7-80.0); PLATELET COUNT 189 x10e3/uL (140-360); RED BLOOD COUNT 2.95 x10e6/uL (4.3-5.7); RED CELL DISTRIBUTION WIDTH 17.2 % (11.7-14.4)
[2019-09-25] MEDS: PIPERACILLIN/TAZO 2.25 GM 50 ML IV SCH ×3 (06:14→23:06)
[2019-09-25] MEDS: BUMETANIDE INJ 0.25MG/ML 4ML VIAL IV SCH ×3 (06:30→23:06)
[2019-09-25 06:37] LABS: ALBUMIN/GLOBULIN RATIO 0.6 (0.8-2.0); ALKALINE PHOSPHATASE 71 IU/L (40-150); ANION GAP 14.8 mmol/L (8-16); BLOOD UREA NITROGEN 48 mg/dL (7-26); BUN/CREATININE RATIO 12 (6-25); CALCIUM 7.8 mg/dL (8.4-10.2); CARBON DIOXIDE 26 mmol/L (22-29); CHLORIDE 97 mmol/L (98-107); CREATININE, SERUM 4.12 mg/dL (0.72-1.25); EST GLOMERULAR FILTRATION RATE 14 ML/MIN (60-); GLUCOSE 176 mg/dL (74-118); POTASSIUM 3.8 mmol/L (3.5-5.1); SODIUM 134 mmol/L (136-145)
--- NOTE | 2019-09-25 06:37 | NUR ---
BLADDER SCANNED PATIENT AT THIS TIME, ONLY SAW 116ML AFTER MULTIPLE TRIES. PATIENT STATES HE DID NOT URINATE SINCE LAST BLADDER SCAN OF 237ML. PATIENT HAS NOT VOIDED SINCE NUGENT REMOVED. SPOKE WITH MD Demetra CULLEN AT THIS TIME, NEW ORDER RECEIVED TO PUT IN A NEW 18F COUDE CATHETER, AND TO ENSURE THAT NO ONE TAKES OUT A NUGENT UNLESS THE ORDER COMES DIRECTLY FROM HIM.
[2019-09-25 06:41] LABS: ALANINE AMINOTRANSFERASE < 6 IU/L (0-55)
[2019-09-25] MEDS: BUDESONIDE/FORMOTEROL 160/4.5MCG INHALER INH SCH ×2 (07:00→19:00)
[2019-09-25 07:04] LABS: BAND NEUTROPHILS % (MANUAL) 1 %; EOSINOPHILS % (MANUAL) 3 % (0-7); LYMPHOCYTES % (MANUAL) 19 % (19-48); MONOCYTES % (MANUAL) 9 % (3.4-9.0); NEUTROPHILS % (MANUAL) 68 % (40-74); NUCLEATED RED BLOOD CELLS 1
[2019-09-25 07:05] LABS: ANISOCYTOSIS SLIGHT; PLATELET ESTIMATE ADEQUATE; POLYCHROMASIA FEW; RBC MORPHOLOGY COMMENT NORMAL
[2019-09-25 07:06] LABS: PLATELET MORPHOLOGY COMMENT NORMAL
--- NOTE | 2019-09-25 07:17 | NUR ---
ROSIO ADAMS CONCERNING PATIENT'S RUN OF VTACH THIS MORNING, DURING PATIENT'S BLADDER SCAN, WHICH CAUSED PATIENT ANXIETY. AWAITING CALL BACK, DAY SHIFT NURSE AWARE OF PAGE. PATIENT IS ASYMPTOMATIC.
[2019-09-25] MEDS: INSULIN LISPRO 100 UNIT/1 ML 3ML VIAL SQ SCH ×4 (07:30→20:20)
[2019-09-25] MEDS ORDERED: NITROGLYCERIN 0.4 MG SUBL SL PRN (08:30)
--- NOTE | 2019-09-25 08:39 | NUR ---
Call to Dr. Whiteside and orders to transfer patient to ICU for administration of amiodarone drip. Patient with Afib and also complaining of some chest pressure. Report given to ICU nurse.
[2019-09-25] MEDS: ISOSORBIDE MONONITRATE 30 MG TAB CR PO SCH (09:00)
[2019-09-25] MEDS: METOPROLOL TARTRATE 25 MG TAB PO SCH ×2 (09:00→20:19)
[2019-09-25] MEDS: ALLOPURINOL 100 MG TAB PO SCH ×2 (09:00→17:00)
[2019-09-25] MEDS: PANTOPRAZOLE SOD 40 MG TABEC PO SCH (09:00)
[2019-09-25] MEDS: RANOLAZINE 500 MG TABSR PO SCH ×2 (09:00→17:00)
[2019-09-25] MEDS: FAMOTIDINE 20 MG TAB PO SCH (09:00)
[2019-09-25] MEDS ORDERED: AMIODARONE HCL 150MG 100 ML IV ONE (09:20)
--- NOTE | 2019-09-25 09:20 | Diagnostic Imaging Report ---
PROCEDURE: Non-tunneled central venous catheter placement Procedural Personnel Attending physician(s): Dolores Cherry MD Fellow physician(s): None Resident physician(s): None Advanced practice provider(s): None Pre-procedure diagnosis: Acute kidney injury Post-procedure diagnosis: Same Indication: Performance of hemodialysis Additional clinical history: None Complications: No immediate complications. IMPRESSION: Insertion of right-sided non-tunneled triple-lumen temporary dialysis catheter, with tip in the expected location of the superior vena cava. Plan: The catheter may be used immediately. PROCEDURE SUMMARY: - Venous access with ultrasound guidance - Non-tunneled central venous catheter insertion with fluoroscopic guidance - Additional procedure(s): None PROCEDURE DETAILS: Pre-procedure Consent: Informed consent for the procedure including risks, benefits and alternatives was obtained and time-out was performed prior to the procedure. Preparation (MIPS): The site was prepared and draped using all elements of maximal sterile barrier technique including sterile gloves, sterile gown, cap, mask, large sterile sheet, sterile ultrasound probe cover, hand hygiene and cutaneous antisepsis with 2% chlorhexidine. Medical reason for site preparation exception (MIPS): Not applicable Anesthesia/sedation Level of anesthesia/sedation: No sedation Access Local anesthesia was administered. The indwelling triple lumen central venous catheter was removed over a wire. Vein accessed: Internal jugular vein Access technique: Existing access Catheter placement The access site was dilated and the catheter was placed into the vein over a wire under fluoroscopic guidance. The catheter tip location was fluoroscopically verified and a permanent image was stored.. A sterile dressing was applied. Catheter placed: Bard Power Trialysis Catheter size (Mongolian): 13 Catheter length (cm): 15 Catheter flush: Normal saline Catheter securement technique: Non-absorbable suture Contrast Contrast agent: None Contrast volume (mL): N/A Radiation Dose Fluoroscopy time (minutes): 0.2 Reference air kerma (mGy): 1.8 Additional Details Additional description of procedure: None Equipment details: None Specimens removed: None Estimated blood loss (mL): Less than 10 Standardized report: [id number] Attestation Signer name: Dolores Cherry MD I attest that I was present for the entire procedure. I reviewed the stored images and agree with the report as written. Signed by: Dolores Cherry MD on 09/25/2019 9:17 AM
[2019-09-25] MEDS ORDERED: AMIODARONE HCL 900 MG in DEXTROSE 5% 500ML 500 ML IV SCH (09:30)
--- NOTE | 2019-09-25 09:32 | NUR ---
Patient transferred to ICU this morning and requiring higher level of care. Due to change in status, will need new physical therapy orders to resume care when patient medically stable. Thank you. Addendum: 09/25/19 at 0932 by BRENDA JENSEN PT Amended: Links added.
[2019-09-25] MEDS ORDERED: ALBUMIN 25% 12.5GM 0.25 GM/ML BTL IV PRN (15:30)
[2019-09-25] MEDS ORDERED: HEPARIN SOD (PORCINE) 1000 UNIT/ML SDV IV PRN (15:30)
[2019-09-25] MEDS ORDERED: SODIUM CHLORIDE 0.9% 1000ML 2,000 ML IV PRN (15:30)
[2019-09-25] MEDS: RIVAROXABAN 10 MG TABLET PO SCH (17:00)
--- NOTE | 2019-09-25 17:10 | Diagnostic Imaging Report ---
Exam: KUB - 2 views Indication: NG tube placement Comparison: KUB of 09/24/2019 Findings: NG tube tube terminates in the stomach. Again seen are multiple loops of dilated small bowel which measure up to 4.5 cm maximum diameter. Surgical skin cleveland over the lower abdomen. Impression: NG tube terminates in the stomach. Unchanged appearance of dilated loops of small bowel consistent with small bowel obstruction. Signed by: Dolores Cherry MD on 09/25/2019 5:07 PM
--- NOTE | 2019-09-25 19:00 | NUR ---
Bedside report received from Monalisa Amato RN. Pt receiving dialysis at this time. VSS to pt (refer to vital signs spreadsheet). Pts family member is at the bedside. Care plan reviewed. Bed in lowest and locked position, call light in reach of the pt. Pt reports no pain at this time. Pt on room air with rr 22, SPO2% 100% with no signs of distress noted at this time.
[2019-09-25] MEDS: INSULIN GLARGINE 100 UNITS/ML VIAL SQ SCH (20:20)
[2019-09-26] VITALS (25 sets, daily range): BP systolic 91–131; BP diastolic 53–89
[2019-09-26] MEDS: IPRATROPIUM BROMIDE 0.02% 2.5 ML NEB NEB SCH ×4 (01:00→19:20)
[2019-09-26] MEDS: LEVALBUTEROL HCL SOLN NEBU 1.25 MG/3 ML NEB INH SCH ×4 (01:00→19:20)
[2019-09-26] MEDS: PIPERACILLIN/TAZO 2.25 GM 50 ML IV SCH ×3 (05:27→21:44)
[2019-09-26] MEDS: BUMETANIDE INJ 0.25MG/ML 4ML VIAL IV SCH ×3 (05:27→21:44)
[2019-09-26 05:35] LABS: ALBUMIN 2.2 g/dL (3.5-5.0); ALBUMIN/GLOBULIN RATIO 0.6 (0.8-2.0); ALKALINE PHOSPHATASE 86 IU/L (40-150); ANION GAP 15.4 mmol/L (8-16); BLOOD UREA NITROGEN 28 mg/dL (7-26); BUN/CREATININE RATIO 9 (6-25); CALCIUM 8.5 mg/dL (8.4-10.2); CARBON DIOXIDE 26 mmol/L (22-29); CHLORIDE 100 mmol/L (98-107); CREATININE, SERUM 3.29 mg/dL (0.72-1.25); EST GLOMERULAR FILTRATION RATE 18 ML/MIN (60-); GLUCOSE 200 mg/dL (74-118); MAGNESIUM 1.9 MG/DL (1.3-2.1); POTASSIUM 4.4 mmol/L (3.5-5.1); SODIUM 137 mmol/L (136-145)
[2019-09-26 05:43] LABS: ALANINE AMINOTRANSFERASE < 6 IU/L (0-55)
[2019-09-26] MEDS: BUDESONIDE/FORMOTEROL 160/4.5MCG INHALER INH SCH ×2 (07:00→19:00)
[2019-09-26] MEDS: INSULIN LISPRO 100 UNIT/1 ML 3ML VIAL SQ SCH ×4 (07:30→20:21)
[2019-09-26] MEDS: PANTOPRAZOLE SOD 40 MG TABEC PO SCH (08:35)
[2019-09-26] MEDS: AMIODARONE HCL 200 MG TAB PO SCH ×2 (09:01→17:13)
[2019-09-26] MEDS: ISOSORBIDE MONONITRATE 30 MG TAB CR PO SCH (09:02)
[2019-09-26] MEDS: METOPROLOL TARTRATE 25 MG TAB PO SCH ×2 (09:02→20:22)
[2019-09-26] MEDS: FAMOTIDINE 20 MG TAB PO SCH (09:03)
[2019-09-26] MEDS: ALLOPURINOL 100 MG TAB PO SCH ×2 (09:03→17:13)
[2019-09-26] MEDS: RANOLAZINE 500 MG TABSR PO SCH ×2 (09:03→17:13)
[2019-09-26] MEDS: DEXTROSE 5%/0.45% SOD CHL 1,000 ML IV SCH (11:04)
[2019-09-26] MEDS: RIVAROXABAN 10 MG TABLET PO SCH (17:13)
--- NOTE | 2019-09-26 17:17 | Diagnostic Imaging Report ---
Abdomen/KUB INDICATION: Abdominal pain, ileus ^ileus ^[id number] ^1643 ^Y COMPARISON: Abdomen x-ray 09/25/2019. FINDINGS: Portable, supine image obtained at 1653 hours. Medical Devices: Midline abdominal wall cleveland are redemonstrated. An enteric tube in the stomach is partially visualized. Bowel: Dilated small bowel loops are redemonstrated measuring up to 4.7 cm (previously, 4.5 cm). Small amount of air in the rectum. No pneumatosis. Free air: None Abdominal calcifications: None over the renal shadows or along the expected course of the ureters Organomegaly: None Bones: Stable IMPRESSION: No significant change in dilated small bowel suggestive of severe postoperative ileus or obstruction. Signed by: Dr. Lily Gutiérrez MD on 09/26/2019 5:14 PM
[2019-09-26] MEDS: INSULIN GLARGINE 100 UNITS/ML VIAL SQ SCH (20:21)
[2019-09-27] VITALS (25 sets, daily range): BP systolic 77–111; BP diastolic 44–81
[2019-09-27] MEDS: IPRATROPIUM BROMIDE 0.02% 2.5 ML NEB NEB SCH ×4 (02:25→19:55)
[2019-09-27] MEDS: LEVALBUTEROL HCL SOLN NEBU 1.25 MG/3 ML NEB INH SCH ×4 (02:25→19:55)
[2019-09-27] MEDS: PIPERACILLIN/TAZO 2.25 GM 50 ML IV SCH ×3 (06:51→22:00)
[2019-09-27] MEDS: BUMETANIDE INJ 0.25MG/ML 4ML VIAL IV SCH ×3 (06:51→22:00)
[2019-09-27] MEDS: BUDESONIDE/FORMOTEROL 160/4.5MCG INHALER INH SCH ×2 (07:00→19:55)
[2019-09-27] MEDS: INSULIN LISPRO 100 UNIT/1 ML 3ML VIAL SQ SCH ×4 (07:30→21:00)
[2019-09-27] MEDS: AMIODARONE HCL 200 MG TAB PO SCH ×2 (08:53→16:08)
[2019-09-27] MEDS: ISOSORBIDE MONONITRATE 30 MG TAB CR PO SCH (08:54)
[2019-09-27] MEDS: ALLOPURINOL 100 MG TAB PO SCH ×2 (08:54→16:08)
[2019-09-27] MEDS: RANOLAZINE 500 MG TABSR PO SCH ×2 (08:54→16:08)
[2019-09-27] MEDS: PANTOPRAZOLE SOD 40 MG TABEC PO SCH (08:54)
[2019-09-27] MEDS: FAMOTIDINE 20 MG TAB PO SCH (08:54)
[2019-09-27] MEDS: METOPROLOL TARTRATE 25 MG TAB PO SCH ×3 (08:54→23:00)
--- NOTE | 2019-09-27 09:19 | Diagnostic Imaging Report ---
Exam: KUB - 2 views Indication: Small bowel obstruction Comparison: KUB of 09/26/2019 Findings: Again seen are loops of dilated small bowel in the mid abdomen which now measure up to 5.0 cm maximum diameter. No free air. Surgical skin cleveland across the lower abdomen. No acute osseous injury. Degenerative changes of the visualized spine. Impression: No significant interval change in dilated small bowel loops compatible with clinical diagnosis of small bowel obstruction. Signed by: Dolores Cherry MD on 09/27/2019 9:16 AM
[2019-09-27] MEDS: DEXTROSE 5%/0.45% SOD CHL 1,000 ML IV SCH (10:00)
[2019-09-27] MEDS: RIVAROXABAN 10 MG TABLET PO SCH (16:08)
--- NOTE | 2019-09-27 16:22 | Diagnostic Imaging Report ---
EXAM: CT Abdomen WITHOUT intravenous contrast INDICATION: Small bowel obstruction COMPARISON: Multiple prior KUBs most recently from earlier the same day, CT abdomen and pelvis of 09/19/2019 TECHNIQUE: The abdomen was scanned utilizing a multidetector helical scanner from the lung base to the iliac crest without administration of IV contrast. Coronal and sagittal reformations were obtained. Routine protocol was performed. IV CONTRAST: None ORAL CONTRAST: Water RADIATION DOSE: Total DLP: 467 mGy*cm Dose modulation, iterative reconstruction, and/or weight based adjustment of the mA/kV was utilized to reduce the radiation dose to as low as reasonably achievable. FINDINGS: LOWER THORAX: Trace right pleural effusion. No lung base consolidation. Multichamber cardiomegaly. Atherosclerotic coronary artery calcifications. HEPATOBILIARY: No focal liver lesions. Unremarkable gallbladder. SPLEEN: No splenomegaly. PANCREAS: No focal masses or ductal dilatation. ADRENALS: No adrenal nodules. KIDNEYS/URETERS: No hydronephrosis or renal calculi. 3.1 cm posterior left midpole simple renal cyst. PERITONEUM / RETROPERITONEUM: Trace abdominal ascites, new compared to the prior CT. LYMPH NODES: No lymphadenopathy. VESSELS: Moderate atherosclerotic calcifications of the nonaneurysmal abdominal aorta and major branches. GI TRACT: NG tube terminates in the horizontal portion of the duodenum. There are multiple loops of persistently dilated small bowel which measure up to 4.2 cm maximum diameter. BONES AND SOFT TISSUES: Status post laparotomy and reduction of previously seen herniated loop of small bowel. There is a 6.5 x 2.0 cm collection in the superficial subcutaneous soft tissues underneath the staple line containing an air-fluid level. Apparent persistent anterior abdominal wall defect with herniated fat (series 2 image 54). Degenerative changes of the visualized spine. No acute osseous injury. IMPRESSION: Persistently dilated loops of small bowel with air-fluid levels, suggestive of ileus versus obstruction. No transition point identified. Previously herniated loop of small bowel has been reduced following laparotomy. 6.5 x 2.0 cm postoperative superficial subcutaneous fluid collection containing an air-fluid level. Apparent persistent anterior abdominal wall defect with herniated fat. New trace ascites. Trace right pleural effusion. Signed by: Dolores Cherry MD on 09/27/2019 4:19 PM
--- NOTE | 2019-09-27 18:50 | NUR ---
NOTIFIED MD ROQUE REGARDING CT RESULTS NO ORDERS RECEIVED
[2019-09-27] MEDS: INSULIN GLARGINE 100 UNITS/ML VIAL SQ SCH (21:00)
[2019-09-28] VITALS (24 sets, daily range): BP systolic 84–112; BP diastolic 53–96
--- NOTE | 2019-09-28 01:00 | NUR ---
Patient had a bowel movement well formed, cleaned and repositioned fo comfort
[2019-09-28] MEDS: LEVALBUTEROL HCL SOLN NEBU 1.25 MG/3 ML NEB INH SCH ×4 (01:07→19:05)
[2019-09-28] MEDS: IPRATROPIUM BROMIDE 0.02% 2.5 ML NEB NEB SCH ×4 (01:07→19:05)
[2019-09-28 05:08] LABS: BASOPHILS % 0.3 % (0.0-1.0); EOSINOPHILS # (AUTO) 0.1 (0.0-0.4); HEMATOCRIT 27.6 % (38.2-49.6); HEMOGLOBIN 8.5 g/dL (14.0-18.0); LYMPHOCYTES # (AUTO) 1.4 (1.0-3.2); LYMPHOCYTES % 12.5 % (18.0-39.1); MEAN CORPUSCULAR HEMOGLOBIN 29.5 pg (28-32); MEAN CORPUSCULAR HGB CONC 30.8 g/dL (31-35); MEAN CORPUSCULAR VOLUME 95.8 fL (81-99); MONOCYTES # (AUTO) 1.2 (0.2-0.8); MONOCYTES % 10.7 % (4.4-11.3); NEUTROPHILS # (AUTO) 8.6 (2.1-6.9); NEUTROPHILS % 74.3 % (38.7-80.0); PLATELET COUNT 224 x10e3/uL (140-360); RED BLOOD COUNT 2.88 x10e6/uL (4.3-5.7); RED CELL DISTRIBUTION WIDTH 18.6 % (11.7-14.4)
[2019-09-28 05:28] LABS: ANION GAP 11.5 mmol/L (8-16); CALCIUM 8.5 mg/dL (8.4-10.2); CREATININE, SERUM 4.4 mg/dL (0.72-1.25); PHOSPHORUS 3.9 MG/DL (2.3-4.7); POTASSIUM 3.5 mmol/L (3.5-5.1)
[2019-09-28] MEDS: PIPERACILLIN/TAZO 2.25 GM 50 ML IV SCH ×3 (06:00→22:00)
[2019-09-28] MEDS: BUMETANIDE INJ 0.25MG/ML 4ML VIAL IV SCH ×3 (06:16→22:00)
[2019-09-28] MEDS: BUDESONIDE/FORMOTEROL 160/4.5MCG INHALER INH SCH ×2 (07:00→19:00)
[2019-09-28] MEDS: INSULIN LISPRO 100 UNIT/1 ML 3ML VIAL SQ SCH ×4 (07:30→21:00)
[2019-09-28] MEDS: METOPROLOL TARTRATE 25 MG TAB PO SCH ×2 (08:00→21:00)
[2019-09-28] MEDS: RANOLAZINE 500 MG TABSR PO SCH ×2 (08:00→16:03)
[2019-09-28] MEDS: ISOSORBIDE MONONITRATE 30 MG TAB CR PO SCH (08:00)
[2019-09-28] MEDS: PANTOPRAZOLE SOD 40 MG TABEC PO SCH (09:00)
[2019-09-28] MEDS: AMIODARONE HCL 200 MG TAB PO SCH ×2 (09:27→16:02)
[2019-09-28] MEDS: ALLOPURINOL 100 MG TAB PO SCH ×2 (09:28→16:03)
[2019-09-28] MEDS: FAMOTIDINE 20 MG TAB PO SCH (09:28)
[2019-09-28] MEDS: DEXTROSE 5%/0.45% SOD CHL 1,000 ML IV SCH (10:00)
--- NOTE | 2019-09-28 13:09 | NUR ---
Nutrition Follow-up Note RD Recommendation(s) for Physician: -Advance diet as tolerated to GI soft/ ADA 1800 -If PO <50%, rec Glucerna BID to promote protein-calorie intake Plan of Care: RD following, monitoring for tolerance and adequacy Nutrition reason for involvement: Follow up RD Assessment: (09/28/19) Following up on this patient. Labs reviewed. Potassium and Phosphorus WNL. CT abdomen on 09/26 showed persistently dilated loops of small bowel with air-fluid levels, suggestive of ileus versus obstruction; previously herniated loop of small bowel has been reduced following laparotomy and new trace ascites. Visited pt in the room. Pt reported improvement in his symptoms. No complain of nausea or vomiting. Pt had a BM this morning. NGT has been removed. NPO x 3 days. Per RN, plan to start diet tomorrow. Will revisit when diet initiated. (09/24/19) Pt is a 78 year old male admitted with abdominal pain, cellulitis of abdominal wall, incarcerated hernia, non-STEMI, renal insufficiency, and SBO. Pt had repair of umbilical hernia on 09/21. Pt was receiving dialysis at time of visit and RD mainly spoke to family member at bedside. Pt had been on an NPO/clear liquid diet for > 4 days (since 09/18). Pt was advanced to a GI soft diet today. Family member reported pt consumed 25% of breakfast this morning and had vomited. Pt was interested in a nutrition supplement. Prior to admission, family member reported pt ate >50% of his meals. Pts weight usually fluctuates due to fluid and pt usually weighs 186 lbs without excess fluid per family member. Pt currently has a weight of 207 lbs in chart. Will continue to monitor. Principal Problems/Diagnoses: abdominal pain, cellulitis of abdominal wall, incarcerated hernia, non-STEMI, renal insufficiency, and SBO PMH: afib, CKD, dyslipidemia, enlarged prostate, CAD with history of coronary artery bypass graft, anticoagulant therapy for afib, CHF, and diabetes I/O: +810ml/ -3071ml GI: soft, round, tender abdomen, flatus present, +BM Skin: no pressure ulcers Labs: (09/28/19) Na 135 L, BUN 33 H, Creatinine 4.4 H (09/24/19) Na 135, BUN 76, Creat 4.67. Glu 128, Ca 7.6 Meds: pepcid, lopressor, imdur, bumetanide Ht: 67 inches Wt: 207.5 lbs; 186lb (suggested fluids loss) BMI: 32.5 kg/m2 IBW: 148 lbs Malnutrition Evaluation (09/24/2019) The patient does not meet criteria for a specified degree of malnutrition at this time. Will re-evaluate at follow-up as appropriate. Nutrition Prescription (Diet Order): NPO Estimated Nutritional Needs: 9503-1097 calories/day (22-25 kcal/kg IBW) 81-101 g protein/day (1.2-1.5 g pro/kg IBW) Diet Adequacy: Not meeting calorie needs, Not meeting protein needs Tolerance: N/A Diet Education Needs Assessment: Not indicated during my time of visit. Nutrition Care Level: moderate Nutrition Diagnosis: Inadequate energy intake related to decreased ability to consume sufficient energy as evidenced pt being on NPO/clear liquid diet for 3 days. Goal: Patient will meet 75-100% of estimated needs by follow up Progress: N/A Interventions: Fiber/ carbohydrate modified diet, Commercial beverage Monitoring/Evaluation: -Total energy intake, Total protein intake, Modified diet, Liquid supplement, Weight change Signed: Susanne Powers, MS, RD, LD
[2019-09-28] MEDS: RIVAROXABAN 10 MG TABLET PO SCH (16:03)
--- NOTE | 2019-09-28 17:17 | Progress Note ---
DATE: 09/28/2019 SUBJECTIVE: Feels okay, status post repair of incarcerated umbilical hernia, started on hemodialysis for ESRD, now has a history of underlying diabetes, hypertension, and urinary tract obstruction. Still some confusion. No hematuria. PHYSICAL EXAMINATION: GENERAL: Lying in bed, somewhat frail. VITAL SIGNS: Blood pressure 91/73, pulse 102, temp 98.2. CHEST: Clear with diminished breath sounds at bases. ABDOMEN: Some distention. Few bowel sounds are heard. EXTREMITIES: No definite edema. NEURO: For the most part reasonable, but at some point at times, he appears to be unable to recollect. LABORATORY DATA: Creatinine is 4.4 going up when he is off dialysis. BUN 33, K is 3.5. ASSESSMENT: 1. Probable end-stage renal disease. 2. Underlying diabetes, hypertension, obstructive uropathy. 3. Status post incarcerated hernia repair. PLAN: Has been dialyzed three days in a row. Hold dialysis for now. Plan to dialyze again on 09/30/2019. MD CHELSEA Jeronimo/[place]ON /[id number]
--- NOTE | 2019-09-28 19:30 | NUR ---
received patient stable, passing loose stool, on close monitoring
[2019-09-28] MEDS: INSULIN GLARGINE 100 UNITS/ML VIAL SQ SCH (21:00)
--- NOTE | 2019-09-28 21:33 | Progress Note ---
DATE: 09/28/2019 Medicine Progress Note I am covering for Dr. Parveen Sandoval. SUBJECTIVE: The patient underwent an abdominal ventral hernia repair, in which he had developed also small-bowel obstruction simultaneously. He was operated on by Dr. Vergara. The patient now has end-stage renal disease, in which Dr. Low, Nephrology is following. He also developed urinary retention, in which Urology was consulted and he will go home with a Christopher catheter on discharge. Today, the patient is doing very well. He is still n.p.o. He started having some flatus today for the first time. No overnight events. PHYSICAL EXAMINATION: VITAL SIGNS: Temperature is 98, pulse 103, respiratory rate is 24, blood pressure was 96/77, and pulse ox 97% on room air. GENERAL: In no acute distress, alert and oriented x3. Cooperative on examination. HEENT: Head, normocephalic, atraumatic. Eyes, pupils are reactive to light bilaterally. Extraocular movements intact bilaterally. Throat, no evidence of erythema or exudates in the posterior pharynx. Has poor dentition NECK: Supple. Good range of motion. PULMONARY: Clear to auscultation bilaterally. No rales or rhonchi. No crackles appreciated. CARDIOVASCULAR: Positive S1, S2. No murmurs, rubs, or gallops. ABDOMEN: Soft, nondistended, and nontender to palpation. Bowel sounds present. MUSCULOSKELETAL: Strength is 5/5 throughout. No evidence of any muscle deficits on examination. No weakness appreciated. NEUROLOGIC: Cranial nerves II through XII grossly intact. No evidence of any neurological deficit on exam. SKIN: Intact. Warm to touch. Good cap refill. PSYCHIATRIC: Normal affect and mood. EXTREMITIES: No edema. Good range of motion throughout. LABORATORY DATA: Labs show white count was 11.5, hemoglobin 8.5, hematocrit 27.6, and platelets of 224. Coagulation, PT 16, INR 1.2, and PTT 58. Chemistry, sodium 135, potassium 3.5, chloride 100, bicarb 27, anion gap 11, BUN 32, creatinine 4.4, glucose is 112, phosphorus 3.9, magnesium 2, and calcium is 8.5. Microbiology, blood and urine cultures were negative. IMAGING STUDIES: The latest imaging studies on 09/27/2019, CT of abdomen and pelvis shows persistently dilated loops of small bowel with air-fluid levels suggestive of ileus versus obstruction small bowel been reduced following laparotomy. A 6.5 x 2 cm postoperative superficial subcutaneous fluid collection containing an air-fluid level. Apparent persistent anterior abdominal wall defect with a herniated fat, new trace ascites, trace right pleural effusion. IMPRESSION: 1. Status post abdominal hernia repair. 2. Small bowel obstruction - resolving. 3. End-stage renal disease, on hemodialysis. 4. Congestive heart failure with systolic dysfunction with an EF of less than 30% with an AICD. 5. Urinary retention with a Christopher catheter. PLAN: At this time, continue with postop care with General Surgery. He still n.p.o., but seems to have a resolving small bowel obstruction. Minimize pain control. As for his renal failure, he is now on dialysis, Dr. Low is following closely and hemodialysis per Nephrology. For his urinary retention, he has a Christopher catheter, likely be discharged with the Christopher. He did have some AFib with RVR, but Cardiology is consulted and they are managing this accordingly. At this time, we will continue to follow very closely. We will get PT, OT involved. He is on Xarelto for DVT prophylaxis. Otherwise, continue same plan of care and monitor closely. MD KEIRY Perez/MODL /[id number]
[2019-09-29] VITALS (21 sets, daily range): BP systolic 81–110; BP diastolic 60–82
[2019-09-29] MEDS: LEVALBUTEROL HCL SOLN NEBU 1.25 MG/3 ML NEB INH SCH ×4 (01:00→19:48)
[2019-09-29] MEDS: IPRATROPIUM BROMIDE 0.02% 2.5 ML NEB NEB SCH ×4 (01:00→19:48)
[2019-09-29 04:57] LABS: BASOPHILS % 0.3 % (0.0-1.0); EOSINOPHILS # (AUTO) 0.1 (0.0-0.4); EOSINOPHILS % 1.2 % (0.0-6.0); HEMATOCRIT 27.9 % (38.2-49.6); HEMOGLOBIN 8.4 g/dL (14.0-18.0); LYMPHOCYTES # (AUTO) 1.4 (1.0-3.2); LYMPHOCYTES % 15.4 % (18.0-39.1); MEAN CORPUSCULAR HEMOGLOBIN 29.4 pg (28-32); MEAN CORPUSCULAR HGB CONC 30.1 g/dL (31-35); MEAN CORPUSCULAR VOLUME 97.6 fL (81-99); MONOCYTES # (AUTO) 1.2 (0.2-0.8); MONOCYTES % 13.2 % (4.4-11.3); NEUTROPHILS # (AUTO) 6.1 (2.1-6.9); NEUTROPHILS % 68.7 % (38.7-80.0); PLATELET COUNT 223 x10e3/uL (140-360); RED BLOOD COUNT 2.86 x10e6/uL (4.3-5.7); RED CELL DISTRIBUTION WIDTH 19.3 % (11.7-14.4)
[2019-09-29 05:20] LABS: ANION GAP 13.3 mmol/L (8-16); CALCIUM 8.2 mg/dL (8.4-10.2); CREATININE, SERUM 5.36 mg/dL (0.72-1.25); POTASSIUM 3.3 mmol/L (3.5-5.1)
[2019-09-29] MEDS: BUMETANIDE INJ 0.25MG/ML 4ML VIAL IV SCH ×3 (06:19→21:33)
[2019-09-29] MEDS: PIPERACILLIN/TAZO 2.25 GM 50 ML IV SCH ×2 (06:19→13:44)
[2019-09-29] MEDS: BUDESONIDE/FORMOTEROL 160/4.5MCG INHALER INH SCH ×2 (07:00→19:00)
[2019-09-29] MEDS: INSULIN LISPRO 100 UNIT/1 ML 3ML VIAL SQ SCH ×4 (07:30→21:32)
[2019-09-29] MEDS: PANTOPRAZOLE SOD 40 MG TABEC PO SCH (08:33)
[2019-09-29] MEDS: AMIODARONE HCL 200 MG TAB PO SCH ×2 (08:33→17:37)
[2019-09-29] MEDS: ISOSORBIDE MONONITRATE 30 MG TAB CR PO SCH (08:33)
[2019-09-29] MEDS: FAMOTIDINE 20 MG TAB PO SCH (08:33)
[2019-09-29] MEDS: METOPROLOL TARTRATE 25 MG TAB PO SCH ×2 (08:33→21:31)
[2019-09-29] MEDS: ALLOPURINOL 100 MG TAB PO SCH ×2 (08:34→17:39)
[2019-09-29] MEDS: RANOLAZINE 500 MG TABSR PO SCH ×2 (08:34→17:39)
[2019-09-29] MEDS: DEXTROSE 5%/0.45% SOD CHL 1,000 ML IV SCH (10:00)
[2019-09-29] MEDS: RIVAROXABAN 10 MG TABLET PO SCH (17:39)
--- NOTE | 2019-09-29 17:57 | NUR ---
Per manny Patel for patient to transfer to Med Surg. Spoke with Dr Freire, alonso rec'd for Med Surg with telemetry. Report called to LEO Hernandez for Room 210.
[2019-09-29] MEDS ORDERED: ADENOSINE 6MG/2ML 1 ML ONE (18:42)
--- NOTE | 2019-09-29 19:10 | NUR ---
RECEIVED REPORT FROM PREVIOUS NURSE. CALL LIGHT WITHIN REACH. PATIENT IN BED. AT THE BEDSIDE
--- NOTE | 2019-09-29 20:06 | Progress Note ---
DATE: 09/29/2019 Medicine Progress Note SUBJECTIVE: The patient is doing well today with no complaints. He has been downgraded from ICU to the medical floor. The patient reports he is chronically hypotensive at home. He is currently hypotensive at his baseline. PHYSICAL EXAMINATION: VITAL SIGNS: Temperature 98, pulse rate 85, respiratory rate is 18, blood pressure 94/67, and pulse ox 100% on room air. GENERAL: Not in acute distress. Alert and oriented x3. Cooperative on examination. HEENT: Head; normocephalic, atraumatic. Eyes; pupils are equal, round, and reactive to light bilaterally. Extraocular movements intact bilaterally. Throat; no evidence of erythema or exudates in the posterior pharynx. Has poor dentition. NECK: Supple. Good range of motion. PULMONARY: Clear to auscultation bilaterally. No wheezing, no rales, no rhonchi, no crackles appreciated. CARDIOVASCULAR: Positive S1 and S2. No murmurs, rubs, or gallops appreciated. ABDOMEN: Soft, nondistended, and nontender to palpation. Bowel sounds present. MUSCULOSKELETAL: Strength is 5/5 throughout. No evidence of any muscle deficits on examination. No weakness appreciated. NEUROLOGIC: Cranial nerves 2 through 12 grossly intact. No evidence of any neurological deficits on exam. SKIN: Intact. Warm to touch. Good cap refill. PSYCHIATRIC: Normal affect and mood. EXTREMITIES: No edema. Good range of motion throughout. LABORATORY DATA: Show white count 8.8, hemoglobin 8.4, hematocrit is 27.9, and platelets of 223. Coagulation; PT 16 and INR 1.28. Chemistry; sodium 138, potassium 3.3, chloride 103, bicarb 25, anion gap of 13, BUN is 45, creatinine 5.3, and glucose is 73. Point of care glucose 156. MICROBIOLOGY: Nothing new. IMAGING STUDIES: Nothing new. IMPRESSION: 1. Status post abdominal hernia repair. 2. Small bowel obstruction-resolving. 3. End-stage renal disease, on hemodialysis. 4. Congestive heart failure with systolic dysfunction with EF of less than 30% with AICD. 5. Urinary retention with Christopher catheter placement. PLAN: At this time, continue with postop care, in which General Surgery is monitoring closely. He has had multiple bowel movements today, which is a good sign that he has resolving small bowel obstruction. We are going to continue minimize pain control. As for his renal failure, apparently and according to Nephrology, he is now on dialysis, in which Dr. Low, Nephrology is following very closely. As for his urinary retention, he has a Christopher catheter, likely to be discharged with a Christopher as per Urology. As for his atrial fibrillation, the patient is being followed by Cardiology. At this time, we will get PT and OT involved. He is on Xarelto for DVT prophylaxis. Consultants involved Nephrology, Cardiology, Urology, and General Surgery. I need to discuss with the flanging operator if he needs long-term hemodialysis as an outpatient. MD KEIRY Perez/MODL /[id number]
[2019-09-29] MEDS: INSULIN GLARGINE 100 UNITS/ML VIAL SQ SCH (21:33)
[2019-09-30] VITALS (8 sets, daily range): BP systolic 91–113; BP diastolic 61–73
[2019-09-30] MEDS: LEVALBUTEROL HCL SOLN NEBU 1.25 MG/3 ML NEB INH SCH ×4 (00:10→18:55)
[2019-09-30] MEDS: IPRATROPIUM BROMIDE 0.02% 2.5 ML NEB NEB SCH ×4 (00:10→18:55)
[2019-09-30 05:32] LABS: BASOPHILS % 0.2 % (0.0-1.0); EOSINOPHILS # (AUTO) 0.1 (0.0-0.4); EOSINOPHILS % 1.4 % (0.0-6.0); HEMATOCRIT 28.3 % (38.2-49.6); HEMOGLOBIN 8.8 g/dL (14.0-18.0); LYMPHOCYTES # (AUTO) 1.5 (1.0-3.2); LYMPHOCYTES % 14.9 % (18.0-39.1); MEAN CORPUSCULAR HEMOGLOBIN 29.9 pg (28-32); MEAN CORPUSCULAR HGB CONC 31.1 g/dL (31-35); MEAN CORPUSCULAR VOLUME 96.3 fL (81-99); MONOCYTES # (AUTO) 1.1 (0.2-0.8); MONOCYTES % 10.8 % (4.4-11.3); NEUTROPHILS # (AUTO) 7.3 (2.1-6.9); NEUTROPHILS % 71.6 % (38.7-80.0); PLATELET COUNT 245 x10e3/uL (140-360); RED BLOOD COUNT 2.94 x10e6/uL (4.3-5.7); RED CELL DISTRIBUTION WIDTH 19.3 % (11.7-14.4)
[2019-09-30 05:42] LABS: ANION GAP 16.2 mmol/L (8-16); CALCIUM 8.1 mg/dL (8.4-10.2); CREATININE, SERUM 5.96 mg/dL (0.72-1.25); POTASSIUM 3.2 mmol/L (3.5-5.1)
[2019-09-30] MEDS: BUMETANIDE INJ 0.25MG/ML 4ML VIAL IV SCH (06:00)
[2019-09-30] MEDS: INSULIN LISPRO 100 UNIT/1 ML 3ML VIAL SQ SCH ×4 (07:30→21:00)
--- NOTE | 2019-09-30 07:43 | NUR ---
GAVE BEDSIDE SHIFT REPORT TO ONCOMING NURSE. CALL LIGHT WITHIN REACH. PATIENT IN BED.
--- NOTE | 2019-09-30 08:03 | NUR ---
paged to notify of K3.2
[2019-09-30] MEDS: AMIODARONE HCL 200 MG TAB PO SCH ×2 (08:43→16:57)
[2019-09-30] MEDS: PANTOPRAZOLE SOD 40 MG TABEC PO SCH (08:43)
[2019-09-30] MEDS: FAMOTIDINE 20 MG TAB PO SCH (08:43)
[2019-09-30] MEDS: RANOLAZINE 500 MG TABSR PO SCH ×2 (08:43→16:58)
[2019-09-30] MEDS: ISOSORBIDE MONONITRATE 30 MG TAB CR PO SCH (08:43)
[2019-09-30] MEDS: METOPROLOL TARTRATE 25 MG TAB PO SCH ×2 (08:44→21:00)
[2019-09-30] MEDS: ALLOPURINOL 100 MG TAB PO SCH ×2 (08:44→17:29)
[2019-09-30] MEDS: BUDESONIDE/FORMOTEROL 160/4.5MCG INHALER INH SCH ×2 (09:29→18:55)
--- NOTE | 2019-09-30 14:23 | NUR ---
WOUND CARE NURSE INITIAL EVALUATION. 78 YEAR OLD MALE ADMITTED TO [facility] WITH DX OF ABDOMINAL PAIN AND CELLULITIS TO ABDOMINAL WALL. HEAD TO TOE SKIN ASSESSMENT PERFORMED TODAY. HE IS S/P REPAIR, INCARCERATED HERNIA REPAIR. AMAN TO ABDOMEN ARE INTACT. HEALING DTI TO RIGHT BUTTOCK. NO S/S OF INFECTION. NO OTHER AREAS OF CONCERN NOTED TODAY. LABS: WBC: 10.17 GLUCOSE: 86 ALB: 2.2 RECOMMENDATIONS: REPOSITION PT EVERY TWO HOURS AND PRN. CONTINUE TO COVER RIGHT BUTTOCK WITH ALLEVYN FOAM DRESSING AND MONITOR DAILY. PROVIDE PT HEEL PROTECTORS. CONTINUE WITH ALTERNATING LOW AIR LOSS MATTRESS. THANKS FOR THIS CONSULTATION. Addendum: 09/30/19 at 1437 by Maru Pathak RN Amended: Links added.
--- NOTE | 2019-09-30 16:40 | NUR ---
SPOKE WIHT PT AND SPOUSE AT BEDSIDE ABOUT DIALYSIS ORDER, SIGNED CHOICE FOR [facility]. FILED IN CHART AND FAXED TO ADMISSIONS LINE [phone].
--- NOTE | 2019-09-30 19:17 | NUR ---
Report given to oncoming nurse of patient's status. Resting in bed. AAOX3 to time, person, place. Respirations even and unlabored. Side rails upx2, call light within reach, bed alarm on, hd nurse at bedside, at bedside.
--- NOTE | 2019-09-30 20:00 | NUR ---
BEDSIDE REPORT TAKEN, PT GETTING DIALYSIS AT BEDSIDE, TOLERATING WELL, VS STABLE, NO DISTRESS NOTED, 2L NC O2 ON PT, RIGHT IJ INTACT, FLOEY DRAINING, MIDLINE INCISION WITH DRESSING, CDI, TELE ON PT, FAMILY AT BEDSIDE CALL LIGHT IN REACH
--- NOTE | 2019-09-30 20:27 | Progress Note ---
DATE: 09/30/2019 Medicine Progress Note SUBJECTIVE: The patient is doing well today with no complaints. Discussed this case with Nephrology this morning. Reports that the patient has end-stage renal disease and will need outpatient HD unit. The tunneled catheter placement will be performed likely tomorrow and case management has been notified for dialysis placement. PHYSICAL EXAMINATION: VITAL SIGNS: Temperature is 97.4, pulse 92, respiratory rate is 19, blood pressure 102/67, and pulse ox 100% on 1 L nasal cannula. GENERAL: Not in acute distress. Alert and oriented x3. Cooperative on examination. HEENT: Head; normocephalic, atraumatic. Eyes; pupils are equal, round, and reactive to light bilaterally. Extraocular movements intact bilaterally. Throat; no evidence of erythema or exudates in the posterior pharynx. Has poor dentition. NECK: Supple. Good range of motion. PULMONARY: Clear to auscultation bilaterally. No wheezing, no rales, no rhonchi, no crackles appreciated. CARDIOVASCULAR: Positive S1 and S2. No murmurs, rubs, or gallops appreciated. ABDOMEN: Soft, nondistended, and nontender to palpation. Bowel sounds present. MUSCULOSKELETAL: Strength is 5/5 throughout. No evidence of any muscle deficits on examination. No weakness appreciated. NEUROLOGIC: Cranial nerves 2 through 12 grossly intact. No evidence of any neurological deficits on exam. SKIN: Intact. Warm to touch. Good cap refill. PSYCHIATRIC: Normal affect and mood. EXTREMITIES: No edema. Good range of motion throughout. LABORATORY FINDINGS: Show white count 10.1, hemoglobin 8.8, hematocrit is 28.3, and platelets of 245. Chemistry; sodium 134, potassium 3.3, chloride 101, bicarb 20, anion gap of 16, BUN is 15, creatinine is 5.9, and calcium is 8.1. Blood and urine cultures were negative. IMAGING STUDIES: Nothing new today. IMPRESSION: 1. Status post abdominal hernia repair, being followed by General Surgery. 2. Small bowel obstruction-resolved. 3. End-stage renal disease, on hemodialysis. 4. Congestive heart failure with systolic dysfunction with EF of less than 30% with AICD. 5. Urinary retention with Christopher catheter placement. PLAN: At this time, continue with postop care, pain control, in which General Surgery is monitoring closely. He is doing much better today and his ileus has resolved. As for his renal failure, I spoke with the patient's skin care instructor. He agreed that the patient does need outpatient HD unit, in which case management has been notified. A tunneled catheter placement will be performed likely tomorrow. As for his urinary retention, we will continue with the Christopher catheter. As for his atrial fibrillation, he is being followed by Cardiology. Continue with PT and OT. He is on Xarelto for DVT prophylaxis. The patient refuses to go to half-way facility instead wants to go home when discharge. Consultants involved Nephrology, Cardiology, Urology, and General Surgery. The patient will likely be here several more days. MD KEIRY Perez/[place] /[id number]
[2019-09-30] MEDS: INSULIN GLARGINE 100 UNITS/ML VIAL SQ SCH (21:00)
[2019-09-30] MEDS: HYDROCODONE/APAP 5MG-325MG TAB PO PRN (22:14)
--- NOTE | 2019-09-30 22:30 | NUR ---
DIALYSIS FINISHED, 1000CC TAKEN OFF, TOLERATED WELL, NO DISTRESS NOTED, PT IS NPO AFTER MIDNIGHT FOR PROCEDURE IN AM, FAMILY AT BEDSIDE, CALL LIGHT IN REACH, VS STABLE
[2019-10-01] VITALS (8 sets, daily range): BP systolic 86–116; BP diastolic 53–75
[2019-10-01] MEDS: LEVALBUTEROL HCL SOLN NEBU 1.25 MG/3 ML NEB INH SCH ×4 (00:20→18:30)
[2019-10-01] MEDS: IPRATROPIUM BROMIDE 0.02% 2.5 ML NEB NEB SCH ×4 (00:20→18:30)
[2019-10-01 05:14] LABS: BASOPHILS % 0.2 % (0.0-1.0); EOSINOPHILS # (AUTO) 0.1 (0.0-0.4); EOSINOPHILS % 0.7 % (0.0-6.0); HEMATOCRIT 26.9 % (38.2-49.6); HEMOGLOBIN 8.4 g/dL (14.0-18.0); LYMPHOCYTES # (AUTO) 1.5 (1.0-3.2); LYMPHOCYTES % 14.9 % (18.0-39.1); MEAN CORPUSCULAR HEMOGLOBIN 29.6 pg (28-32); MEAN CORPUSCULAR HGB CONC 31.2 g/dL (31-35); MEAN CORPUSCULAR VOLUME 94.7 fL (81-99); MONOCYTES # (AUTO) 1.1 (0.2-0.8); MONOCYTES % 11.2 % (4.4-11.3); NEUTROPHILS # (AUTO) 7.1 (2.1-6.9); NEUTROPHILS % 72.3 % (38.7-80.0); PLATELET COUNT 226 x10e3/uL (140-360); RED BLOOD COUNT 2.84 x10e6/uL (4.3-5.7); RED CELL DISTRIBUTION WIDTH 19.2 % (11.7-14.4)
[2019-10-01 05:34] LABS: ANION GAP 12.1 mmol/L (8-16); CALCIUM 7.8 mg/dL (8.4-10.2); CREATININE, SERUM 3.26 mg/dL (0.72-1.25); POTASSIUM 3.1 mmol/L (3.5-5.1)
[2019-10-01] MEDS: BUDESONIDE/FORMOTEROL 160/4.5MCG INHALER INH SCH ×2 (07:00→19:00)
--- NOTE | 2019-10-01 07:00 | NUR ---
BEDSIDE SHIFT REPORT RECEIVED FROM MIDDLEWARE ENGINEER NURSE. PT DENIES NEEDS AT THIS TIME.
[2019-10-01] MEDS: INSULIN LISPRO 100 UNIT/1 ML 3ML VIAL SQ SCH ×4 (07:30→21:00)
--- NOTE | 2019-10-01 08:30 | NUR ---
SPOKE WITH TEA FROM [employer], PT INFORMATION RECEIVED AND IS PROCESSING FOR PLACEMENT.
[2019-10-01] MEDS: FAMOTIDINE 20 MG TAB PO SCH (09:00)
[2019-10-01] MEDS: ISOSORBIDE MONONITRATE 30 MG TAB CR PO SCH (09:00)
[2019-10-01] MEDS: ALLOPURINOL 100 MG TAB PO SCH ×2 (09:00→17:39)
[2019-10-01] MEDS: AMIODARONE HCL 200 MG TAB PO SCH ×2 (09:00→17:38)
[2019-10-01] MEDS: METOPROLOL TARTRATE 25 MG TAB PO SCH ×2 (09:00→21:00)
[2019-10-01] MEDS: RANOLAZINE 500 MG TABSR PO SCH ×2 (09:00→17:39)
[2019-10-01] MEDS: PANTOPRAZOLE SOD 40 MG TABEC PO SCH (09:00)
[2019-10-01] MEDS ORDERED: HEPARIN SOD (PORCINE) 1000 UNIT/ML SDV ONE (09:52)
[2019-10-01] MEDS ORDERED: FENTANYL CITRATE/PF 100MCG/2 ML INJ ONE (09:52)
[2019-10-01] MEDS ORDERED: MIDAZOLAM HCL 2 MG/2 ML VIAL ONE (09:52)
[2019-10-01] MEDS ORDERED: LIDOCAINE HCL 1% LOCAL INJ 20 ML VIAL ONE (09:59)
[2019-10-01] MEDS ORDERED: SODIUM CHLORIDE 0.9% 250ML 250 ML ONE (09:59)
[2019-10-01] MEDS ORDERED: CEFTRIAXONE SOD 1 GM/NS 50 ML 50 ML IV ONE (11:00)
--- NOTE | 2019-10-01 11:51 | Diagnostic Imaging Report ---
PROCEDURE: Tunneled central venous catheter placement Procedural Personnel Attending physician(s): Vazquez Payton DO Fellow physician(s): None Resident physician(s): None Advanced practice provider(s): None Pre-procedure diagnosis: Renal failure Post-procedure diagnosis: Same Indication: Same Additional clinical history: None Complications: No immediate complications. IMPRESSION: Insertion of right-sided dual-lumen tunneled 14.5 [place] catheter, with tip in the expected location of the right atrium. Plan: The catheter may be used immediately. PROCEDURE SUMMARY: - Venous access with ultrasound guidance - Tunneled central venous catheter insertion with fluoroscopic guidance - Additional procedure(s): None PROCEDURE DETAILS: Pre-procedure Consent: Informed consent for the procedure including risks, benefits and alternatives was obtained and time-out was performed prior to the procedure. Preparation (MIPS): The site was prepared and draped using all elements of maximal sterile barrier technique including sterile gloves, sterile gown, cap, mask, large sterile sheet, sterile ultrasound probe cover, hand hygiene and cutaneous antisepsis with 2% chlorhexidine. Medical reason for site preparation exception (MIPS): Not applicable Anesthesia/sedation Level of anesthesia/sedation: Moderate sedation (conscious sedation), 0.5 mg Versed, 0.25 mcg fentanyl Anesthesia/sedation administered by: Independent trained observer under attending supervision with continuous monitoring of the patient?s level of consciousness and physiologic status Total intra-service sedation time (minutes): 30 Access Local anesthesia was administered. The vessel was sonographically evaluated and determined to be patent. Real time ultrasound was used to visualize needle entry into the vessel and a permanent image was saved. Vein accessed: Right Internal jugular vein Access technique: Ultrasound guided 19-gauge needle Venography Indication for venography: Not applicable Vein catheterized: Not applicable Findings: Not applicable Catheter placement An incision was made near the venous access site and the catheter was tunneled subcutaneously to the venous access site The catheter was advanced via a peel-away sheath into the vein under fluoroscopic guidance. Catheter tip location was fluoroscopically verified and a permanent image was stored. Catheter placed: Palindrome Catheter size ([place]): 14.5 Closure A sterile dressing was applied. Access site closure technique: Tissue adhesive Catheter securement technique: Non-absorbable suture and pursestring suture Contrast Contrast agent: None Contrast volume (mL): 0 Radiation Dose Kerma area product: 3.36 mGy Additional Details Additional description of procedure: None Equipment details: None Specimens removed: None Estimated blood loss (mL): Less than 10 Standardized report: [id number] Attestation Signer name: Vazquez Payton MD I attest that I was present for the entire procedure. I reviewed the stored images and agree with the report as written. Signed by: Vazquez Payton MD on 10/01/2019 11:48 AM
[2019-10-01] MEDS ORDERED: ONDANSETRON HCL 4 MG ORAL DISINTEGRATING TAB PO PRN (13:30)
--- NOTE | 2019-10-01 13:50 | NUR ---
[facility] CANNOT TAKE TUNNEL CATH ALSO NEED CORRECT HEP B SURFACE ANTIBODY TEST COMPLETED.
--- NOTE | 2019-10-01 16:18 | NUR ---
SPOKE WITH DR ALFRED ABOUT TUNNEL CATH AND HE CALLED [facility] AND GOT PERMISSION TO FOR [facility] TO TAKE THE PATIENT. LET THE ADMISSION LINE KNOW ABOUT THE APPROVAL, WAS TOLD WILL FAX LETTER FOR CHAIR TIME FOR A T, TH AND SAT SLOT.
--- NOTE | 2019-10-01 16:49 | NUR ---
Nutrition Follow-up Note RD Recommendation(s) for Physician: -Continue Renal diet, recommend 1800 ADA restriction if BG trends up -Nepro once daily for adequacy Plan of Care: RD following, monitoring for tolerance and adequacy, ONS Diet education 09/30 Nutrition reason for involvement: Follow up RD Assessment: 09/30: Follow up. Pt s/p dialysis catheter placement this am with plan for HD today. Diet advanced to renal yesterday, pt tolerating po x 3 dys. Noted current intake of 75%. Pt denies any GI distress. Pt reports drinking Nepro that he was receiving previously, RD to re-order as snack. Pt and receptive to renal diet education at time of visit. Pt fatigued, sleeping at time of diet education- materials reviewed with pt's emphasizing K foods. All questions and concerns addressed at time of visit. Will continue to monitor. (09/28/19) Following up on this patient. Labs reviewed. Potassium and Phosphorus WNL. CT abdomen on 09/26 showed persistently dilated loops of small bowel with air-fluid levels, suggestive of ileus versus obstruction; previously herniated loop of small bowel has been reduced following laparotomy and new trace ascites. Visited pt in the room. Pt reported improvement in his symptoms. No complain of nausea or vomiting. Pt had a BM this morning. NGT has been removed. NPO x 3 days. Per RN, plan to start diet tomorrow. Will revisit when diet initiated. (09/24/19) Pt is a 78 year old male admitted with abdominal pain, cellulitis of abdominal wall, incarcerated hernia, non-STEMI, renal insufficiency, and SBO. Pt had repair of umbilical hernia on 09/21. Pt was receiving dialysis at time of visit and RD mainly spoke to family member at bedside. Pt had been on an NPO/clear liquid diet for > 4 days (since 09/18). Pt was advanced to a GI soft diet today. Family member reported pt consumed 25% of breakfast this morning and had vomited. Pt was interested in a nutrition supplement. Prior to admission, family member reported pt ate >50% of his meals. Pts weight usually fluctuates due to fluid and pt usually weighs 186 lbs without excess fluid per family member. Pt currently has a weight of 207 lbs in chart. Will continue to monitor. Principal Problems/Diagnoses: abdominal pain, cellulitis of abdominal wall, incarcerated hernia, non-STEMI, renal insufficiency, and SBO PMH: afib, CKD, dyslipidemia, enlarged prostate, CAD with history of coronary artery bypass graft, anticoagulant therapy for afib, CHF, and diabetes GI: LBM 09/30; soft, round, tender abdomen, flatus present Skin: no pressure ulcers, + abdominal wound Labs: 09/30: Na 138, K 3.1, BUN 21, Cr 3.26, Gluc 49, POC Gluc 72-111 (09/28/19) Na 135 L, BUN 33 H, Creatinine 4.4 H (09/24/19) Na 135, BUN 76, Creat 4.67. Glu 128, Ca 7.6 Meds: norco, protonix, pepcid, lispor, lantus, zofran, IV albumin Ht: 67 inches Wt: 207.5 lbs; 186lb (suggested fluids loss) BMI: 32.5 kg/m2 IBW: 148 lbs Malnutrition Evaluation (09/24/2019) The patient does not meet criteria for a specified degree of malnutrition at this time. Will re-evaluate at follow-up as appropriate. Nutrition Prescription (Diet Order): Renal Estimated Nutritional Needs: 4871-5904 calories/day (22-25 kcal/kg IBW) 81-101 g protein/day (1.2-1.5 g pro/kg IBW) Diet Adequacy: Not meeting calorie needs, Not meeting protein needs Tolerance: tolerating po Diet Education Needs Assessment: Diet education indicated, pt and receptive. Diet education provided 09/30. Learner(s): pt's Barriers: none Cultural/Language Modifications: none Readiness: ready Method: handouts, discussion Topics: renal diet restrictions- Na, K, Phos, fluid Understanding/Compliance: good Nutrition Care Level: moderate Nutrition Diagnosis: Inadequate energy intake related to decreased ability to consume sufficient energy as evidenced pt being on NPO/clear liquid diet for 3 days. Goal: Patient will meet 75-100% of estimated needs by follow up Progress: Progressing Interventions: - Mineral modified diet, Commercial beverage Monitoring/Evaluation: -Total energy intake, Total protein intake, Modified diet, Liquid supplement, Weight change Signed: Indira Esparza RD, LD, [facility]
--- NOTE | 2019-10-01 16:52 | NUR ---
PT ACCEPTED AT [facility] [address], TH AND SAT AT 12:20PM, START DATE IS OCTOBER 05, 2019, FILED LETTER IN CHART AND GAVE COPIES TO PT.
--- NOTE | 2019-10-01 19:57 | Progress Note ---
DATE: 10/01/2019 Medicine Progress Note SUBJECTIVE: The patient is doing well today with no complaints. Awaiting for outpatient hemodialysis chair time scheduled. PHYSICAL EXAMINATION: VITAL SIGNS: Temperature 97.2, pulse 96, respiratory rate is 19, blood pressure 116/65, and pulse ox 100% on room air. GENERAL: Not in acute distress. Alert and oriented x3. Cooperative on examination. HEENT: Head; normocephalic, atraumatic. Eyes; pupils are equal, round, and reactive to light bilaterally. Extraocular movements intact bilaterally. Throat; no evidence of erythema or exudates in the posterior pharynx. Has poor dentition. NECK: Supple. Good range of motion. PULMONARY: Clear to auscultation bilaterally. No wheezing, no rales, no rhonchi, no crackles appreciated. CARDIOVASCULAR: Positive S1 and S2. No murmurs, rubs, or gallops appreciated. ABDOMEN: Soft, nondistended, and nontender to palpation. Bowel sounds present. MUSCULOSKELETAL: Strength is 5/5 throughout. No evidence of any muscle deficits on examination. No weakness appreciated. NEUROLOGIC: Cranial nerves 2 through 12 grossly intact. No evidence of any neurological deficits on exam. SKIN: Intact. Warm to touch. Good cap refill. PSYCHIATRIC: Normal affect and mood. EXTREMITIES: No edema. Good range of motion throughout. LABORATORY DATA: Show white count 9.8, hemoglobin 8.4, hematocrit is 26.9, and platelets of 226. Chemistries reviewed, shows sodium 138, potassium 3.1, chloride 103, bicarb 26, anion gap of 12, BUN is 21, and creatinine is 3.2. His glucose was 49, now 106. Calcium is 7.8. Urinalysis noted. IMPRESSION: 1. Status post abdominal hernia repair, being followed by General Surgery. 2. Small bowel obstruction-resolved. 3. End-stage renal disease, on hemodialysis. 4. Congestive heart failure with systolic dysfunction. Ejection fraction of less than 30% with AICD. 5. Urinary retention with a Christopher catheter placement. 6. Type 2 diabetes, found to be hypoglycemic this morning. PLAN: At this time, continue with postop care, pain control. General Surgery is following very closely. His small bowel obstruction resolved with good bowel movements. A tunneled dialysis catheter has been placed. Outpatient HD unit is being scheduled by case management. Nephrology is following. HD per Nephrology. Continue with cardioprotective medications. Continue with Christopher catheter as per Urology recommendations. His atrial fibrillation is being managed by Cardiology. His glucose levels was found to be low this morning. I did decrease the Lantus to 20 units at bedtime. I got a hemoglobin A1c in morning labs. Xarelto for DVT prophylaxis. The patient seems to be not wanting [facility] facility. Consultants; Nephrology, Cardiology, Urology, and General Surgery. Likely here several days. MD KEIRY Perez/MODL /[id number]
[2019-10-01] MEDS ORDERED: INSULIN GLARGINE 100 UNITS/ML VIAL SQ SCH (21:00)
[2019-10-02] VITALS (8 sets, daily range): BP systolic 102–127; BP diastolic 60–82
[2019-10-02 05:11] LABS: BASOPHILS % 0.3 % (0.0-1.0); EOSINOPHILS # (AUTO) 0.1 (0.0-0.4); EOSINOPHILS % 1.1 % (0.0-6.0); HEMATOCRIT 27.7 % (38.2-49.6); HEMOGLOBIN 8.4 g/dL (14.0-18.0); LYMPHOCYTES # (AUTO) 1.3 (1.0-3.2); LYMPHOCYTES % 11.8 % (18.0-39.1); MEAN CORPUSCULAR HEMOGLOBIN 29.8 pg (28-32); MEAN CORPUSCULAR HGB CONC 30.3 g/dL (31-35); MEAN CORPUSCULAR VOLUME 98.2 fL (81-99); MONOCYTES # (AUTO) 1.1 (0.2-0.8); MONOCYTES % 9.2 % (4.4-11.3); NEUTROPHILS # (AUTO) 8.7 (2.1-6.9); NEUTROPHILS % 76.6 % (38.7-80.0); PLATELET COUNT 207 x10e3/uL (140-360); RED BLOOD COUNT 2.82 x10e6/uL (4.3-5.7); RED CELL DISTRIBUTION WIDTH 19.7 % (11.7-14.4)
[2019-10-02 05:25] LABS: ANION GAP 13.2 mmol/L (8-16); CALCIUM 8.1 mg/dL (8.4-10.2); CREATININE, SERUM 4.38 mg/dL (0.72-1.25); POTASSIUM 3.2 mmol/L (3.5-5.1)
[2019-10-02] MEDS: BUDESONIDE/FORMOTEROL 160/4.5MCG INHALER INH SCH ×2 (07:00→20:30)
--- NOTE | 2019-10-02 07:00 | NUR ---
bedside shift report received from PM RN, pt in stable condition.
[2019-10-02] MEDS: IPRATROPIUM BROMIDE 0.02% 2.5 ML NEB NEB SCH ×4 (07:08→20:30)
[2019-10-02] MEDS: LEVALBUTEROL HCL SOLN NEBU 1.25 MG/3 ML NEB INH SCH ×4 (07:08→20:30)
[2019-10-02] MEDS: INSULIN LISPRO 100 UNIT/1 ML 3ML VIAL SQ SCH ×4 (07:30→20:45)
[2019-10-02] MEDS: ISOSORBIDE MONONITRATE 30 MG TAB CR PO SCH (09:00)
[2019-10-02] MEDS: AMIODARONE HCL 200 MG TAB PO SCH ×2 (09:00→18:31)
[2019-10-02] MEDS: RANOLAZINE 500 MG TABSR PO SCH ×2 (09:00→17:00)
[2019-10-02] MEDS: FAMOTIDINE 20 MG TAB PO SCH (09:01)
[2019-10-02] MEDS: PANTOPRAZOLE SOD 40 MG TABEC PO SCH (09:01)
[2019-10-02] MEDS: ALLOPURINOL 100 MG TAB PO SCH ×2 (09:04→18:31)
[2019-10-02] MEDS: METOPROLOL TARTRATE 25 MG TAB PO SCH ×2 (09:43→20:44)
[2019-10-02] MEDS: EPOETIN ALFA-EPBX 10,000 UNIT/ML VIAL SC SCH (20:44)
[2019-10-02] MEDS: INSULIN GLARGINE 100 UNITS/ML VIAL SQ SCH (20:45)
--- NOTE | 2019-10-02 21:06 | Progress Note ---
DATE: 10/02/2019 SUBJECTIVE: The patient is doing well today with no complaints. The patient already has a dialysis chair time scheduled, but now is having significant amount of diarrhea. He had multiple bouts today and late last night. He is currently on antibiotics. OBJECTIVE: VITAL SIGNS: Temperature is 97.4, pulse 90, respiratory rate is 18, blood pressure is 113/76, pulse ox 96% on 2 L nasal cannula. GENERAL: Not in acute distress. Alert and oriented x3. Cooperative on examination. HEENT: Head; normocephalic, atraumatic. Eyes; pupils are equal, round, and reactive to light bilaterally. Extraocular movements intact bilaterally. Throat; no evidence of erythema or exudates in the posterior pharynx. Has poor dentition. NECK: Supple. Good range of motion. PULMONARY: Clear to auscultation bilaterally. No wheezing, no rales, no rhonchi, and no crackles appreciated. CARDIOVASCULAR: Positive S1, S2. No murmurs, rubs, or gallops appreciated. ABDOMEN: Soft, nondistended, and nontender to palpation. Bowel sounds present. MUSCULOSKELETAL: Strength is 5/5 throughout. No evidence of any muscle deficits on examination. No weakness appreciated. NEUROLOGIC: Cranial nerves II through XII are grossly intact. No evidence of any neurological deficits on exam. SKIN: Intact. Warm to touch. Good cap refill. PSYCHIATRIC: Normal affect and mood. EXTREMITIES: No edema. Good range of motion throughout. LABORATORY DATA: Show white count is 11.3, hemoglobin 8.4, hematocrit is 27.7, platelets of 207. Coagulation; PT 16, INR 1.28. Chemistry; sodium 136, potassium 3.2, chloride 103, bicarb 23, anion gap of 13, BUN is 31, creatinine is 4.3, glucose 111, A1c 5.8. IMPRESSION: 1. Status post abdominal hernia repair, being followed by General Surgery. 2. Small bowel obstruction - resolved. 3. End-stage renal disease, on hemodialysis, now has a hemodialysis scheduled Monday, , Monday, first treatment this Monday. 4. Congestive heart failure with systolic dysfunction, ejection fraction of less than 30% with an automatic implantable cardioverter-defibrillator. 5. Urinary retention with a Christopher catheter placement, will be discharged with a Christopher catheter. 6. Type 2 diabetes, found to be hypoglycemic, A1c 5.8. 7. Diarrhea, concerns for Clostridium difficile. PLAN: At this time, continue with postop care, pain control. General Surgery and Wound Care following closely. Bowel obstruction resolved. He is now having diarrhea, for which I ordered a Clostridium difficile toxin and stool cultures. The tunneled dialysis catheter has been in place. He is receiving hemodialysis as we speak. He has received a dialysis chair time TTS, first treatment on Monday. He will receive dialysis tomorrow and then discharge likely. Nephrology is following. As for his atrial fibrillation, is being managed by Cardiology. He is on rate control medications. The patient was hypoglycemic yesterday, but today he was fine. His hemoglobin A1c was 5.8. I decreased his Lantus to 20 units at bedtime. I will go ahead and decrease it to 10 units at bedtime. Continue with Xarelto for DVT prophylaxis. The patient refuses fpc facility placement. Consultants; Nephrology, Cardiology, Urology, and General Surgery. Once again, we are waiting for Clostridium difficile toxin and stool cultures to determine as he continues to have significant diarrhea yesterday evening and today. MD KEIRY Perez/[place] /[id number]
[2019-10-03] VITALS (7 sets, daily range): BP systolic 103–131; BP diastolic 55–67
[2019-10-03] MEDS: LEVALBUTEROL HCL SOLN NEBU 1.25 MG/3 ML NEB INH SCH ×4 (01:30→20:20)
[2019-10-03] MEDS: IPRATROPIUM BROMIDE 0.02% 2.5 ML NEB NEB SCH ×4 (01:30→20:20)
[2019-10-03 05:23] LABS: BASOPHILS # (AUTO) 0.1 (0.0-0.1); BASOPHILS % 0.5 % (0.0-1.0); EOSINOPHILS # (AUTO) 0.1 (0.0-0.4); EOSINOPHILS % 0.7 % (0.0-6.0); HEMATOCRIT 26.3 % (38.2-49.6); HEMOGLOBIN 8.3 g/dL (14.0-18.0); LYMPHOCYTES # (AUTO) 1.2 (1.0-3.2); LYMPHOCYTES % 11.7 % (18.0-39.1); MEAN CORPUSCULAR HEMOGLOBIN 30.5 pg (28-32); MEAN CORPUSCULAR HGB CONC 31.6 g/dL (31-35); MEAN CORPUSCULAR VOLUME 96.7 fL (81-99); MONOCYTES % 9.1 % (4.4-11.3); NEUTROPHILS # (AUTO) 8.1 (2.1-6.9); NEUTROPHILS % 76.9 % (38.7-80.0); PLATELET COUNT 201 x10e3/uL (140-360); RED BLOOD COUNT 2.72 x10e6/uL (4.3-5.7); RED CELL DISTRIBUTION WIDTH 19.8 % (11.7-14.4)
[2019-10-03 05:42] LABS: ANION GAP 12.4 mmol/L (8-16); CALCIUM 7.9 mg/dL (8.4-10.2); CREATININE, SERUM 2.76 mg/dL (0.72-1.25); POTASSIUM 3.4 mmol/L (3.5-5.1)
--- NOTE | 2019-10-03 07:01 | NUR ---
Bedside shift report received from PM nurse; pt awake, alert, no signs of distress.
[2019-10-03] MEDS: INSULIN LISPRO 100 UNIT/1 ML 3ML VIAL SQ SCH ×4 (07:30→20:30)
[2019-10-03] MEDS: AMIODARONE HCL 200 MG TAB PO SCH ×2 (09:34→18:33)
[2019-10-03] MEDS: FAMOTIDINE 20 MG TAB PO SCH (09:37)
[2019-10-03] MEDS: RANOLAZINE 500 MG TABSR PO SCH ×2 (09:37→18:34)
[2019-10-03] MEDS: METOPROLOL TARTRATE 25 MG TAB PO SCH ×2 (09:37→21:00)
[2019-10-03] MEDS: ISOSORBIDE MONONITRATE 30 MG TAB CR PO SCH (09:37)
[2019-10-03] MEDS: ALLOPURINOL 100 MG TAB PO SCH ×2 (09:37→18:34)
[2019-10-03] MEDS: PANTOPRAZOLE SOD 40 MG TABEC PO SCH (09:37)
[2019-10-03] MEDS: BUDESONIDE/FORMOTEROL 160/4.5MCG INHALER INH SCH ×2 (14:00→20:20)
--- NOTE | 2019-10-03 16:23 | NUR ---
Nutrition Follow-up Note RD Recommendation(s) for Physician: -Continue Renal diet -Nepro once daily for added nutrition Plan of Care: RD following, monitoring for tolerance and adequacy, ONS Nutrition reason for involvement: Follow up RD Assessment: 10/02: Follow up note. Spoke to pt and family member. Pt reports he has been eating about 50% of his meals. Pt mentioned he stopped drinking Nepro supplements due to diarrhea, but pt mentioned he will try the supplement again at a later time. No N/V noted. Answered family member and pts questions at time of visit. Will continue to monitor. 09/30: Follow up. Pt s/p dialysis catheter placement this am with plan for HD today. Diet advanced to renal yesterday, pt tolerating po x 3 dys. Noted current intake of 75%. Pt denies any GI distress. Pt reports drinking Nepro that he was receiving previously, RD to re-order as snack. Pt and receptive to renal diet education at time of visit. Pt fatigued, sleeping at time of diet education- materials reviewed with pt's emphasizing K foods. All questions and concerns addressed at time of visit. Will continue to monitor. (09/28/19) Following up on this patient. Labs reviewed. Potassium and Phosphorus WNL. CT abdomen on 09/26 showed persistently dilated loops of small bowel with air-fluid levels, suggestive of ileus versus obstruction; previously herniated loop of small bowel has been reduced following laparotomy and new trace ascites. Visited pt in the room. Pt reported improvement in his symptoms. No complain of nausea or vomiting. Pt had a BM this morning. NGT has been removed. NPO x 3 days. Per RN, plan to start diet tomorrow. Will revisit when diet initiated. (09/24/19) Pt is a 78 year old male admitted with abdominal pain, cellulitis of abdominal wall, incarcerated hernia, non-STEMI, renal insufficiency, and SBO. Pt had repair of umbilical hernia on 09/21. Pt was receiving dialysis at time of visit and RD mainly spoke to family member at bedside. Pt had been on an NPO/clear liquid diet for > 4 days (since 09/18). Pt was advanced to a GI soft diet today. Family member reported pt consumed 25% of breakfast this morning and had vomited. Pt was interested in a nutrition supplement. Prior to admission, family member reported pt ate >50% of his meals. Pts weight usually fluctuates due to fluid and pt usually weighs 186 lbs without excess fluid per family member. Pt currently has a weight of 207 lbs in chart. Will continue to monitor. Principal Problems/Diagnoses: abdominal pain, cellulitis of abdominal wall, incarcerated hernia, non-STEMI, renal insufficiency, and SBO PMH: afib, CKD, dyslipidemia, enlarged prostate, CAD with history of coronary artery bypass graft, anticoagulant therapy for afib, CHF, and diabetes GI: LBM 10/02 liquid stool; soft, large, round, tender abdomen Skin: no pressure ulcers, + abdominal wound, suspected deep tissue injury buttock Labs: 10/02: Na 135, K 3.4, BUN 16, Creat 2.76. Glu 127 09/30: Na 138, K 3.1, BUN 21, Cr 3.26, Gluc 49, POC Gluc 72-111 (09/28/19) Na 135 L, BUN 33 H, Creatinine 4.4 H (09/24/19) Na 135, BUN 76, Creat 4.67. Glu 128, Ca 7.6 Meds: metroprolol, protonix, pepcid, insulin, zofran, hydralazine Ht: 67 inches Wt: 189.5 lbs 186 lbs (09/27) 207.5 lbs (09/23) suspect fluid loss BMI: 29.7 kg/m2 IBW: 148 lbs Malnutrition Evaluation (09/24/2019) The patient does not meet criteria for a specified degree of malnutrition at this time. Will re-evaluate at follow-up as appropriate. Nutrition Prescription (Diet Order): Renal Estimated Nutritional Needs: 1833-0190 calories/day (22-25 kcal/kg IBW) 81-101 g protein/day (1.2-1.5 g pro/kg IBW) Diet Adequacy: Not meeting calorie needs, Not meeting protein needs Tolerance: tolerating po Diet Education Needs Assessment: Diet education provided 09/30. Answered follow-up questions. Nutrition Care Level: moderate Nutrition Diagnosis: Inadequate energy intake related to decreased ability to consume sufficient energy as evidenced pt consuming 50% of meals. Goal: Patient will meet 75-100% of estimated needs by follow up Progress: Progressing Interventions: - Mineral modified diet, Commercial beverage Monitoring/Evaluation: -Total energy intake, Total protein intake, Modified diet, Liquid supplement, Weight change Signed: Yola Marion RD, LD
--- NOTE | 2019-10-03 19:30 | NUR ---
BSSR RECEIVED FROM LEO KUMAR, PATIENT SEEN AT BEDSIDE, AWAKE ALERT, NO DISTRESS NOTED, INFORMED DURING SHIFT CHANGE OF NUGENT DC ORDERED BY MD CULLEN, PER LEO KUMAR NUGENT IS BE MANUALLY FLUSHED SEVERAL TIMES DURING SHIFT UNTIL URINE IS CLEAR, NUGENT 16FR PATENT DRAINING DARK JULIANA URINE, NO SEDIMENTATION NOTED, PATIENT ADVISED OF POC, BED IN LOWEST POSITION CALL LIGHT WITHIN REACH
[2019-10-03] MEDS: INSULIN GLARGINE 100 UNITS/ML VIAL SQ SCH (20:35)
--- NOTE | 2019-10-03 21:48 | NUR ---
PT AOX4, PATIENT MADE AWARE OF NPO ORDER FOR PROCEDURE IN THE AM, NUGENT PATENT DRAINING JULIANA URINE, PATIENT GIVEN EDUCATION ON A/V FISTULA PLACEMENT, CONSENT SIGNED, GIVEN OPPORTUNITY TO ASK QUESTIONS, CONSENT PLACED IN CHART
--- NOTE | 2019-10-03 23:08 | NUR ---
PATIENT UPGRADE TO ICU, PATIENT SEEN AWAKE ALERT, HAVING EPISODE OF DIAPHORESIS, TACHYCARDIA, REPORT GIVEN TO KATHY SILK WINDING MACHINE OPERATOR PRIOR TO TRANSFERRING PATIENT, INFORMED OF ADMISSION HX, PREVIOUS HX, INFORMED OF ORDER BY MD Jose Antonio SOLIS FOR CONSULTS WITH MD FRIAS, MD [facility], STAT EKG ORDERED, RESP NOTIFIED, CARDIAC ENZYMES DRAWN AND TAKEN TO LAB PRIOR TO TRANSFER
[2019-10-04] VITALS (10 sets, daily range): BP systolic 92–123; BP diastolic 59–72
--- NOTE | 2019-10-04 00:30 | NUR ---
DURING HOURLY ROUND PATIENT GIVEN INCONTINENCE CARE, SMALL BM NOTED, SEVERAL SMALL DTI NOTED ON RIGHT BUTTOCK, AREA CLEANSED WELL WITH STERILE WATER, PAT DRY, AND FOAM DRESSING APPLIED TO COCCYX AND RIGHT BUTTOCK
[2019-10-04] MEDS: LEVALBUTEROL HCL SOLN NEBU 1.25 MG/3 ML NEB INH SCH ×4 (01:30→21:00)
[2019-10-04] MEDS: IPRATROPIUM BROMIDE 0.02% 2.5 ML NEB NEB SCH ×4 (01:30→21:00)
--- NOTE | 2019-10-04 06:06 | NUR ---
NUGENT DISCONTINUED AT 0500 PATIENT YET TO VOID, DIALYSIS PATIENT, LESS THAN 100CC NOTED IN DRAINAGE BAG CURRENTLY
[2019-10-04] MEDS: BUDESONIDE/FORMOTEROL 160/4.5MCG INHALER INH SCH ×2 (06:23→21:00)
--- NOTE | 2019-10-04 07:15 | NUR ---
BSSR GIVEN TO CON RN, INFORMED OF DC NUGENT ORDER, PATIENT PENDING A/V FISTULA PLACEMENT TODAY, CONSENT IN CHART, CONSENT DOUBLE CHECKED BY LEO ANDUJAR, UNSIGNED AREAS ON CONSENT SIGNED BY PATIENT, WITNESS BY LEO ANDUJAR AND THIS RN, PATIENT REMAINS NPO FOR PROCEDURE, PATIENT DUE TO VOID BY 10AM S/P NUGENT DISCONTINUATION , IN BED RESTING COMFORTABLY, CALL LIGHT WITHIN REACH, BED IN LOWEST POSITION DENIES PAIN AND DISCOMFORT
[2019-10-04] MEDS: INSULIN LISPRO 100 UNIT/1 ML 3ML VIAL SQ SCH ×4 (07:30→20:55)
--- NOTE | 2019-10-04 08:54 | NUR ---
aware of BP 92/59 and K3.3
[2019-10-04] MEDS: RANOLAZINE 500 MG TABSR PO SCH ×2 (08:56→16:43)
[2019-10-04] MEDS: AMIODARONE HCL 200 MG TAB PO SCH ×2 (08:56→16:43)
[2019-10-04] MEDS ORDERED: METOPROLOL SUCCINATE 50 MG TAB XL PO SCH (09:00)
[2019-10-04] MEDS: MIDODRINE 2.5 MG TAB PO SCH ×3 (10:15→16:43)
--- NOTE | 2019-10-04 10:57 | NUR ---
ASSESSMENT: Spiritual concern Pt's requested crucifix replaced in pt's room. Pt sleeping soundly with at bedside. Pt's states they identify as Rastafarian. Intervention: Provided hospitality and replaced crucifix. Outcome: No need to follow at this time. ANNA TOPETE Repairer And Checker Spiritual Care Department O: [phone]
--- NOTE | 2019-10-04 11:00 | NUR ---
patient has not voided. Bladder scan done 104 ml noted. Patient currently NPO will continue to monitor.
[2019-10-04] MEDS ORDERED: LIDOCAINE HCL 2% LOCAL INJ 5 ML SDV VIAL INJ ONE (11:14)
[2019-10-04] MEDS ORDERED: PROPOFOL IV EMULSION 10 MG/ML 20 ML VIAL ONE (11:14)
[2019-10-04] MEDS ORDERED: CEFAZOLIN SOD 1 GM VIAL ONE (11:14)
[2019-10-04] MEDS ORDERED: SODIUM CHLORIDE 0.9% 500ML 500 ML ONE (11:29)
[2019-10-04] MEDS ORDERED: MIDAZOLAM HCL 2 MG/2 ML VIAL ONE (11:46)
[2019-10-04] MEDS ORDERED: FENTANYL CITRATE/PF 100MCG/2 ML INJ ONE (11:46)
--- NOTE | 2019-10-04 11:49 | NUR ---
Taken for procedure. No s/s of acute distress noted.
[2019-10-04] MEDS ORDERED: SODIUM CHLORIDE 0.9% 0 ML ONE (12:14)
[2019-10-04] MEDS ORDERED: BUPIVACAINE HCL 0.5% INJ 30 ML VIAL INJ ONE (12:14)
[2019-10-04] MEDS ORDERED: HEPARIN SOD (PORCINE) 5,000 UNIT/ML VIAL ONE (12:14)
[2019-10-04] MEDS ORDERED: HEPARIN SOD (PORCINE) 1000 UNIT/ML 30ML ONE (12:14)
[2019-10-04] MEDS ORDERED: PROTAMINE SULFATE 10 MG/ML 5 ML VIAL ONE (12:15)
[2019-10-04] MEDS ORDERED: LIDOCAINE HCL 1% LOCAL INJ 20 ML VIAL ONE (12:26)
--- NOTE | 2019-10-04 14:00 | NUR ---
Back from procedure. s/p av fistula to left arm. Left arm dressing clean, dry, and intact. Bruit heard upon auscultation.
--- NOTE | 2019-10-04 15:05 | NUR ---
bladder scan done 208ml noted. Has not voided. Paged Dr.Hampel De Jesus. to notify of patient's states.
--- NOTE | 2019-10-04 15:07 | NUR ---
Received order for home O2. Home O2 eval was completed. Pt was 100% on room air and on exertion. IMM letter delivered and explained to pt. He verbalized understanding. Signed copy placed in chart. Copy given to pt's family at bedside.
--- NOTE | 2019-10-04 15:35 | NUR ---
Per insert 18 F catheter. Mary Craven at bedside. Attempted to place catheter. Resistance [place]. Paged Dr.Hampel De Jesus. to notify of patient's status.
[2019-10-04 15:37] LABS: ALBUMIN 2.3 g/dL (3.5-5.0); ALBUMIN/GLOBULIN RATIO 0.6 (0.8-2.0); CALCIUM 8.2 mg/dL (8.4-10.2); CREATININE, SERUM 4.11 mg/dL (0.72-1.25)
--- NOTE | 2019-10-04 15:43 | Operative Report ---
DATE OF PROCEDURE: 10/04/2019 SURGEON: Jose Riggs MD PREOPERATIVE DIAGNOSIS: End-stage renal disease. POSTOPERATIVE DIAGNOSIS: End-stage renal disease. PROCEDURE: Left arm primary arteriovenous fistula, brachiocephalic. WEB ANALYTICS DEVELOPER: None. ANESTHESIA: Local with intravenous sedation. INDICATIONS AND FINDINGS: The patient is a 78-year-old male with end-stage renal disease, needs access for long-term hemodialysis. Surgery, there were no abnormalities near the fistula creation. The cephalic vein and median cubital vein were adequate for the fistula. There was excellent pulse in the brachial artery. In the procedure, there was a palpable thrill over the fistula and palpable pulse in the artery distal to the fistula. TECHNIQUE: After adequate intravenous sedation, the patient in supine position, left arm was prepped and draped in a sterile fashion with ChloraPrep solution. Skin and subcutaneous tissue in the antecubital area were infiltrated with 1% lidocaine without epinephrine. Transverse incision was made, carried down through the subcutaneous tissue. The cephalic vein and median cubital vein were dissected free. They were adequate for fistula and appeared to be patent. More medially, incision was carried deeper and brachial artery dissected free and controlled with vessel loop. The median cubital vein was divided distally as possible. A #3 Narda catheter was passed through the vein and passed easily without resistance. The patient was then given 5000 units of intravenous heparin. The brachial artery was clamped proximally and distally. Arteriotomy was made. Anastomosis was then made between the end of the vein and the side of the artery with running suture of 6-0 Prolene. Once flow was allowed to the fistula, there was a palpable thrill over the fistula and palpable pulse in the brachial artery distal to the fistula. Hemostasis in the wound was seen to be adequate. The wound was then closed with 3-0 Vicryl, subcutaneous tissue with 4-0 Vicryl, and subcuticular to the skin. Sterile dressing was applied. The patient tolerated the procedure well. Estimated blood loss was 10 mL. There were no complications. All counts were correct. The patient was taken to the recovery room in satisfactory condition. MD MAEVE Coleman/YUMIKOL /[id number]
[2019-10-04] MEDS: ALLOPURINOL 100 MG TAB PO SCH (16:43)
[2019-10-04] MEDS: EPOETIN ALFA-EPBX 10,000 UNIT/ML VIAL SC SCH (16:43)
[2019-10-04] MEDS: ISOSORBIDE MONONITRATE 30 MG TAB CR PO SCH (16:43)
[2019-10-04] MEDS: PANTOPRAZOLE SOD 40 MG TABEC PO SCH (16:43)
[2019-10-04] MEDS: FAMOTIDINE 20 MG TAB PO SCH (16:43)
[2019-10-04] MEDS ORDERED: SODIUM CHLORIDE 0.9% 1000ML 1,000 ML ONE (16:54)
[2019-10-04] MEDS: HYDROCODONE/APAP 5MG-325MG TAB PO PRN (16:56)
--- NOTE | 2019-10-04 17:18 | NUR ---
Per Dr.Hampel De Jesus. place 18F coude catheter. Placed 18F coude catheter as ordered. 200ml genevieve with sediment urine noted. Mary Craven RN observed insertion of catheter.
--- NOTE | 2019-10-04 19:05 | NUR ---
Report given to oncoming nurse of patient's status. Having HD at this time. at bedside. NO s/s of acute distress noted.
[2019-10-04] MEDS ORDERED: MIDODRINE HCL2.5 MG PO (19:36)
[2019-10-04] MEDS ORDERED: AMIODARONE HCL200 MG PO (19:38)
[2019-10-04] MEDS ORDERED: ELIQUIS2.5 MG PO (19:38)
[2019-10-04] MEDS ORDERED: ISOSORBIDE MONO30 MG PO (19:40)
[2019-10-04] MEDS ORDERED: HEPARIN SOD (PORCINE) 1000 UNIT/ML SDV ONE (20:55)
[2019-10-04] MEDS: INSULIN GLARGINE 100 UNITS/ML VIAL SQ SCH (21:45)
--- NOTE | 2019-10-04 21:45 | NUR ---
R FA 20G IV REMOVED AT THIS TIME, FOR D/C. CATHETER TIP INTACT, PRESSURE DRESSING APPLIED. DISCHARGE PAPERWORK SIGNED, WRITTEN PRESCRIPTIONS GIVEN. WRITTEN AND VERBAL EDUCATION GIVEN ON HOME NUGENT CARE. DEMONSTRATION OF NUGENT CHANGE TO LEG BAG VS OVERNIGHT BAG. PATIENT AND FAMILY MEMBER VERBALIZED UNDERSTANDING, TAUGHT BACK. PATIENT REQUESTS BATH PRIOR TO D/C. HEMODIALYSIS COMPLETE AT 2130, 2L REMOVED.
--- NOTE | 2019-10-04 22:38 | NUR ---
PATIENT D/C AT THIS TIME POST HEMODIALYSIS. PERSONAL BELONGINGS TO SPOUSE. PATIENT EXPRESSED NO PAIN AT THIS TIME. NO S&S OF DISTRESS NOTED. VITALS STABLE. PRESCRIPTIONS PROVIDED. EDUCATION ON NUGENT CARE, LEG BAG, ABDOMINAL PAIN, AND INFECTION CONTROL PROVIDED. ALL QUESTIONS ANSWERED. PATIENT TO PRIVATE CAR VIA WHEELCHAIR, ACCOMPANIED BY STAFF.
--- NOTE | 2019-10-05 09:27 | Discharge Summary ---
CONSULTANTS: 1. Dr. Jose Vergara. 2. Dr. Jt Low. 3. Dr. Jose Saini. 4. Dr. Janet Francis. FINAL DIAGNOSES: 1. Incarcerated abdominal hernia, status post abdominal hernia repair. 2. Status post small bowel obstruction, postoperative care, resolved. 3. End-stage renal disease, on dialysis, subsequent to chronic kidney disease stage 4. 4. Atrial fibrillation, on anticoagulant therapy. 5. Baseline cardiomyopathy with coronary artery disease with previous bypass graft surgery and AICD with cardiomyopathy. SUMMARY: The patient is a 78-year-old male, chronically ill with multiple chronic medical problems with coronary artery disease with previous coronary artery bypass graft surgery and cardiomyopathy with ejection fraction less than 30%. The patient has AICD. He came to the hospital because of increasing abdominal pain and distention secondary to abdominal hernia of incarcerated bowel. Because of his anticoagulant therapy, the patient was treated on medication. He was on Xarelto. Anticoagulant therapy was adequately on hold. The patient underwent surgical intervention with abdominal hernia repair. Postoperatively, the patient first did improve and then subsequently developed ileus to small bowel obstruction. His abdomen was distended. NG tube was placed. The patient has a sign of infection and he has been on antibiotics. He went into worsening renal failure from his stage 4 kidney disease. The patient subsequently underwent dialysis and admitted to dialysis. The patient did receive a Perma catheter subsequent for outpatient dialysis. He is also status post AV fistula placement by Dr. Edison Rosas. Postoperatively, on AV fistula, the patient was stable. His dialysis was set up for Monday, Monday, and . All was arranged. Overall, the patient was better. He is doing much better for the patient to discharge from the hospital. Several options were given to the patient including skilled care for the patient for recovery. The patient and spouse, however, want the patient to go home with home health and outpatient dialysis. Of note, the patient has very good family support, especially with his spouse, who is always with the patient. Overall, the patient was stable. His medication was adjusted. Atrial fibrillation controlled with adjustment of his medication. He is placed on amiodarone and because of his end-stage renal disease and now on dialysis. The patient was placed on Eliquis instead of the Xarelto. Prescription was given. The patient did improve. He is ambulatory. He increased in activity, he tolerated well, and the patient was discharged home after dialysis and outpatient dialysis starting Monday, Monday, and . The patient was stable. Prescription was given. MAR's checklist was done. Medication reconciliation was done with some adjustment. The patient to follow up with his family physician and continue with dialysis and follow up with Dr. Jose Vergara for postoperative care. MD DELORIS Gonzalez/WESTON /[id number]
== END 2019-10-04 22:38 | disposition home or self-care (01) | DRG 353 ==
LOC: ER 15:37 → ERHOLD 20:13 → IMCU 09-20 02:22 → ICU 09-22 17:40 → MED/SURG 09-23 15:16 → ICU 09-25 08:47 → MED/SURG2 09-29 18:10
PROVIDERS: ADMIT Internal Medicine; ATTEND Internal Medicine
PROC: 0DBU0ZZ Excision of Omentum, Open Approach (ICD-10-PCS; 2019-09-22)
PROC: 0WQF0ZZ Repair Abdominal Wall, Open Approach (ICD-10-PCS; principal; 2019-09-22 13:30)
PROC: 02HV33Z Insertion of Infusion Device into Superior Vena Cava, Percutaneous Approach (ICD-10-PCS; 2019-09-23)
PROC: B548ZZA Ultrasonography of Superior Vena Cava, Guidance (ICD-10-PCS; 2019-09-23)
PROC: 5A1D70Z Performance of Urinary Filtration, Intermittent, Less than 6 Hours Per Day (ICD-10-PCS; 2019-09-23)
PROC: 5A1D70Z Performance of Urinary Filtration, Intermittent, Less than 6 Hours Per Day (ICD-10-PCS; 2019-09-24)
PROC: 5A1D70Z Performance of Urinary Filtration, Intermittent, Less than 6 Hours Per Day (ICD-10-PCS; 2019-09-25)
PROC: 5A1D70Z Performance of Urinary Filtration, Intermittent, Less than 6 Hours Per Day (ICD-10-PCS; 2019-09-26)
PROC: 5A1D70Z Performance of Urinary Filtration, Intermittent, Less than 6 Hours Per Day (ICD-10-PCS; 2019-09-27)
PROC: 5A1D70Z Performance of Urinary Filtration, Intermittent, Less than 6 Hours Per Day (ICD-10-PCS; 2019-09-30)
PROC: 0JH63XZ Insertion of Tunneled Vascular Access Device into Chest Subcutaneous Tissue and Fascia, Percutaneous Approach (ICD-10-PCS; 2019-10-01)
PROC: 02HV33Z Insertion of Infusion Device into Superior Vena Cava, Percutaneous Approach (ICD-10-PCS; 2019-10-01)
PROC: B5181ZA Fluoroscopy of Superior Vena Cava using Low Osmolar Contrast, Guidance (ICD-10-PCS; 2019-10-01)
PROC: 5A1D70Z Performance of Urinary Filtration, Intermittent, Less than 6 Hours Per Day (ICD-10-PCS; 2019-10-02)
PROC: 03180ZD Bypass Left Brachial Artery to Upper Arm Vein, Open Approach (ICD-10-PCS; 2019-10-04)
PROC: 5A1D70Z Performance of Urinary Filtration, Intermittent, Less than 6 Hours Per Day (ICD-10-PCS; 2019-10-04)
DX: K42.0 Umbilical hernia with obstruction, without gangrene (principal); N18.6 End stage renal disease; N17.0 Acute kidney failure with tubular necrosis; N17.9 Acute kidney failure, unspecified; L03.311 Cellulitis of abdominal wall; E87.2 Acidosis; I50.20 Unspecified systolic (congestive) heart failure; K56.7 Ileus, unspecified; I48.20 Chronic atrial fibrillation, unspecified; I13.2 Hypertensive heart and chronic kidney disease with heart failure and with stage 5 chronic kidney disease, or end stage renal disease; E11.22 Type 2 diabetes mellitus with diabetic chronic kidney disease; Z87.440 Personal history of urinary (tract) infections; E78.5 Hyperlipidemia, unspecified; Z95.810 Presence of automatic (implantable) cardiac defibrillator; I25.10 Atherosclerotic heart disease of native coronary artery without angina pectoris; Z95.1 Presence of aortocoronary bypass graft; Z95.5 Presence of coronary angioplasty implant and graft; Z79.01 Long term (current) use of anticoagulants; N13.9 Obstructive and reflux uropathy, unspecified; R33.9 Retention of urine, unspecified; N40.1 Benign prostatic hyperplasia with lower urinary tract symptoms; R39.14 Feeling of incomplete bladder emptying; N28.1 Cyst of kidney, acquired; N50.0 Atrophy of testis; E66.9 Obesity, unspecified; Z68.32 Body mass index [BMI] 32.0-32.9, adult; I35.0 Nonrheumatic aortic (valve) stenosis; N43.40 Spermatocele of epididymis, unspecified; N52.9 Male erectile dysfunction, unspecified; D64.9 Anemia, unspecified; Z79.4 Long term (current) use of insulin
CPT/HCPCS: 36415; 36556; 36558; 71045; 74018; 74150; 74176; 74470; 76937; 77001; 80048; 80053; 81001; 82550; 82553; 82948; 83036; 83605; 83735; 83880; 84100; 84132; 84484; 85025; 85610; 85730; 86704; 86705; 86706; 86850; 86900; 87040; 87086; 87340; 87493; 90962; 93005; 93306; 94640; 94664; 96367; 97139; 99152; 99285; C1769; C1892; J0153; J0171; J0690; J0696; J1200; J1644; J1815; J2001; J2150; J2250; J2270; J2310; J2370; J2405; J2543; J2720; J3010; J3370; J7030; J7040; J7050; J7060; J7070; J7799